=== PATIENT | male | born 1975 | race Two or more races ===

== ENCOUNTER 2020-03-18 22:19 | Inpatient (IN) | payer SELFPAY ==
[~2020-03-18] VITALS: Ht 157.5 cm; Wt 65.9 kg
[~2020-03-18 22:19] MED LIST: GLIM2TAB PO; METF1000 PO; OXYC5TAB4 PO
[2020-03-18 22:48] LABS: BASO % 0 % (0-3); EOS % 0 % (0-3); HEMATOCRIT 23.5 % (39.0-53.0); HEMOGLOBIN 7.5 g/dL (13.0-17.5); LYMPH # 0.8 x10^3/uL (1.0-4.8); LYMPH % 9 % (24-48); MEAN CORPUSCULAR HEMOGLOBIN 28 pg (25-35); MEAN CORPUSCULAR HGB CONC 32 g/dL (31-37); MEAN CORPUSCULAR VOLUME 88 fL (79-100); MONO # 0.7 x10^3/uL (0.0-1.1); MONO % 9 % (0-9); NEUT # 6.9 x10^3/uL (1.8-7.7); NEUT % 81 % (31-73); PLATELET COUNT 549 x10^3/uL (140-400); RED BLOOD COUNT 2.66 x10^6/uL (4.30-5.70); RED CELL DISTRIBUTION WIDTH 14.5 % (11.5-14.5); WHITE BLOOD COUNT 8.5 x10^3/uL (4.0-11.0)
[2020-03-18 23:04] LABS: ALBUMIN 1.3 g/dL (3.4-5.0); ALBUMIN/GLOBULIN RATIO 0.2 (1.0-1.7); C-REACTIVE PROTEIN 88.7 mg/L (0-3.3); CALCIUM 7.7 mg/dL (8.5-10.1); CREATININE 3.4 mg/dL (0.7-1.3); GFR 19.7; POTASSIUM 5.3 mmol/L (3.5-5.1); TOTAL BILIRUBIN 0.2 mg/dL (0.2-1.0); TOTAL PROTEIN 7.9 g/dL (6.4-8.2)
[2020-03-18] MEDS ORDERED: IV NORMAL SALINE 1000ML BAG 1,000 ML IV ONE (23:45)
--- NOTE | 2020-03-19 01:00 | RAD ---
AP portable chest radiograph 03/18/2020 Clinical History: Chest pain. An AP erect portable digital radiograph of the chest was obtained. No previous studies are available for comparison. The cardiac silhouette is normal in size. The thoracic aorta is minimally tortuous. Elevation right hemidiaphragm is seen. Infiltrate and/or atelectasis is seen involving the right lung probably involving the right lower lobe. The left lung is clear. No pneumothorax or pleural effusion is seen. The osseous structures are grossly intact. IMPRESSION: Right lung atelectasis and/or infiltrate. Electronically signed by: Reddy Fraga MD (03/19/2020 12:57 AM) [id number]
--- NOTE | 2020-03-19 02:20 | RAD ---
INDICATION: Reason: sob, abnormal XR / Spl. Instructions: / History: COMPARISON: Chest x-ray from earlier same day TECHNIQUE: Axial CT images obtained through the chest without contrast. One or more of the following individualized dose reduction techniques were utilized for this examination: 1. Automated exposure control; 2. Adjustment of the mA and/or kV according to patient size; 3. Use of iterative reconstruction technique. FINDINGS: Large loculated pleural effusion throughout the right chest was similar regions appearing higher than simple density which could be from complex component. There is adjacent opacity in the right lung which could be consolidation or mass. Dense masslike opacity in the left lung as well measuring approximately 35 mm. No pneumothorax. Nodular opacity left lower lung. Calcific atherosclerosis. Lymphadenopathy is seen within the mediastinum. Diffuse edema of soft tissues. Fullness of soft tissues in the upper abdomen with motion which obscures the region. Degenerative changes of spine. IMPRESSION: * Large regions of loculated fluid throughout the right hemithorax with adjacent opacities within the lung. Could be secondary causes such as pneumonia with parapneumonic effusion or empyema/abscess. Follow-up could be obtained to ensure this appropriately resolves to exclude neoplastic causes given the pulmonic opacity and lymphadenopathy. * There is an additional focal opacity at the right lung which could be infectious or inflammatory in nature but a mass is not excluded and follow up will need to ensure this resolves. * Fullness of the soft tissues at the partially visualized upper abdomen. The patient has very little intra-abdominal fat and difficult to tell how much of this fullness of the soft tissues is secondary to bowel loops and how much is secondary to edema within the mesentery or a mass. Electronically signed by: Michael Noriega MD (03/19/2020 2:17 AM) [id number]
[2020-03-19] MEDS ORDERED: PIPERACILLIN/TAZOBACTAM 3.375 GM in IV NORMAL SALINE 50ML 50 ML IV ONE (02:30)
[2020-03-19] MEDS ORDERED: INSULIN REGULAR 100 UNIT/ML 3ML VIAL. IV ONE (04:15)
[2020-03-19 05:26] VITALS: BP 125/67
--- NOTE | 2020-03-19 05:30 | PHYS DOC ---
Past Medical History Past Medical History: Diabetes-Type II Past Surgical History: Other Additional Past Surgical Histo: TOE AMPUTATION Smoking Status: Current Every Day Smoker Alcohol Use: Sober Additional Information: QUIT DRINKING 1-2 MONTHS AGO Drug Use: None General Adult EDM: Chief Complaint: CHEST PAIN HPI: HPI: Patient is a 44-year-old male with a past medical history of diabetes who presents to the emergency room complaining of right-sided upper chest wall pain that his been ongoing for the last 2 weeks. He states it is worse if he takes a deep breath or coughs. He has had a mild cough with this. He denies any fever. He had a gaines virus test last week that was normal. He did have some nausea and vomiting 2 weeks ago but this is now resolved. He has been taking his medications as prescribed for his diabetes but he is unsure what he is on. He states he has intermittent shortness of breath which is worse if he gets up and moves around. Review of Systems: Review of Systems: General: Denies fever, chills, sweats, fatigue Eyes: Denies drainage, blurred vision, eye redness HENT: Denies rhinorrhea, sore throat, earache Respiratory: Reports shortness of breath, cough Cardiac: Denies edema, palpitations.reports chest pain GI: Denies abdominal pain.reports nausea, vomiting MSK: Denies back pain, neck pain Skin: Denies rash, jaundice Neuro: Denies headache, dizziness Psychiatric: Denies SI/HI Heart Score: Risk Factors: Risk Factors: DM, Current or recent (<one month) smoker, HTN, HLP, family history of CAD, obesity. Risk Scores: Score 0 - 3: 2.5% MACE over next 6 weeks - Discharge Home Score 4 - 6: 20.3% MACE over next 6 weeks - Admit for Clinical Observation Score 7 - 10: 72.7% MACE over next 6 weeks - Early Invasive Strategies Current Medications: Current Medications Medications (Trade) Dose Ordered Sig/Sd Start Time Stop Time Status Last Admin Dose Admin Piperacillin Sod/ Tazobactam Sod 3.375 gm/Sodium Chloride 50 ml @ 100 mls/hr 1X ONCE 03/19/20 02:30 03/19/20 02:59 DC 03/19/20 02:56 100 MLS/HR Sodium Chloride 1,000 ml @ 1,000 mls/hr 1X ONCE 03/18/20 23:45 03/19/20 00:44 DC 03/18/20 23:48 1,000 MLS/HR Allergies: Allergies: Allergies Coded Allergies Type Severity Reaction Last Updated Verified No Known Drug Allergies 03/10/17 No Physical Exam: PE: General: Awake, alert, NAD. Well Nourished, well hydrated. Cooperative HEENT: Atraumatic, EOMI, PERRL, airway patent, moist oral mucosa Neck: Supple, trachea midline Respiratory: Decreased breath sounds on the right, normal effort, normal breath sounds on left side, no wheezing CV: RRR, no murmur, cap refill <2, 2+ pitting edema GI: Soft, nondistended, nontender, no masses MSK: No obvious deformities Skin: Warm, dry, intact Neuro: A&O x3, speech NL, sensory and motor grossly intact, no focal deficits Psych: Normal affect, normal mood, not suicidal or homicidal Current Patient Data: Labs: Laboratory Tests Test 03/18/20 22:30 03/19/20 04:13 White Blood Count 8.5 x10^3/uL (4.0-11.0) Red Blood Count 2.66 x10^6/uL (4.30-5.70) L Hemoglobin 7.5 g/dL (13.0-17.5) L Hematocrit 23.5 % (39.0-53.0) L Mean Corpuscular Volume 88 fL (79-100) Mean Corpuscular Hemoglobin 28 pg (25-35) Mean Corpuscular Hemoglobin Concent 32 g/dL (31-37) Red Cell Distribution Width 14.5 % (11.5-14.5) Platelet Count 549 x10^3/uL (140-400) H Neutrophils (%) (Auto) 81 % (31-73) H Lymphocytes (%) (Auto) 9 % (24-48) L Monocytes (%) (Auto) 9 % (0-9) Eosinophils (%) (Auto) 0 % (0-3) Basophils (%) (Auto) 0 % (0-3) Neutrophils # (Auto) 6.9 x10^3/uL (1.8-7.7) Lymphocytes # (Auto) 0.8 x10^3/uL (1.0-4.8) L Monocytes # (Auto) 0.7 x10^3/uL (0.0-1.1) Eosinophils # (Auto) 0.0 x10^3/uL (0.0-0.7) Basophils # (Auto) 0.0 x10^3/uL (0.0-0.2) D-Dimer (Melody) 7.23 ug/mlFEU (0.00-0.50) H Sodium Level 128 mmol/L (136-145) L Potassium Level 5.3 mmol/L (3.5-5.1) H Chloride Level 97 mmol/L (98-107) L Carbon Dioxide Level 25 mmol/L (21-32) Anion Gap 6 (6-14) Blood Urea Nitrogen 55 mg/dL (8-26) H Creatinine 3.4 mg/dL (0.7-1.3) H Estimated GFR (Cockcroft-Gault) 19.7 BUN/Creatinine Ratio 16 (6-20) Glucose Level 592 mg/dL (70-99) *H Calcium Level 7.7 mg/dL (8.5-10.1) L Total Bilirubin 0.2 mg/dL (0.2-1.0) Aspartate Amino Transferase (AST) 11 U/L (15-37) L Alanine Aminotransferase (ALT) 7 U/L (16-63) L Alkaline Phosphatase 145 U/L (46-116) H Lactate Dehydrogenase 136 U/L (85-227) Troponin I Quantitative < 0.017 ng/mL (0.000-0.055) C-Reactive Protein, Quantitative 88.7 mg/L (0-3.3) H MH-Tlv-L-Type Natriuretic Peptide 1471 pg/mL (0-124) H Total Protein 7.9 g/dL (6.4-8.2) Albumin 1.3 g/dL (3.4-5.0) L Albumin/Globulin Ratio 0.2 (1.0-1.7) L Lipase 206 U/L (73-393) Glucose (Fingerstick) 523 mg/dL (70-99) *H Laboratory Tests 03/18/20 22:30 Laboratory Tests 03/18/20 22:30 Vital Signs: Vital Signs Date Time Temp Pulse Resp B/P (MAP) Pulse Ox O2 Delivery O2 Flow Rate FiO2 03/19/20 02:58 92 18 152/82 (105) 96 Room Air 03/18/20 22:24 98.8 98.8 EKG: EKG: [] Radiology/Procedures: Radiology/Procedures: [] Course & Med Decision Making: Course & Med Decision Making Pertinent Labs and Imaging studies reviewed. (See chart for details) Patient is a 44-year-old male who presents to the emergency room complaining of chest pain, intermittent shortness of breath, occasional cough. Patient had a negative coronavirus test last week and has not had any count of fever. Chest x-ray is abnormal. Labs were ordered including CBC, CMP, d-dimer, CK. Patient has a significantly elevated d-dimer. Patient will need a VQ scan. CT chest was ordered to evaluate abnormal chest x-ray. He has multiple areas that reportedly could be fluid collections such as abscesses versus malignancy. Patient will be given Zosyn here in the emergency room. Patient does appear to have an acute kidney injury. He reports that he is making less urine. Patient will be given fluids for dehydration here in the emergency room. Patient will be admitted for further care and evaluation. He was given insulin for his hyperglycemia. [employer] Disclaimer: [employer] Disclaimer: This electronic medical record was generated, in whole or in part, using a voice recognition dictation system. Departure Departure Impression: Primary Impression: Fluid in chest cavity associated with lung infection Additional Impressions: ARSLAN (acute kidney injury) Hyperglycemia Disposition: ADMITTED INPATIENT Condition: STABLE Referrals: UNKNOWN PCP NAME (PCP) Justicifation of Admission Dx: Justifications for Admission: Justification of Admission Dx: Yes ROBBY TEAGUE MD Mar 19, 2020 05:30
[2020-03-19 07:00] VITALS: BP 155/82
[2020-03-19] MEDS ORDERED: ALBUTEROL SULFATE 2.5 MG/3 ML NEBU. NEB PRN (08:30)
[2020-03-19] MEDS ORDERED: DEXTROSE 50% 25 GM / 50ML DISP.SYRIN. IV PRN (08:30)
[2020-03-19] MEDS ORDERED: ENOXAPARIN 40 MG/0.4 ML SYRINGE. SQ SCH (08:30)
[2020-03-19] MEDS ORDERED: ZOLPIDEM 5 MG TABLET. PO PRN (08:30)
[2020-03-19] MEDS ORDERED: guaiFENesin ORAL 200 MG/10 ML LIQUID. PO PRN (08:30)
[2020-03-19] MEDS ORDERED: ONDANSETRON PF 4 MG/2 ML VIAL. IV PRN (08:30)
[2020-03-19] MEDS ORDERED: LORazepam 0.5 MG TABLET PO PRN (08:30)
[2020-03-19] MEDS ORDERED: oxyCODONE IR 5 MG TABLET PO PRN (08:30)
[2020-03-19] MEDS ORDERED: ACETAMINOPHEN 325 MG TABLET. PO PRN (08:30)
[2020-03-19] MEDS ORDERED: diphenhydrAMINE 50 MG/ML VIAL IVP PRN (08:30)
[2020-03-19] MEDS: IV NORMAL SALINE 1000ML BAG 1,000 ML IV SCH ×2 (08:52→23:48)
[2020-03-19] MEDS: INSULIN LISPRO 300 UNITS/3 ML VIAL. SQ SCH ×3 (08:59→17:30)
[2020-03-19] MEDS: INSULIN GLARGINE SYRINGE. SQ SCH ×2 (09:00→22:18)
[2020-03-19] MEDS ORDERED: ENOXAPARIN 30 MG/0.3 ML SYRINGE. SQ SCH (09:00)
--- NOTE | 2020-03-19 09:54 | NUR ---
Per Dr. Ham, hold [facility] this A.M. for possible chest tube placement.
[2020-03-19 10:07] LABS: PROTHROMBIN TIME PATIENT 14.1 SEC (11.7-14.0)
--- NOTE | 2020-03-19 10:30 | CONS ---
DATE OF CONSULTATION: 03/19/2020 PULMONARY CONSULTATION ATTENDING PHYSICIAN: Dr. Sears. REASON FOR CONSULTATION: Abnormal CT chest with loculated effusions. HISTORY OF PRESENT ILLNESS: The patient is a 44-year-old male who does not speak [place]ian. He came to the hospital with complaint of right-sided chest wall pain. This was going on for 2 weeks. He has a loss of appetite and weight loss. He was tested negative for coronavirus. He had some nausea and vomiting. The patient has been in [place]. Much of the history was obtained through interpretation, which was done by Dr. Sears. I have reviewed the patient's CT chest and he has multiloculated large right-sided pleural effusions, likely empyema. He also has mediastinal adenopathy, right hilar adenopathy with narrowing of the right mainstem bronchus. The patient had also another opacity in the right lung, which could be again pocket of fluid versus mass. I have been asked to see him for further evaluation. PAST MEDICAL HISTORY: Significant for diabetes type 2 and toe amputation. PAST SURGICAL HISTORY: Toe amputation. SOCIAL HISTORY: Every day smoker. ALLERGIES: None. MEDICATIONS: Reviewed as listed in the MRAD including antibiotics, Zosyn and Lovenox for DVT prophylaxis. REVIEW OF SYSTEMS: Unable to obtain due to language barrier. SOCIAL HISTORY: Lives in for 3 years. PHYSICAL EXAMINATION: VITAL SIGNS: Reviewed. He is afebrile, pulse ox 96% on room air. NECK: Supple. LUNGS: With diminished breath sounds on right side. CARDIOVASCULAR: With a regular rate and rhythm. ABDOMEN: Soft. EXTREMITIES: With toe amputation. He has got some swelling in the right foot and some finger clubbing. LABORATORY DATA: Reviewed. D-dimer is 7.23. Glucose 592. Sodium 128, potassium 5.3, BUN 55 and creatinine 3.4. Hemoglobin is 7.5. IMPRESSION: 1. Abnormal CT chest with multi-loculated right sided pleural-effusions along with mediastinal and right hilar adenopathy and narrowing of the right mainstem bronchus. He has another pocket of density in the left lung as well. The patient has lost weight, loss of appetite and came in with chest wall pain. Differential diagnosis would include: A. Empyema with reactive adenopathy. B. Cannot exclude the possibility of malignancy. C. Cannot exclude TB pleuritis. 2. Acute kidney injury. 3. Hyponatremia. 4. Anemia of chronic disease. 5. Hyperglycemia. RECOMMENDATIONS: 1. I have discussed with Dr. Sears and RN. At this point, he would need at least [address]-guided to rule out empyema as well as rule out malignancy. 2. We will do a contrast CT chest on Saturday. 3. We will need probably tPA via chest tube. 4. Consult Renal and follow their recommendations. 5. Monitor sodium. 6. TB QuantiFERON test. 7. D-dimer is high, which could be related to an empyema or malignancy. We will hold Lovenox due to a need for chest tubes.No need to do Perfusion scan. Get v. Dopplers. 8. Monitoring of glucose per PCP. 9. Discussed with Dr. Sears. We will follow along with you. CLAYTON CARRILLO MD DR: MARICRUZ/eileen JOB#: [id number] / [id number] MASON
[2020-03-19] MEDS ORDERED: LIDOCAINE 1% Multi-Dose 20 ML VIAL. ONE (10:53)
[2020-03-19 11:00] VITALS: BP 138/81
[2020-03-19] MEDS ORDERED: LIDOCAINE WITH 8.4% SOD BICARB 3 ML DISP.SYRIN. INJ ONE (11:00)
--- NOTE | 2020-03-19 11:57 | PDOC1 ---
History and Physical Date of Admission Date of Admission 03/19/2020 Identification/Chief Complaint Chief Complaint My chest hurts Source Source: Chart review, Patient History of Present Illness History of Present Illness Patient is a 44-year-old gentleman who comes in with a history of more or less 2 weeks of fever and a dry cough, he has reported also weight loss that has not been quantified but his clothes feel looser than usual, the patient has had a very poor appetite and has not been able to eat since every time he attempts to he vomits, he has also reported back pain with no alarming signs except for the weight loss that he has had due to the lack of food intake. He denies saddle anesthesia he does not have history of incontinence of urine or stool no history of traveling outside the country for the last 3 years. 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 Patient does not give history of pets at home. no sick co ntacts have been reported at the time my evaluation patient is now presenting increased work of breathing and the main reason he decided to come in is due to his pleuritic chest discomfort. Plan of care has been explained in detail and I have discussed the case with interventional radiology and pulmonary knowledge management consultant. We will continue with broad- spectrum antibiotics and also order tuberculosis work-up as part of the differential Past Medical History Cardiovascular: HTN, Hyperlipidemia Endocrine: Diabetes Past Surgical History Past Surgical History: Other (Right first and second toe amputation) Family History Family History: No Significant, Diabetes Social History Smoke: # pack years (8) ALCOHOL: none Drugs: None Current Medications Current Medications Current Medications Medications (Trade) Dose Ordered Sig/Sd Start Time Stop Time Status Last Admin Dose Admin Acetaminophen (Tylenol) 650 mg PRN Q4HRS PRN 03/19/20 08:30 Albuterol Sulfate (Ventolin Neb Soln) 2.5 mg PRN Q4HRS PRN 03/19/20 08:30 Dextrose (Dextrose 50%-Water Syringe) 12.5 gm PRN Q15MIN PRN 03/19/20 08:30 Diphenhydramine HCl (Benadryl) 25 mg PRN Q4HRS PRN 03/19/20 08:30 Enoxaparin Sodium (Lovenox 30mg Syringe) 30 mg Q24H 03/19/20 09:00 Enoxaparin Sodium (Lovenox 40mg Syringe) 40 mg Q24H 03/19/20 08:30 UNV Guaifenesin (Robitussin) 200 mg PRN Q4HRS PRN 03/19/20 08:30 Insulin Glargine (Lantus Syringe) 10 unit BID 03/19/20 09:00 03/19/20 09:00 10 UNIT Insulin Human Lispro (HumaLOG) 0-9 UNITS TIDWMEALS 03/19/20 08:45 03/19/20 08:59 9 UNITS Insulin Human Regular (HumuLIN R VIAL) 8 unit 1X ONCE 03/19/20 04:15 03/19/20 04:35 DC 03/19/20 04:42 8 UNIT Lidocaine HCl (Buffered Lidocaine 1%) 12 ml 1X ONCE 03/19/20 11:00 03/19/20 11:01 DC Lidocaine HCl (Lidocaine 1% 20ml Vial) 20 ml STK-MED ONCE 03/19/20 10:53 03/19/20 10:53 DC Lorazepam (Ativan) 0.5 mg PRN Q4HRS PRN 03/19/20 08:30 Ondansetron HCl (Zofran) 4 mg PRN Q4HRS PRN 03/19/20 08:30 Oxycodone HCl (Roxicodone) 5 mg PRN Q6HRS PRN 03/19/20 08:30 Piperacillin Sod/ Tazobactam Sod 3.375 gm/Sodium Chloride 50 ml @ 100 mls/hr Q6HRS 03/19/20 12:00 Sodium Chloride 1,000 ml @ 100 mls/hr Q10H 03/19/20 08:22 03/19/20 08:52 100 MLS/HR Zolpidem Tartrate (Ambien) 5 mg PRN QHS PRN 03/19/20 08:30 Allergies Allergies Allergies Coded Allergies Type Severity Reaction Last Updated Verified No Known Drug Allergies 03/10/17 No ROS Review of System CONSTITUTIONAL: No fever or chills EYES: No recent changes SKIN: No rash or itching CARDIOVASCULAR: No chest pain, syncope, palpitations, or edema RESPIRATORY: Shortness of breath and dry cough GASTROINTESTINAL: Vomiting but no abdominal pain NEUROLOGICAL: No headaches or weakness ENDOCRINE: No cold or heat intolerance GENITOURINARY: No urgency or frequency of urination MUSCULOSKELETAL: Positive for back pain no joint pain LYMPHATICS: No enlarged lymph nodes PSYCHIATRIC: No anxiety or depression Physical Exam Physical Exam GEN.: Chronically ill-appearing older than the stated age no apparent distress. Alert and oriented. HEENT: Head is normocephalic, atraumatic NECK: Supple. LUNGS: Clear to auscultation. HEART: RRR, S1, S2 present. Peripheral pulses intact ABDOMEN: Soft, nontender. Positive bowel sounds. EXTREMITIES: Without any cyanosis. Positive clubbing first and second great toe amputation with no evidence of diabetic ulcers on his feet NEUROLOGIC: Normal speech, normal tone PSYCHIATRIC: Normal affect, normal mood. SKIN: No ulcerations Vitals Vitals Vital Signs Date Time Temp Pulse Resp B/P (MAP) Pulse Ox O2 Delivery O2 Flow Rate FiO2 03/19/20 07:00 98.1 87 16 155/82 (106) 96 Room Air 98.1 Labs Labs Laboratory Tests Test 03/18/20 22:30 03/19/20 04:13 03/19/20 07:33 03/19/20 09:15 White Blood Count 8.5 x10^3/uL (4.0-11.0) Red Blood Count 2.66 x10^6/uL (4.30-5.70) Hemoglobin 7.5 g/dL (13.0-17.5) Hematocrit 23.5 % (39.0-53.0) Mean Corpuscular Volume 88 fL (79-100) Mean Corpuscular Hemoglobin 28 pg (25-35) Mean Corpuscular Hemoglobin Concent 32 g/dL (31-37) Red Cell Distribution Width 14.5 % (11.5-14.5) Platelet Count 549 x10^3/uL (140-400) Neutrophils (%) (Auto) 81 % (31-73) Lymphocytes (%) (Auto) 9 % (24-48) Monocytes (%) (Auto) 9 % (0-9) Eosinophils (%) (Auto) 0 % (0-3) Basophils (%) (Auto) 0 % (0-3) Neutrophils # (Auto) 6.9 x10^3/uL (1.8-7.7) Lymphocytes # (Auto) 0.8 x10^3/uL (1.0-4.8) Monocytes # (Auto) 0.7 x10^3/uL (0.0-1.1) Eosinophils # (Auto) 0.0 x10^3/uL (0.0-0.7) Basophils # (Auto) 0.0 x10^3/uL (0.0-0.2) D-Dimer (Melody) 7.23 ug/mlFEU (0.00-0.50) Sodium Level 128 mmol/L (136-145) Potassium Level 5.3 mmol/L (3.5-5.1) Chloride Level 97 mmol/L (98-107) Carbon Dioxide Level 25 mmol/L (21-32) Anion Gap 6 (6-14) Blood Urea Nitrogen 55 mg/dL (8-26) Creatinine 3.4 mg/dL (0.7-1.3) Estimated GFR (Cockcroft-Gault) 19.7 BUN/Creatinine Ratio 16 (6-20) Glucose Level 592 mg/dL (70-99) Calcium Level 7.7 mg/dL (8.5-10.1) Total Bilirubin 0.2 mg/dL (0.2-1.0) Aspartate Amino Transf (AST/SGOT) 11 U/L (15-37) Alanine Aminotransferase (ALT/SGPT) 7 U/L (16-63) Alkaline Phosphatase 145 U/L (46-116) Lactate Dehydrogenase 136 U/L (85-227) Troponin I Quantitative < 0.017 ng/mL (0.000-0.055) C-Reactive Protein, Quantitative 88.7 mg/L (0-3.3) YQ-Cpy-A-Type Natriuretic Peptide 1471 pg/mL (0-124) Total Protein 7.9 g/dL (6.4-8.2) Albumin 1.3 g/dL (3.4-5.0) Albumin/Globulin Ratio 0.2 (1.0-1.7) Lipase 206 U/L (73-393) Glucose (Fingerstick) 523 mg/dL (70-99) 515 mg/dL (70-99) Prothrombin Time 14.1 SEC (11.7-14.0) Prothromb Time International Ratio 1.1 (0.8-1.1) Activated Partial Thromboplast Time 39 SEC (24-38) Laboratory Tests Test 03/18/20 22:30 03/19/20 04:13 03/19/20 07:33 03/19/20 09:15 White Blood Count 8.5 x10^3/uL (4.0-11.0) Red Blood Count 2.66 x10^6/uL (4.30-5.70) Hemoglobin 7.5 g/dL (13.0-17.5) Hematocrit 23.5 % (39.0-53.0) Mean Corpuscular Volume 88 fL (79-100) Mean Corpuscular Hemoglobin 28 pg (25-35) Mean Corpuscular Hemoglobin Concent 32 g/dL (31-37) Red Cell Distribution Width 14.5 % (11.5-14.5) Platelet Count 549 x10^3/uL (140-400) Neutrophils (%) (Auto) 81 % (31-73) Lymphocytes (%) (Auto) 9 % (24-48) Monocytes (%) (Auto) 9 % (0-9) Eosinophils (%) (Auto) 0 % (0-3) Basophils (%) (Auto) 0 % (0-3) Neutrophils # (Auto) 6.9 x10^3/uL (1.8-7.7) Lymphocytes # (Auto) 0.8 x10^3/uL (1.0-4.8) Monocytes # (Auto) 0.7 x10^3/uL (0.0-1.1) Eosinophils # (Auto) 0.0 x10^3/uL (0.0-0.7) Basophils # (Auto) 0.0 x10^3/uL (0.0-0.2) D-Dimer (Melody) 7.23 ug/mlFEU (0.00-0.50) Sodium Level 128 mmol/L (136-145) Potassium Level 5.3 mmol/L (3.5-5.1) Chloride Level 97 mmol/L (98-107) Carbon Dioxide Level 25 mmol/L (21-32) Anion Gap 6 (6-14) Blood Urea Nitrogen 55 mg/dL (8-26) Creatinine 3.4 mg/dL (0.7-1.3) Estimated GFR (Cockcroft-Gault) 19.7 BUN/Creatinine Ratio 16 (6-20) Glucose Level 592 mg/dL (70-99) Calcium Level 7.7 mg/dL (8.5-10.1) Total Bilirubin 0.2 mg/dL (0.2-1.0) Aspartate Amino Transf (AST/SGOT) 11 U/L (15-37) Alanine Aminotransferase (ALT/SGPT) 7 U/L (16-63) Alkaline Phosphatase 145 U/L (46-116) Lactate Dehydrogenase 136 U/L (85-227) Troponin I Quantitative < 0.017 ng/mL (0.000-0.055) C-Reactive Protein, Quantitative 88.7 mg/L (0-3.3) DD-Lsw-E-Type Natriuretic Peptide 1471 pg/mL (0-124) Total Protein 7.9 g/dL (6.4-8.2) Albumin 1.3 g/dL (3.4-5.0) Albumin/Globulin Ratio 0.2 (1.0-1.7) Lipase 206 U/L (73-393) Glucose (Fingerstick) 523 mg/dL (70-99) 515 mg/dL (70-99) Prothrombin Time 14.1 SEC (11.7-14.0) Prothromb Time International Ratio 1.1 (0.8-1.1) Activated Partial Thromboplast Time 39 SEC (24-38) VTE Prophylaxis Ordered VTE Prophylaxis Devices: No VTE Pharmacological Prophylaxi: Yes Assessment/Plan Assessment/Plan Multiloculated right-sided pleural effusion Mediastinal and right hilar adenopathy Hyponatremia Acute renal failure secondary to most likely vasomotor nephropathy Diabetes mellitus type 2 uncontrolled Anemia of chronic disease Plan Consult interventional radiology for thoracentesis and probable chest tube Broad-spectrum antibiotics Will order QuantiFERON test Nephrology consultation Hyponatremia most likely a result of his hyperglycemia Hold off on anticoagulation until procedure has been done D-dimer is high we will continue to monitor his respiratory status unlikely to have benefit from a VQ scan Insulin therapy for better glycemic control Further recommendations based on the clinical course BEVERLY VALERIO MD Mar 19, 2020 11:57
[2020-03-19] MEDS ORDERED: INSULIN LISPRO 300 UNITS/3 ML VIAL. SQ SCH (12:00)
[2020-03-19 12:39] LABS: ALBUMIN 1.1 g/dL (3.4-5.0); CALCIUM 7.4 mg/dL (8.5-10.1); CREATININE 2.9 mg/dL (0.7-1.3); GFR 23.6; PHOSPHORUS 3.7 mg/dL (2.6-4.7); POTASSIUM 5.3 mmol/L (3.5-5.1)
[2020-03-19] MEDS ORDERED: INSULIN LISPRO 300 UNITS/3 ML VIAL. SQ ONE (13:00)
[2020-03-19] MEDS: PIPERACILLIN/TAZOBACTAM 3.375 GM in IV NORMAL SALINE 50ML 50 ML IV SCH ×3 (13:10→23:48)
--- NOTE | 2020-03-19 13:23 | PDOC2 ---
CONSULT Date of Consult Date of Consult DATE: 03/19/20 TIME: 13:08 Reason for Consult Reason for Consult: ARSLAN Source Source: Chart review History of Present Illness Reason for Visit: Hx Obtained from Chart review and nursing - Pt doesn't speak or understand turkmen Patient is a 44-year-old divehi speaking male who comes in with a history of approx 2 weeks of fever and a dry cough, he has reported weight loss that has not been quantified but his clothes feel looser than usual. He reports very poor appetite and has not been able to eat since every time he attempts to he vomits. He is also c/o back pain Denies history of incontinence of urine or stool, no history of traveling outside the country for the last 3 years. 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 No urinary complaints. Per RN no UOp since presentation. No Imaging done in the ER . Recd IVF in ER PMHx significant for DM Past Medical History Cardiovascular: HTN, Hyperlipidemia Endocrine: Diabetes Past Surgical History Past Surgical History: Other (Right first and second toe amputation) Family History Family History: No Significant, Diabetes Social History # pack years (8) ALCOHOL: none Drugs: None Current Medications Current Medications Current Medications Sodium Chloride 1,000 ml @ 1,000 mls/hr 1X ONCE IV Last administered on 03/18/20at 23:48; Start 03/18/20 at 23:45; Stop 03/19/20 at 00:44; Status DC Piperacillin Sod/ Tazobactam Sod 3.375 gm/Sodium Chloride 50 ml @ 100 mls/hr 1X ONCE IV Last administered on 03/19/20at 02:56; Start 03/19/20 at 02:30; Stop 03/19/20 at 02:59; Status DC Insulin Human Regular (HumuLIN R VIAL) 8 unit 1X ONCE IV Last administered on 03/19/20at 04:42; Start 03/19/20 at 04:15; Stop 03/19/20 at 04:35; Status DC Sodium Chloride 1,000 ml @ 100 mls/hr Q10H IV Last administered on 03/19/20at 08:52; Start 03/19/20 at 08:22 Ondansetron HCl (Zofran) 4 mg PRN Q4HRS PRN IV NAUSEA/VOMITING; Start 03/19/20 at 08:30 Zolpidem Tartrate (Ambien) 5 mg PRN QHS PRN PO INSOMNIA; Start 03/19/20 at 08:30 Acetaminophen (Tylenol) 650 mg PRN Q4HRS PRN PO TEMP OVER 100.4F OR MILD PAIN; Start 03/19/20 at 08:30 Diphenhydramine HCl (Benadryl) 25 mg PRN Q4HRS PRN IVP ITCHING; Start 03/19/20 at 08:30 Albuterol Sulfate (Ventolin Neb Soln) 2.5 mg PRN Q4HRS PRN NEB SHORTNESS OF BREATH; Start 03/19/20 at 08:30 Guaifenesin (Robitussin) 200 mg PRN Q4HRS PRN PO COUGH; Start 03/19/20 at 08:30 Lorazepam (Ativan) 0.5 mg PRN Q4HRS PRN PO ANXIETY / AGITATION; Start 03/19/20 at 08:30 Enoxaparin Sodium (Lovenox 40mg Syringe) 40 mg Q24H SQ ; Start 03/19/20 at 08:30; Status UNV Oxycodone HCl (Roxicodone) 5 mg PRN Q6HRS PRN PO MILD - MODERATE PAIN; Start 03/19/20 at 08:30 Piperacillin Sod/ Tazobactam Sod 3.375 gm/Sodium Chloride 50 ml @ 100 mls/hr Q6HRS IV ; Start 03/19/20 at 12:00 Insulin Human Lispro (HumaLOG) 0-9 UNITS TIDWMEALS SQ ; Start 03/19/20 at 12:00; Stop 03/19/20 at 08:36; Status DC Dextrose (Dextrose 50%-Water Syringe) 12.5 gm PRN Q15MIN PRN IV SEE COMMENTS; Start 03/19/20 at 08:30 Insulin Glargine (Lantus Syringe) 10 unit BID SQ Last administered on 03/19/20at 09:00; Start 03/19/20 at 09:00 Insulin Human Lispro (HumaLOG) 0-9 UNITS TIDWMEALS SQ Last administered on 03/19/20at 12:52; Start 03/19/20 at 08:45 Enoxaparin Sodium (Lovenox 30mg Syringe) 30 mg Q24H SQ ; Start 03/19/20 at 09:00 Lidocaine HCl (Buffered Lidocaine 1%) 12 ml 1X ONCE INJ ; Start 03/19/20 at 11:00; Stop 03/19/20 at 11:01; Status DC Lidocaine HCl (Lidocaine 1% 20ml Vial) 20 ml STK-MED ONCE .ROUTE ; Start 03/19/20 at 10:53; Stop 03/19/20 at 10:53; Status DC Insulin Human Lispro (HumaLOG) 5 units 1X ONCE SQ Last administered on 03/19/20at 12:51; Start 03/19/20 at 13:00; Stop 03/19/20 at 13:01; Status DC Active Scripts Active Oxycodone Hcl Immed.release (Oxycodone Hcl) 5 Mg Tablet 5 Mg PO PRN Q6HRS PRN Glucophage (Metformin Hcl) 1,000 Mg Tablet 1,000 Mg PO BIDWMEALS 30 Days Amaryl (Glimepiride) 2 Mg Tablet 2 Mg PO DAILY 30 Days Allergies Allergies: Coded Allergies: No Known Drug Allergies (Unverified , 03/10/17) ROS Review of System Per HPI, rest of the ROS is negative Physical Exam Physical Exam GEN.: no apparent distress. HEENT: OM dry NECK: Supple. LUNGS: Diminshed at bases, Non labored HEART: RRR, S1, S2 present. ABDOMEN: Soft, nontender. EXTREMITIES: Without any cyanosis. first and second great toe amputation, No LE edema NEUROLOGIC: Normal speech, normal tone PSYCHIATRIC: Normal affect, normal mood. SKIN: No rash No CVA or SP tenderness, No Kumar Vital Signs Vital Signs Date Time Temp Pulse Resp B/P (MAP) Pulse Ox O2 Delivery O2 Flow Rate FiO2 03/19/20 08:00 Room Air 03/19/20 07:00 98.1 87 16 155/82 (510) 96 98.1 Assessment & Plan ARSLAN - Suspect Vasomotor 2/2 dehydration Cr at presentation 3.4, ordered labs for today Check UA, Renal US, CK Continue IVF, strict I/O, Bladder scan prn per protocol, avoid nephrotoxins CKD Stage 3 - Baseline Cr 1.5-1.6 in 2016 per [facility] records No interval labs available Presumably due to Diabetes Nephrosclerosis HyperKalemia- Mild, 2/2 Hyperglycemia Anemia -check Fe studies and further frey Multiloculated right-sided pleural effusion- Thoracentesis today Wt loss - r/o malignnacy and TB Mediastinal and right hilar adenopathy Hyponatremia- Corrected for Glucose Na normal Diabetes mellitus type 2 uncontrolled- BS significantly high, was on metformin per home med list Severe Hypoalbuminemia HTN- BP high, Resume home meds Labs Labs Laboratory Tests Test 03/18/20 22:30 03/19/20 04:13 03/19/20 07:33 03/19/20 09:15 White Blood Count 8.5 x10^3/uL (4.0-11.0) Red Blood Count 2.66 x10^6/uL (4.30-5.70) Hemoglobin 7.5 g/dL (13.0-17.5) Hematocrit 23.5 % (39.0-53.0) Mean Corpuscular Volume 88 fL (79-100) Mean Corpuscular Hemoglobin 28 pg (25-35) Mean Corpuscular Hemoglobin Concent 32 g/dL (31-37) Red Cell Distribution Width 14.5 % (11.5-14.5) Platelet Count 549 x10^3/uL (140-400) Neutrophils (%) (Auto) 81 % (31-73) Lymphocytes (%) (Auto) 9 % (24-48) Monocytes (%) (Auto) 9 % (0-9) Eosinophils (%) (Auto) 0 % (0-3) Basophils (%) (Auto) 0 % (0-3) Neutrophils # (Auto) 6.9 x10^3/uL (1.8-7.7) Lymphocytes # (Auto) 0.8 x10^3/uL (1.0-4.8) Monocytes # (Auto) 0.7 x10^3/uL (0.0-1.1) Eosinophils # (Auto) 0.0 x10^3/uL (0.0-0.7) Basophils # (Auto) 0.0 x10^3/uL (0.0-0.2) D-Dimer (Melody) 7.23 ug/mlFEU (0.00-0.50) Sodium Level 128 mmol/L (136-145) 132 mmol/L (136-145) Potassium Level 5.3 mmol/L (3.5-5.1) 5.3 mmol/L (3.5-5.1) Chloride Level 97 mmol/L (98-107) 99 mmol/L (98-107) Carbon Dioxide Level 25 mmol/L (21-32) 25 mmol/L (21-32) Anion Gap 6 (6-14) 8 (6-14) Blood Urea Nitrogen 55 mg/dL (8-26) 49 mg/dL (8-26) Creatinine 3.4 mg/dL (0.7-1.3) 2.9 mg/dL (0.7-1.3) Estimated GFR (Cockcroft-Gault) 19.7 23.6 BUN/Creatinine Ratio 16 (6-20) Glucose Level 592 mg/dL (70-99) 540 mg/dL (70-99) Calcium Level 7.7 mg/dL (8.5-10.1) 7.4 mg/dL (8.5-10.1) Total Bilirubin 0.2 mg/dL (0.2-1.0) Aspartate Amino Transf (AST/SGOT) 11 U/L (15-37) Alanine Aminotransferase (ALT/SGPT) 7 U/L (16-63) Alkaline Phosphatase 145 U/L (46-116) Lactate Dehydrogenase 136 U/L (85-227) Troponin I Quantitative < 0.017 ng/mL (0.000-0.055) C-Reactive Protein, Quantitative 88.7 mg/L (0-3.3) RO-Jvv-O-Type Natriuretic Peptide 1471 pg/mL (0-124) Total Protein 7.9 g/dL (6.4-8.2) Albumin 1.3 g/dL (3.4-5.0) 1.1 g/dL (3.4-5.0) Albumin/Globulin Ratio 0.2 (1.0-1.7) Lipase 206 U/L (73-393) Glucose (Fingerstick) 523 mg/dL (70-99) 515 mg/dL (70-99) Prothrombin Time 14.1 SEC (11.7-14.0) Prothromb Time International Ratio 1.1 (0.8-1.1) Activated Partial Thromboplast Time 39 SEC (24-38) Phosphorus Level 3.7 mg/dL (2.6-4.7) Creatine Kinase 43 U/L (39-308) Test 03/19/20 11:54 Glucose (Fingerstick) 415 mg/dL (70-99) Laboratory Tests Test 03/18/20 22:30 03/19/20 04:13 03/19/20 07:33 03/19/20 09:15 White Blood Count 8.5 x10^3/uL (4.0-11.0) Red Blood Count 2.66 x10^6/uL (4.30-5.70) Hemoglobin 7.5 g/dL (13.0-17.5) Hematocrit 23.5 % (39.0-53.0) Mean Corpuscular Volume 88 fL (79-100) Mean Corpuscular Hemoglobin 28 pg (25-35) Mean Corpuscular Hemoglobin Concent 32 g/dL (31-37) Red Cell Distribution Width 14.5 % (11.5-14.5) Platelet Count 549 x10^3/uL (140-400) Neutrophils (%) (Auto) 81 % (31-73) Lymphocytes (%) (Auto) 9 % (24-48) Monocytes (%) (Auto) 9 % (0-9) Eosinophils (%) (Auto) 0 % (0-3) Basophils (%) (Auto) 0 % (0-3) Neutrophils # (Auto) 6.9 x10^3/uL (1.8-7.7) Lymphocytes # (Auto) 0.8 x10^3/uL (1.0-4.8) Monocytes # (Auto) 0.7 x10^3/uL (0.0-1.1) Eosinophils # (Auto) 0.0 x10^3/uL (0.0-0.7) Basophils # (Auto) 0.0 x10^3/uL (0.0-0.2) D-Dimer (Melody) 7.23 ug/mlFEU (0.00-0.50) Sodium Level 128 mmol/L (136-145) 132 mmol/L (136-145) Potassium Level 5.3 mmol/L (3.5-5.1) 5.3 mmol/L (3.5-5.1) Chloride Level 97 mmol/L (98-107) 99 mmol/L (98-107) Carbon Dioxide Level 25 mmol/L (21-32) 25 mmol/L (21-32) Anion Gap 6 (6-14) 8 (6-14) Blood Urea Nitrogen 55 mg/dL (8-26) 49 mg/dL (8-26) Creatinine 3.4 mg/dL (0.7-1.3) 2.9 mg/dL (0.7-1.3) Estimated GFR (Cockcroft-Gault) 19.7 23.6 BUN/Creatinine Ratio 16 (6-20) Glucose Level 592 mg/dL (70-99) 540 mg/dL (70-99) Calcium Level 7.7 mg/dL (8.5-10.1) 7.4 mg/dL (8.5-10.1) Total Bilirubin 0.2 mg/dL (0.2-1.0) Aspartate Amino Transf (AST/SGOT) 11 U/L (15-37) Alanine Aminotransferase (ALT/SGPT) 7 U/L (16-63) Alkaline Phosphatase 145 U/L (46-116) Lactate Dehydrogenase 136 U/L (85-227) Troponin I Quantitative < 0.017 ng/mL (0.000-0.055) C-Reactive Protein, Quantitative 88.7 mg/L (0-3.3) KT-Qiq-S-Type Natriuretic Peptide 1471 pg/mL (0-124) Total Protein 7.9 g/dL (6.4-8.2) Albumin 1.3 g/dL (3.4-5.0) 1.1 g/dL (3.4-5.0) Albumin/Globulin Ratio 0.2 (1.0-1.7) Lipase 206 U/L (73-393) Glucose (Fingerstick) 523 mg/dL (70-99) 515 mg/dL (70-99) Prothrombin Time 14.1 SEC (11.7-14.0) Prothromb Time International Ratio 1.1 (0.8-1.1) Activated Partial Thromboplast Time 39 SEC (24-38) Phosphorus Level 3.7 mg/dL (2.6-4.7) Creatine Kinase 43 U/L (39-308) Test 03/19/20 11:54 Glucose (Fingerstick) 415 mg/dL (70-99) Review All relevant outside records, renal labs, imaging studies, telemetry/EKG's were reviewed. Images Images CT chest-- * Large regions of loculated fluid throughout the right hemithorax with adjacent opacities within the lung. Could be secondary causes such as pneumonia with parapneumonic effusion or empyema/abscess. Follow-up could be obtained to ensure this appropriately resolves to exclude neoplastic causes given the pulmonic opacity and lymphadenopathy. * There is an additional focal opacity at the right lung which could be infectious or inflammatory in nature but a mass is not excluded and follow up will need to ensure this resolves. * Fullness of the soft tissues at the partially visualized upper abdomen. The patient has very little intra-abdominal fat and difficult to tell how much of this fullness of the soft tissues is secondary to bowel loops and how much is secondary to edema within the mesentery or a mass. CEDRIC SLATER MD Mar 19, 2020 13:23
[2020-03-19 14:35] LABS: BILIRUBIN,URINE NEGATIVE (NEG); CLARITY,URINE CLEAR; COLOR,URINE YELLOW; NITRITE,URINE NEGATIVE (NEG); PROTEIN,URINE 100 mg/dL (NEG-TRACE)
[2020-03-19 14:48] LABS: BACTERIA,URINE 0 /HPF (0-FEW); RBC,URINE RARE /HPF (0-2); WBC,URINE 0 /HPF (0-4)
[2020-03-19 15:20] VITALS: BP 120/74
[2020-03-19 15:29] LABS: CREATININE,RANDOM URINE 49.3 mg/dL (Not Establ.)
--- NOTE | 2020-03-19 16:15 | RAD ---
EXAM: Bilateral lower extremity venous Doppler sonogram. HISTORY: Pain and swelling. TECHNIQUE: Sullivan scale and color Doppler sonographic evaluation of the bilateral lower extremity veins with spectral waveform analysis was performed. FINDINGS: There is normal color flow, normal compressibility and there are normal spectral waveforms in the common femoral, superficial femoral, popliteal, posterior tibial and greater saphenous veins. IMPRESSION: No Doppler evidence of lower extremity deep venous thrombosis. Electronically signed by: Francesca Hartley MD (03/19/2020 4:12 PM) [facility]
--- NOTE | 2020-03-19 16:16 | RAD ---
EXAM: Renal sonogram. HISTORY: Renal insufficiency. TECHNIQUE: Sonographic imaging of the kidneys and bladder was performed. COMPARISON: None. FINDINGS: The kidneys are normal in size. No solid or cystic renal lesion is seen. There is no hydronephrosis. There is a Kumar catheter within the bladder. IMPRESSION: Sonographically unremarkable kidneys. Electronically signed by: Francesca Hartley MD (03/19/2020 4:13 PM) [facility]
[2020-03-19 16:49] LABS: BF CLARITY TURBID; BF RBC COUNT 128970 /cmm (Not Established); BF SOURCE PLEURAL
[2020-03-19 16:50] LABS: BF COLOR STRAW
[2020-03-19 16:52] LABS: BF WBC COUNT 827640 /cmm (Not Established)
--- NOTE | 2020-03-19 17:48 | NUR ---
Pt bladder scanned with 1,400 ml in bladder. PT asked to use urinal and only put out [address] Akhtar notified and orders to place epps. 800 mL was put out right after epps was placed. Will continue to maintain epps and monitor pt.
[2020-03-19 19:42] VITALS: BP 124/71
[2020-03-19 22:52] VITALS: BP 164/92
[2020-03-20 03:19] VITALS: BP 140/78
[2020-03-20 06:26] LABS: CALCIUM 7.7 mg/dL (8.5-10.1); CREATININE 2.3 mg/dL (0.7-1.3); GFR 30.9; POTASSIUM 4.5 mmol/L (3.5-5.1)
[2020-03-20] MEDS: PIPERACILLIN/TAZOBACTAM 3.375 GM in IV NORMAL SALINE 50ML 50 ML IV SCH ×4 (06:28→23:05)
[2020-03-20 07:00] VITALS: BP 128/75
--- NOTE | 2020-03-20 07:50 | RAD ---
EXAM: CHEST ONE VIEW. HISTORY: Empyema, thoracentesis. COMPARISON: 03/19/2020. FINDINGS: A frontal view of the chest is obtained. A right basilar pleural drain is in place. The right pleural effusion is decreased. Residual opacities on the right may represent additional loculated components of the effusion and residual atelectasis/infiltrate. A focal airspace opacity is again noted in the left midlung. There is no pneumothorax. The heart is not enlarged. IMPRESSION: 1. Decreased right pleural effusion status post drainage. Residual opacities on the right may represent loculated components of the effusion or residual atelectasis/infiltrate. 2. Left midlung infiltrate versus mass. Electronically signed by: Rajendra Turner MD (03/20/2020 7:47 AM) [id number]
[2020-03-20] MEDS: INSULIN LISPRO 300 UNITS/3 ML VIAL. SQ SCH ×3 (08:00→16:16)
--- NOTE | 2020-03-20 08:50 | PDOC ---
PULMONARY PROGRESS NOTES DATE: 03/20/20 TIME: 08:45 Subjective purulent drainage fro ct output 1200 cc so far Vitals Vital Signs Date Time Temp Pulse Resp B/P (MAP) Pulse Ox O2 Delivery O2 Flow Rate FiO2 03/20/20 07:00 97.8 81 16 128/75 (92) 96 Room Air 97.8 General: Alert, No acute distress Lungs: Other (decrease bs right) Cardiovascular: S1 Abdomen: Soft Neuro Exam: Alert Extremities: No Edema Skin: Warm Labs Laboratory Tests Test 03/18/20 22:30 03/19/20 04:13 03/19/20 07:33 03/19/20 09:15 White Blood Count 8.5 x10^3/uL (4.0-11.0) Red Blood Count 2.66 x10^6/uL (4.30-5.70) Hemoglobin 7.5 g/dL (13.0-17.5) Hematocrit 23.5 % (39.0-53.0) Mean Corpuscular Volume 88 fL (79-100) Mean Corpuscular Hemoglobin 28 pg (25-35) Mean Corpuscular Hemoglobin Concent 32 g/dL (31-37) Red Cell Distribution Width 14.5 % (11.5-14.5) Platelet Count 549 x10^3/uL (140-400) Neutrophils (%) (Auto) 81 % (31-73) Lymphocytes (%) (Auto) 9 % (24-48) Monocytes (%) (Auto) 9 % (0-9) Eosinophils (%) (Auto) 0 % (0-3) Basophils (%) (Auto) 0 % (0-3) Neutrophils # (Auto) 6.9 x10^3/uL (1.8-7.7) Lymphocytes # (Auto) 0.8 x10^3/uL (1.0-4.8) Monocytes # (Auto) 0.7 x10^3/uL (0.0-1.1) Eosinophils # (Auto) 0.0 x10^3/uL (0.0-0.7) Basophils # (Auto) 0.0 x10^3/uL (0.0-0.2) D-Dimer (Melody) 7.23 ug/mlFEU (0.00-0.50) Sodium Level 128 mmol/L (136-145) 132 mmol/L (136-145) Potassium Level 5.3 mmol/L (3.5-5.1) 5.3 mmol/L (3.5-5.1) Chloride Level 97 mmol/L (98-107) 99 mmol/L (98-107) Carbon Dioxide Level 25 mmol/L (21-32) 25 mmol/L (21-32) Anion Gap 6 (6-14) 8 (6-14) Blood Urea Nitrogen 55 mg/dL (8-26) 49 mg/dL (8-26) Creatinine 3.4 mg/dL (0.7-1.3) 2.9 mg/dL (0.7-1.3) Estimated GFR (Cockcroft-Gault) 19.7 23.6 BUN/Creatinine Ratio 16 (6-20) Glucose Level 592 mg/dL (70-99) 540 mg/dL (70-99) Calcium Level 7.7 mg/dL (8.5-10.1) 7.4 mg/dL (8.5-10.1) Total Bilirubin 0.2 mg/dL (0.2-1.0) Aspartate Amino Transf (AST/SGOT) 11 U/L (15-37) Alanine Aminotransferase (ALT/SGPT) 7 U/L (16-63) Alkaline Phosphatase 145 U/L (46-116) Lactate Dehydrogenase 136 U/L (85-227) Troponin I Quantitative < 0.017 ng/mL (0.000-0.055) C-Reactive Protein, Quantitative 88.7 mg/L (0-3.3) BL-Uua-T-Type Natriuretic Peptide 1471 pg/mL (0-124) Total Protein 7.9 g/dL (6.4-8.2) Albumin 1.3 g/dL (3.4-5.0) 1.1 g/dL (3.4-5.0) Albumin/Globulin Ratio 0.2 (1.0-1.7) Lipase 206 U/L (73-393) Glucose (Fingerstick) 523 mg/dL (70-99) 515 mg/dL (70-99) Prothrombin Time 14.1 SEC (11.7-14.0) Prothromb Time International Ratio 1.1 (0.8-1.1) Activated Partial Thromboplast Time 39 SEC (24-38) Phosphorus Level 3.7 mg/dL (2.6-4.7) Creatine Kinase 43 U/L (39-308) Test 03/19/20 11:54 03/19/20 12:00 03/19/20 14:00 03/19/20 16:58 Glucose (Fingerstick) 415 mg/dL (70-99) 286 mg/dL (70-99) Body Fluid Source Pleural Body Fluid Color Straw Body Fluid Clarity Turbid Body Fluid pH 5.47 Body Fluid Nucleated Cells 696928 /cmm (Not Body Fluid Total RBCs Counted 374381 /cmm (Not Urine Collection Type Unknown Urine Color Yellow Urine Clarity Clear Urine pH 5.0 (<5.0-8.0) Urine Specific [place] 1.020 (1.000-1.030) Urine Protein 100 mg/dL (NEG-TRACE) Urine Glucose (UA) >=1000 mg/dL (NEG) Urine Ketones (Stick) Negative mg/dL (NEG) Urine Blood Negative (NEG) Urine Nitrite Negative (NEG) Urine Bilirubin Negative (NEG) Urine Urobilinogen Dipstick 1.0 mg/dL (0.2 mg/dL) Urine Leukocyte Esterase Negative (NEG) Urine RBC Rare /HPF (0-2) Urine WBC 0 /HPF (0-4) Urine Squamous Epithelial Cells None /LPF Urine Bacteria 0 /HPF (0-FEW) Urine Random Creatinine 49.3 mg/dL (Not Establ.) Urine Random Total Protein 204.0 mg/dL (Not Establ.) Urine Protein/Creatinine Ratio 4138 mg/g (0-200) Test 03/19/20 20:59 03/20/20 05:00 03/20/20 07:53 Glucose (Fingerstick) 251 mg/dL (70-99) 125 mg/dL (70-99) Sodium Level 140 mmol/L (136-145) Potassium Level 4.5 mmol/L (3.5-5.1) Chloride Level 107 mmol/L (98-107) Carbon Dioxide Level 26 mmol/L (21-32) Anion Gap 7 (6-14) Blood Urea Nitrogen 35 mg/dL (8-26) Creatinine 2.3 mg/dL (0.7-1.3) Estimated GFR (Cockcroft-Gault) 30.9 Glucose Level 172 mg/dL (70-99) Calcium Level 7.7 mg/dL (8.5-10.1) Iron Level 16 ug/dL (65-175) Total Iron Binding Capacity 87 ug/dL (250-450) Iron Saturation 18 % (15-34) Ferritin 240 ng/mL (26-388) Laboratory Tests Test 03/19/20 09:15 03/19/20 11:54 03/19/20 12:00 03/19/20 14:00 Prothrombin Time 14.1 SEC (11.7-14.0) Prothromb Time International Ratio 1.1 (0.8-1.1) Activated Partial Thromboplast Time 39 SEC (24-38) Sodium Level 132 mmol/L (136-145) Potassium Level 5.3 mmol/L (3.5-5.1) Chloride Level 99 mmol/L (98-107) Carbon Dioxide Level 25 mmol/L (21-32) Anion Gap 8 (6-14) Blood Urea Nitrogen 49 mg/dL (8-26) Creatinine 2.9 mg/dL (0.7-1.3) Estimated GFR (Cockcroft-Gault) 23.6 Glucose Level 540 mg/dL (70-99) Calcium Level 7.4 mg/dL (8.5-10.1) Phosphorus Level 3.7 mg/dL (2.6-4.7) Creatine Kinase 43 U/L (39-308) Albumin 1.1 g/dL (3.4-5.0) Glucose (Fingerstick) 415 mg/dL (70-99) Body Fluid Source Pleural Body Fluid Color Straw Body Fluid Clarity Turbid Body Fluid pH 5.47 Body Fluid Nucleated Cells 560862 /cmm (Not Body Fluid Total RBCs Counted 764229 /cmm (Not Urine Collection Type Unknown Urine Color Yellow Urine Clarity Clear Urine pH 5.0 (<5.0-8.0) Urine Specific [place] 1.020 (1.000-1.030) Urine Protein 100 mg/dL (NEG-TRACE) Urine Glucose (UA) >=1000 mg/dL (NEG) Urine Ketones (Stick) Negative mg/dL (NEG) Urine Blood Negative (NEG) Urine Nitrite Negative (NEG) Urine Bilirubin Negative (NEG) Urine Urobilinogen Dipstick 1.0 mg/dL (0.2 mg/dL) Urine Leukocyte Esterase Negative (NEG) Urine RBC Rare /HPF (0-2) Urine WBC 0 /HPF (0-4) Urine Squamous Epithelial Cells None /LPF Urine Bacteria 0 /HPF (0-FEW) Urine Random Creatinine 49.3 mg/dL (Not Establ.) Urine Random Total Protein 204.0 mg/dL (Not Establ.) Urine Protein/Creatinine Ratio 4138 mg/g (0-200) Test 03/19/20 16:58 03/19/20 20:59 03/20/20 05:00 03/20/20 07:53 Glucose (Fingerstick) 286 mg/dL (70-99) 251 mg/dL (70-99) 125 mg/dL (70-99) Sodium Level 140 mmol/L (136-145) Potassium Level 4.5 mmol/L (3.5-5.1) Chloride Level 107 mmol/L (98-107) Carbon Dioxide Level 26 mmol/L (21-32) Anion Gap 7 (6-14) Blood Urea Nitrogen 35 mg/dL (8-26) Creatinine 2.3 mg/dL (0.7-1.3) Estimated GFR (Cockcroft-Gault) 30.9 Glucose Level 172 mg/dL (70-99) Calcium Level 7.7 mg/dL (8.5-10.1) Iron Level 16 ug/dL (65-175) Total Iron Binding Capacity 87 ug/dL (250-450) Iron Saturation 18 % (15-34) Ferritin 240 ng/mL (26-388) Medications Active Scripts Medications Dose Route/Sig Max Daily Dose Days Date Category Oxycodone Hcl Immed.release (Oxycodone Hcl) 5 Mg Tablet 5 Mg PO PRN Q6HRS PRN 02/26/17 Rx Glucophage (Metformin Hcl) 1,000 Mg Tablet 1,000 Mg PO BIDWMEALS 30 02/26/17 Rx Amaryl (Glimepiride) 2 Mg Tablet 2 Mg PO DAILY 30 02/26/17 Rx Comments cxr 03/20 improving infiltrates right Impression . 1. Abnormal CT chest with multi-loculated right sided pleural-effusions along with mediastinal and right hilar adenopathy and narrowing of the right mainstem bronchus. He has another pocket of density in the left lung as well. The patient has lost weight, loss of appetite and came in with chest wall pain. Differential diagnosis would include: A. Empyema with reactive adenopathy. B. less likely malignancy. C. less likely TB pleuritis. 2. Acute kidney injury. 3. Hyponatremia. 4. Anemia of chronic disease. 5. Hyperglycemia. Plan . RECOMMENDATIONS: 1. s/p right chest tubes CT-guided . vita pus . PH 5.4 2. f/u cxr. May need f/u CT chest in few days 3. We will need probably tPA via chest tube. 4. Renal recommendations. 5. Monitor sodium. 6. TB QuantiFERON test. 7. D-dimer is high, which could be related to an empyema or malignancy. Hold lovenox as he may need TPA Get v. Dopplers. 8. Monitoring of glucose per PCP. 9. Discussed with CLAYTON JONES MD Mar 20, 2020 08:50
[2020-03-20] MEDS: INSULIN GLARGINE SYRINGE. SQ SCH ×2 (09:22→21:32)
[2020-03-20] MEDS: IV NORMAL SALINE 1000ML BAG 1,000 ML IV SCH (09:23)
[2020-03-20 10:50] VITALS: BP 110/65
--- NOTE | 2020-03-20 11:51 | PDOC ---
DATE OF SERVICE DATE: 03/20/20 TIME: 11:51 SUBJECTIVE ROS Looking and feeling better, Dr. Sears in the room OBJECTIVE Vital Signs Vital Signs Date Time Temp Pulse Resp B/P (MAP) Pulse Ox O2 Delivery O2 Flow Rate FiO2 03/20/20 10:50 97.8 96 16 110/65 (80) 93 Room Air 97.8 I & 0 Intake and Output 03/20/20 07:00 Intake Total 2070 ml Output Total 3600 ml Balance -1530 ml Intake Oral 970 ml IV Total 1100 ml Output Urine Total 2400 ml Chest Tube Drainage Total 1200 ml PHYSICAL EXAM Physical Exam GEN.: no apparent distress. HEENT: OM dry NECK: Supple. LUNGS: Diminshed at bases, Non labored HEART: RRR, S1, S2 present. ABDOMEN: Soft, nontender. EXTREMITIES: Without any cyanosis. first and second great toe amputation, No LE edema NEUROLOGIC: Normal speech, normal tone PSYCHIATRIC: Normal affect, normal mood. SKIN: No rash No CVA or SP tenderness, Epps + DIAGNOSIS/ASSESSMENT Assessment & Plan ARSLAN - Suspect Vasomotor 2/2 dehydration, Urinary Retention Renal function improving I had ordered Bladder scan yesterday - had retention 1300 mls, Epps Placed with good UOP UA unremarkable except priteinuria and Glucosuria, , US Unremarkable (done after epps placement) Continue IVF, strict I/O, avoid nephrotoxins CKD Stage 3 - Baseline Cr 1.5-1.6 in 2016 per [facility] records No interval labs available Presumably due to Diabetes Nephrosclerosis Proteinuria- Nephrotic - likely due to DM HyperKalemia- Resolved Anemia -Tsats low, further frey per primary Multiloculated right-sided pleural effusion- s/p right chest tubes CT-guided . vita pus . PH 5.4 TB QuantiFERON test pending , D-dimer high, r/o empyema or malignancy Wt loss - r/o Infection vs Malignancy Mediastinal and right hilar adenopathy Hyponatremia- PsudohypoNa at presentation , Corrected for Glucose Na normal Na Normal today Diabetes mellitus type 2 uncontrolled- BS significantly high, was on metformin per home med list Severe Hypoalbuminemia HTN- stable COMMENT/RELEVANT DATA Meds Current Medications Medications (Trade) Dose Ordered Sig/Sd Start Time Stop Time Status Last Admin Dose Admin Acetaminophen (Tylenol) 650 mg PRN Q4HRS PRN 03/19/20 08:30 Albuterol Sulfate (Ventolin Neb Soln) 2.5 mg PRN Q4HRS PRN 03/19/20 08:30 Dextrose (Dextrose 50%-Water Syringe) 12.5 gm PRN Q15MIN PRN 03/19/20 08:30 Diphenhydramine HCl (Benadryl) 25 mg PRN Q4HRS PRN 03/19/20 08:30 Enoxaparin Sodium (Lovenox 30mg Syringe) 30 mg Q24H 03/19/20 09:00 03/20/20 08:51 DC Enoxaparin Sodium (Lovenox 40mg Syringe) 40 mg Q24H 03/19/20 08:30 UNV Guaifenesin (Robitussin) 200 mg PRN Q4HRS PRN 03/19/20 08:30 Insulin Glargine (Lantus Syringe) 10 unit BID 03/19/20 09:00 03/20/20 09:22 10 UNIT Insulin Human Lispro (HumaLOG) 5 units 1X ONCE 03/19/20 13:00 03/19/20 13:01 DC 03/19/20 12:51 5 UNITS Insulin Human Regular (HumuLIN R VIAL) 8 unit 1X ONCE 03/19/20 04:15 03/19/20 04:35 DC 03/19/20 04:42 8 UNIT Lidocaine HCl (Buffered Lidocaine 1%) 12 ml 1X ONCE 03/19/20 11:00 03/19/20 11:01 DC Lidocaine HCl (Lidocaine 1% 20ml Vial) 20 ml STK-MED ONCE 03/19/20 10:53 03/19/20 10:53 DC Lorazepam (Ativan) 0.5 mg PRN Q4HRS PRN 03/19/20 08:30 Ondansetron HCl (Zofran) 4 mg PRN Q4HRS PRN 03/19/20 08:30 Oxycodone HCl (Roxicodone) 5 mg PRN Q6HRS PRN 03/19/20 08:30 03/19/20 22:04 5 MG Piperacillin Sod/ Tazobactam Sod 3.375 gm/Sodium Chloride 50 ml @ 100 mls/hr Q6HRS 03/19/20 12:00 03/20/20 06:28 100 MLS/HR Sodium Chloride 1,000 ml @ 100 mls/hr Q10H 03/19/20 08:22 03/20/20 09:23 100 MLS/HR Zolpidem Tartrate (Ambien) 5 mg PRN QHS PRN 03/19/20 08:30 Lab Laboratory Tests Test 03/19/20 11:54 03/19/20 12:00 03/19/20 14:00 03/19/20 16:58 Glucose (Fingerstick) 415 mg/dL (70-99) 286 mg/dL (70-99) Body Fluid Source Pleural Body Fluid Color Straw Body Fluid Clarity Turbid Body Fluid pH 5.47 Body Fluid Nucleated Cells 775006 /cmm (Not Body Fluid Total RBCs Counted 843894 /cmm (Not Urine Collection Type Unknown Urine Color Yellow Urine Clarity Clear Urine pH 5.0 (<5.0-8.0) Urine Specific [place] 1.020 (1.000-1.030) Urine Protein 100 mg/dL (NEG-TRACE) Urine Glucose (UA) >=1000 mg/dL (NEG) Urine Ketones (Stick) Negative mg/dL (NEG) Urine Blood Negative (NEG) Urine Nitrite Negative (NEG) Urine Bilirubin Negative (NEG) Urine Urobilinogen Dipstick 1.0 mg/dL (0.2 mg/dL) Urine Leukocyte Esterase Negative (NEG) Urine RBC Rare /HPF (0-2) Urine WBC 0 /HPF (0-4) Urine Squamous Epithelial Cells None /LPF Urine Bacteria 0 /HPF (0-FEW) Urine Random Creatinine 49.3 mg/dL (Not Establ.) Urine Random Total Protein 204.0 mg/dL (Not Establ.) Urine Protein/Creatinine Ratio 4138 mg/g (0-200) Test 03/19/20 20:59 03/20/20 05:00 03/20/20 07:53 03/20/20 11:34 Glucose (Fingerstick) 251 mg/dL (70-99) 125 mg/dL (70-99) 157 mg/dL (70-99) Sodium Level 140 mmol/L (136-145) Potassium Level 4.5 mmol/L (3.5-5.1) Chloride Level 107 mmol/L (98-107) Carbon Dioxide Level 26 mmol/L (21-32) Anion Gap 7 (6-14) Blood Urea Nitrogen 35 mg/dL (8-26) Creatinine 2.3 mg/dL (0.7-1.3) Estimated GFR (Cockcroft-Gault) 30.9 Glucose Level 172 mg/dL (70-99) Calcium Level 7.7 mg/dL (8.5-10.1) Iron Level 16 ug/dL (65-175) Total Iron Binding Capacity 87 ug/dL (250-450) Iron Saturation 18 % (15-34) Ferritin 240 ng/mL (26-388) Results All relevant outside records, renal labs, imaging studies, telemetry/EKG's were reviewed. Justicifation of Admission Dx: Justifications for Admission: Justification of Admission Dx: Yes CEDRIC SLATER MD Mar 20, 2020 11:51
[2020-03-20 15:01] VITALS: BP 131/73
--- NOTE | 2020-03-20 15:40 | PDOC ---
PROGRESS NOTES Date of Service: DATE: 03/20/20 TIME: 15:38 Chief Complaint Chief Complaint Assessment/Plan Multiloculated right-sided pleural effusion Mediastinal and right hilar adenopathy Hyponatremia Acute renal failure secondary to most likely vasomotor nephropathy and post renal component given urinayr retention Diabetes mellitus type 2 uncontrolled Anemia of chronic disease Plan tube placed and draining purulent material will probably instill tpa as per furniture sales consultant. Broad-spectrum antibiotics follow QuantiFERON test Nephrology consultation appreciated D-dimer is high we will continue to monitor his respiratory status unlikely to have benefit from a VQ scan Insulin therapy for better glycemic control Further recommendations based on the clinical course History of Present Illness History of Present Illness No acute events reported overnight, case discussed with nursing staff patient in no acute distress no complaints during my visit Vitals Vitals Vital Signs Date Time Temp Pulse Resp B/P (MAP) Pulse Ox O2 Delivery O2 Flow Rate FiO2 03/20/20 15:01 98.4 82 18 131/73 (92) 99 Room Air 98.4 Physical Exam Lungs: Other (decrease bs right) Labs LABS Laboratory Tests Test 03/19/20 16:58 03/19/20 20:59 03/20/20 05:00 03/20/20 07:53 Glucose (Fingerstick) 286 mg/dL (70-99) 251 mg/dL (70-99) 125 mg/dL (70-99) Sodium Level 140 mmol/L (136-145) Potassium Level 4.5 mmol/L (3.5-5.1) Chloride Level 107 mmol/L (98-107) Carbon Dioxide Level 26 mmol/L (21-32) Anion Gap 7 (6-14) Blood Urea Nitrogen 35 mg/dL (8-26) Creatinine 2.3 mg/dL (0.7-1.3) Estimated GFR (Cockcroft-Gault) 30.9 Glucose Level 172 mg/dL (70-99) Calcium Level 7.7 mg/dL (8.5-10.1) Iron Level 16 ug/dL (65-175) Total Iron Binding Capacity 87 ug/dL (250-450) Iron Saturation 18 % (15-34) Ferritin 240 ng/mL (26-388) Test 03/20/20 11:34 Glucose (Fingerstick) 157 mg/dL (70-99) Comment Review of Relevant I have reviewed the following items ammon (where applicable) has been applied. Labs Laboratory Tests Test 03/18/20 22:30 03/19/20 04:13 03/19/20 07:33 03/19/20 09:15 White Blood Count 8.5 x10^3/uL (4.0-11.0) Red Blood Count 2.66 x10^6/uL (4.30-5.70) Hemoglobin 7.5 g/dL (13.0-17.5) Hematocrit 23.5 % (39.0-53.0) Mean Corpuscular Volume 88 fL (79-100) Mean Corpuscular Hemoglobin 28 pg (25-35) Mean Corpuscular Hemoglobin Concent 32 g/dL (31-37) Red Cell Distribution Width 14.5 % (11.5-14.5) Platelet Count 549 x10^3/uL (140-400) Neutrophils (%) (Auto) 81 % (31-73) Lymphocytes (%) (Auto) 9 % (24-48) Monocytes (%) (Auto) 9 % (0-9) Eosinophils (%) (Auto) 0 % (0-3) Basophils (%) (Auto) 0 % (0-3) Neutrophils # (Auto) 6.9 x10^3/uL (1.8-7.7) Lymphocytes # (Auto) 0.8 x10^3/uL (1.0-4.8) Monocytes # (Auto) 0.7 x10^3/uL (0.0-1.1) Eosinophils # (Auto) 0.0 x10^3/uL (0.0-0.7) Basophils # (Auto) 0.0 x10^3/uL (0.0-0.2) D-Dimer (Melody) 7.23 ug/mlFEU (0.00-0.50) Sodium Level 128 mmol/L (136-145) 132 mmol/L (136-145) Potassium Level 5.3 mmol/L (3.5-5.1) 5.3 mmol/L (3.5-5.1) Chloride Level 97 mmol/L (98-107) 99 mmol/L (98-107) Carbon Dioxide Level 25 mmol/L (21-32) 25 mmol/L (21-32) Anion Gap 6 (6-14) 8 (6-14) Blood Urea Nitrogen 55 mg/dL (8-26) 49 mg/dL (8-26) Creatinine 3.4 mg/dL (0.7-1.3) 2.9 mg/dL (0.7-1.3) Estimated GFR (Cockcroft-Gault) 19.7 23.6 BUN/Creatinine Ratio 16 (6-20) Glucose Level 592 mg/dL (70-99) 540 mg/dL (70-99) Calcium Level 7.7 mg/dL (8.5-10.1) 7.4 mg/dL (8.5-10.1) Total Bilirubin 0.2 mg/dL (0.2-1.0) Aspartate Amino Transf (AST/SGOT) 11 U/L (15-37) Alanine Aminotransferase (ALT/SGPT) 7 U/L (16-63) Alkaline Phosphatase 145 U/L (46-116) Lactate Dehydrogenase 136 U/L (85-227) Troponin I Quantitative < 0.017 ng/mL (0.000-0.055) C-Reactive Protein, Quantitative 88.7 mg/L (0-3.3) MW-Cer-X-Type Natriuretic Peptide 1471 pg/mL (0-124) Total Protein 7.9 g/dL (6.4-8.2) Albumin 1.3 g/dL (3.4-5.0) 1.1 g/dL (3.4-5.0) Albumin/Globulin Ratio 0.2 (1.0-1.7) Lipase 206 U/L (73-393) Glucose (Fingerstick) 523 mg/dL (70-99) 515 mg/dL (70-99) Prothrombin Time 14.1 SEC (11.7-14.0) Prothromb Time International Ratio 1.1 (0.8-1.1) Activated Partial Thromboplast Time 39 SEC (24-38) Phosphorus Level 3.7 mg/dL (2.6-4.7) Creatine Kinase 43 U/L (39-308) Test 03/19/20 11:54 03/19/20 12:00 03/19/20 14:00 03/19/20 16:58 Glucose (Fingerstick) 415 mg/dL (70-99) 286 mg/dL (70-99) Body Fluid Source Pleural Body Fluid Color Straw Body Fluid Clarity Turbid Body Fluid pH 5.47 Body Fluid Nucleated Cells 206851 /cmm (Not Body Fluid Total RBCs Counted 120952 /cmm (Not Urine Collection Type Unknown Urine Color Yellow Urine Clarity Clear Urine pH 5.0 (<5.0-8.0) Urine Specific [place] 1.020 (1.000-1.030) Urine Protein 100 mg/dL (NEG-TRACE) Urine Glucose (UA) >=1000 mg/dL (NEG) Urine Ketones (Stick) Negative mg/dL (NEG) Urine Blood Negative (NEG) Urine Nitrite Negative (NEG) Urine Bilirubin Negative (NEG) Urine Urobilinogen Dipstick 1.0 mg/dL (0.2 mg/dL) Urine Leukocyte Esterase Negative (NEG) Urine RBC Rare /HPF (0-2) Urine WBC 0 /HPF (0-4) Urine Squamous Epithelial Cells None /LPF Urine Bacteria 0 /HPF (0-FEW) Urine Random Creatinine 49.3 mg/dL (Not Establ.) Urine Random Total Protein 204.0 mg/dL (Not Establ.) Urine Protein/Creatinine Ratio 4138 mg/g (0-200) Test 03/19/20 20:59 03/20/20 05:00 03/20/20 07:53 03/20/20 11:34 Glucose (Fingerstick) 251 mg/dL (70-99) 125 mg/dL (70-99) 157 mg/dL (70-99) Sodium Level 140 mmol/L (136-145) Potassium Level 4.5 mmol/L (3.5-5.1) Chloride Level 107 mmol/L (98-107) Carbon Dioxide Level 26 mmol/L (21-32) Anion Gap 7 (6-14) Blood Urea Nitrogen 35 mg/dL (8-26) Creatinine 2.3 mg/dL (0.7-1.3) Estimated GFR (Cockcroft-Gault) 30.9 Glucose Level 172 mg/dL (70-99) Calcium Level 7.7 mg/dL (8.5-10.1) Iron Level 16 ug/dL (65-175) Total Iron Binding Capacity 87 ug/dL (250-450) Iron Saturation 18 % (15-34) Ferritin 240 ng/mL (26-388) Laboratory Tests Test 03/19/20 16:58 03/19/20 20:59 03/20/20 05:00 03/20/20 07:53 Glucose (Fingerstick) 286 mg/dL (70-99) 251 mg/dL (70-99) 125 mg/dL (70-99) Sodium Level 140 mmol/L (136-145) Potassium Level 4.5 mmol/L (3.5-5.1) Chloride Level 107 mmol/L (98-107) Carbon Dioxide Level 26 mmol/L (21-32) Anion Gap 7 (6-14) Blood Urea Nitrogen 35 mg/dL (8-26) Creatinine 2.3 mg/dL (0.7-1.3) Estimated GFR (Cockcroft-Gault) 30.9 Glucose Level 172 mg/dL (70-99) Calcium Level 7.7 mg/dL (8.5-10.1) Iron Level 16 ug/dL (65-175) Total Iron Binding Capacity 87 ug/dL (250-450) Iron Saturation 18 % (15-34) Ferritin 240 ng/mL (26-388) Test 03/20/20 11:34 Glucose (Fingerstick) 157 mg/dL (70-99) Microbiology 03/19/20 Gram Stain - Final, Resulted 03/19/20 Aerobic and Anaerobic Culture, Resulted Pending 03/19/20 Blood Culture - Preliminary, Resulted NO GROWTH AFTER 1 DAY Medications Current Medications Sodium Chloride 1,000 ml @ 1,000 mls/hr 1X ONCE IV Last administered on 03/18/20at 23:48; Start 03/18/20 at 23:45; Stop 03/19/20 at 00:44; Status DC Piperacillin Sod/ Tazobactam Sod 3.375 gm/Sodium Chloride 50 ml @ 100 mls/hr 1X ONCE IV Last administered on 03/19/20at 02:56; Start 03/19/20 at 02:30; Stop 03/19/20 at 02:59; Status DC Insulin Human Regular (HumuLIN R VIAL) 8 unit 1X ONCE IV Last administered on 03/19/20at 04:42; Start 03/19/20 at 04:15; Stop 03/19/20 at 04:35; Status DC Sodium Chloride 1,000 ml @ 100 mls/hr Q10H IV Last administered on 03/20/20at 09:23; Start 03/19/20 at 08:22; Stop 03/20/20 at 13:35; Status DC Ondansetron HCl (Zofran) 4 mg PRN Q4HRS PRN IV NAUSEA/VOMITING; Start 03/19/20 at 08:30 Zolpidem Tartrate (Ambien) 5 mg PRN QHS PRN PO INSOMNIA; Start 03/19/20 at 08:30 Acetaminophen (Tylenol) 650 mg PRN Q4HRS PRN PO TEMP OVER 100.4F OR MILD PAIN; Start 03/19/20 at 08:30 Diphenhydramine HCl (Benadryl) 25 mg PRN Q4HRS PRN IVP ITCHING; Start 03/19/20 at 08:30 Albuterol Sulfate (Ventolin Neb Soln) 2.5 mg PRN Q4HRS PRN NEB SHORTNESS OF BREATH; Start 03/19/20 at 08:30 Guaifenesin (Robitussin) 200 mg PRN Q4HRS PRN PO COUGH; Start 03/19/20 at 08:30 Lorazepam (Ativan) 0.5 mg PRN Q4HRS PRN PO ANXIETY / AGITATION; Start 03/19/20 at 08:30 Enoxaparin Sodium (Lovenox 40mg Syringe) 40 mg Q24H SQ ; Start 03/19/20 at 08:30; Status UNV Oxycodone HCl (Roxicodone) 5 mg PRN Q6HRS PRN PO MODERATE-SEVERE PAIN Last administered on 03/19/20at 22:04; Start 03/19/20 at 08:30 Piperacillin Sod/ Tazobactam Sod 3.375 gm/Sodium Chloride 50 ml @ 100 mls/hr Q6HRS IV Last administered on 03/20/20at 12:13; Start 03/19/20 at 12:00 Insulin Human Lispro (HumaLOG) 0-9 UNITS TIDWMEALS SQ ; Start 03/19/20 at 12:00; Stop 03/19/20 at 08:36; Status DC Dextrose (Dextrose 50%-Water Syringe) 12.5 gm PRN Q15MIN PRN IV SEE COMMENTS; Start 03/19/20 at 08:30 Insulin Glargine (Lantus Syringe) 10 unit BID SQ Last administered on 03/20/20at 09:22; Start 03/19/20 at 09:00 Insulin Human Lispro (HumaLOG) 0-9 UNITS TIDWMEALS SQ Last administered on 03/20/20at 12:16; Start 03/19/20 at 08:45 Enoxaparin Sodium (Lovenox 30mg Syringe) 30 mg Q24H SQ ; Start 03/19/20 at 09:00; Stop 03/20/20 at 08:51; Status DC Lidocaine HCl (Buffered Lidocaine 1%) 12 ml 1X ONCE INJ ; Start 03/19/20 at 11:00; Stop 03/19/20 at 11:01; Status DC Lidocaine HCl (Lidocaine 1% 20ml Vial) 20 ml STK-MED ONCE .ROUTE ; Start 03/19/20 at 10:53; Stop 03/19/20 at 10:53; Status DC Insulin Human Lispro (HumaLOG) 5 units 1X ONCE SQ Last administered on 03/19/20at 12:51; Start 03/19/20 at 13:00; Stop 03/19/20 at 13:01; Status DC Active Scripts Active Oxycodone Hcl Immed.release (Oxycodone Hcl) 5 Mg Tablet 5 Mg PO PRN Q6HRS PRN Glucophage (Metformin Hcl) 1,000 Mg Tablet 1,000 Mg PO BIDWMEALS 30 Days Amaryl (Glimepiride) 2 Mg Tablet 2 Mg PO DAILY 30 Days Vitals/I & O Vital Sign - Last 24 Hours 03/19/20 03/19/20 03/19/20 03/19/20 19:42 20:20 22:04 22:52 Temp 97.8 98.0 97.8 98.0 Pulse 89 91 Resp 18 18 18 B/P (MAP) 124/71 (88) 164/92 (116) Pulse Ox 94 94 95 O2 Delivery Room Air Room Air Room Air Room Air 03/19/20 03/20/20 03/20/20 03/20/20 23:04 03:19 07:00 07:50 Temp 98.1 97.8 98.1 97.8 Pulse 82 81 Resp 18 18 16 B/P (MAP) 140/78 (98) 128/75 (92) Pulse Ox 95 95 96 O2 Delivery Room Air Room Air Room Air Room Air 03/20/20 03/20/20 10:50 15:01 Temp 97.8 98.4 97.8 98.4 Pulse 96 82 Resp 16 18 B/P (MAP) 110/65 (80) 131/73 (92) Pulse Ox 93 99 O2 Delivery Room Air Room Air Intake and Output 03/19/20 03/19/20 03/20/20 15:00 23:00 07:00 Intake Total 240 ml 730 ml 1100 ml Output Total 2500 ml 1100 ml Balance 240 ml -1770 ml 0 ml Justicifation of Admission Dx: Justifications for Admission: Justification of Admission Dx: Yes BEVERLY VALERIO MD Mar 20, 2020 15:40
[2020-03-20 19:24] VITALS: BP 136/79
[2020-03-20 22:33] VITALS: BP 140/79
[2020-03-21 03:09] VITALS: BP 152/87
[2020-03-21 04:15] LABS: CALCIUM 7.2 mg/dL (8.5-10.1); CREATININE 2.3 mg/dL (0.7-1.3); GFR 30.9; POTASSIUM 4.9 mmol/L (3.5-5.1)
[2020-03-21] MEDS: PIPERACILLIN/TAZOBACTAM 3.375 GM in IV NORMAL SALINE 50ML 50 ML IV SCH ×4 (05:06→23:03)
[2020-03-21 07:00] VITALS: BP 160/88
[2020-03-21] MEDS: INSULIN LISPRO 300 UNITS/3 ML VIAL. SQ SCH ×3 (08:00→17:00)
[2020-03-21] MEDS: INSULIN GLARGINE SYRINGE. SQ SCH ×2 (09:15→21:00)
--- NOTE | 2020-03-21 09:54 | RAD ---
INDICATION: Reason: empyema / Spl. Instructions: / History: COMPARISON: March 20, 2020 FINDINGS: Single view of chest obtained. Cardiac silhouette is similar to prior and mildly prominent in size. Dense opacity in the left mid lung as well as the right mid to lower lung again seen with slight improvement in aeration at the right lung base compared to prior. Drain again seen projecting over the right upper quadrant. IMPRESSION: * Repeat demonstration of multifocal opacities throughout the right lung with slight improvement in aeration of right lung base compared to prior. Could be from the patient's previously identified loculated fluid which could be from empyema as well as adjacent airspace consolidation. The left lung opacity is again seen as well. Electronically signed by: Michael Noriega MD (03/21/2020 9:51 AM) [id number]
[2020-03-21] MEDS ORDERED: FUROSEMIDE 20 MG/2 ML VIAL. IVP ONE (10:30)
[2020-03-21] MEDS ORDERED: ALBUMIN HUMAN 25% 100 ML IV ONE (10:30)
--- NOTE | 2020-03-21 10:51 | PDOC ---
PULMONARY PROGRESS NOTES DATE: 03/21/20 TIME: 10:50 Subjective purulent drainage fro ct output 1200 cc initially, not much in 24 hrs Vitals Vital Signs Date Time Temp Pulse Resp B/P (MAP) Pulse Ox O2 Delivery O2 Flow Rate FiO2 03/21/20 08:00 Room Air 03/21/20 07:00 97.8 83 16 160/88 (112) 97 97.8 General: Alert, No acute distress Lungs: Other (decrease bs right) Cardiovascular: S1 Abdomen: Soft Neuro Exam: Alert Extremities: No Edema Skin: Warm Labs Laboratory Tests Test 03/19/20 11:54 03/19/20 12:00 03/19/20 14:00 03/19/20 16:58 Glucose (Fingerstick) 415 mg/dL (70-99) 286 mg/dL (70-99) Body Fluid Source Pleural Body Fluid Color Straw Body Fluid Clarity Turbid Body Fluid pH 5.47 Body Fluid Nucleated Cells 258938 /cmm (Not Body Fluid Total RBCs Counted 912193 /cmm (Not Urine Collection Type Unknown Urine Color Yellow Urine Clarity Clear Urine pH 5.0 (<5.0-8.0) Urine Specific [place] 1.020 (1.000-1.030) Urine Protein 100 mg/dL (NEG-TRACE) Urine Glucose (UA) >=1000 mg/dL (NEG) Urine Ketones (Stick) Negative mg/dL (NEG) Urine Blood Negative (NEG) Urine Nitrite Negative (NEG) Urine Bilirubin Negative (NEG) Urine Urobilinogen Dipstick 1.0 mg/dL (0.2 mg/dL) Urine Leukocyte Esterase Negative (NEG) Urine RBC Rare /HPF (0-2) Urine WBC 0 /HPF (0-4) Urine Squamous Epithelial Cells None /LPF Urine Bacteria 0 /HPF (0-FEW) Urine Random Creatinine 49.3 mg/dL (Not Establ.) Urine Random Total Protein 204.0 mg/dL (Not Establ.) Urine Protein/Creatinine Ratio 4138 mg/g (0-200) Test 03/19/20 20:59 03/20/20 05:00 03/20/20 07:53 03/20/20 11:34 Glucose (Fingerstick) 251 mg/dL (70-99) 125 mg/dL (70-99) 157 mg/dL (70-99) Sodium Level 140 mmol/L (136-145) Potassium Level 4.5 mmol/L (3.5-5.1) Chloride Level 107 mmol/L (98-107) Carbon Dioxide Level 26 mmol/L (21-32) Anion Gap 7 (6-14) Blood Urea Nitrogen 35 mg/dL (8-26) Creatinine 2.3 mg/dL (0.7-1.3) Estimated GFR (Cockcroft-Gault) 30.9 Glucose Level 172 mg/dL (70-99) Calcium Level 7.7 mg/dL (8.5-10.1) Iron Level 16 ug/dL (65-175) Total Iron Binding Capacity 87 ug/dL (250-450) Iron Saturation 18 % (15-34) Ferritin 240 ng/mL (26-388) Test 03/20/20 15:59 03/20/20 20:39 03/21/20 02:43 03/21/20 07:19 Glucose (Fingerstick) 143 mg/dL (70-99) 114 mg/dL (70-99) 100 mg/dL (70-99) Sodium Level 140 mmol/L (136-145) Potassium Level 4.9 mmol/L (3.5-5.1) Chloride Level 109 mmol/L (98-107) Carbon Dioxide Level 27 mmol/L (21-32) Anion Gap 4 (6-14) Blood Urea Nitrogen 27 mg/dL (8-26) Creatinine 2.3 mg/dL (0.7-1.3) Estimated GFR (Cockcroft-Gault) 30.9 Glucose Level 129 mg/dL (70-99) Calcium Level 7.2 mg/dL (8.5-10.1) Laboratory Tests Test 03/20/20 11:34 03/20/20 15:59 03/20/20 20:39 03/21/20 02:43 Glucose (Fingerstick) 157 mg/dL (70-99) 143 mg/dL (70-99) 114 mg/dL (70-99) Sodium Level 140 mmol/L (136-145) Potassium Level 4.9 mmol/L (3.5-5.1) Chloride Level 109 mmol/L (98-107) Carbon Dioxide Level 27 mmol/L (21-32) Anion Gap 4 (6-14) Blood Urea Nitrogen 27 mg/dL (8-26) Creatinine 2.3 mg/dL (0.7-1.3) Estimated GFR (Cockcroft-Gault) 30.9 Glucose Level 129 mg/dL (70-99) Calcium Level 7.2 mg/dL (8.5-10.1) Test 03/21/20 07:19 Glucose (Fingerstick) 100 mg/dL (70-99) Medications Active Scripts Medications Dose Route/Sig Max Daily Dose Days Date Category Oxycodone Hcl Immed.release (Oxycodone Hcl) 5 Mg Tablet 5 Mg PO PRN Q6HRS PRN 02/26/17 Rx Glucophage (Metformin Hcl) 1,000 Mg Tablet 1,000 Mg PO BIDWMEALS 30 02/26/17 Rx Amaryl (Glimepiride) 2 Mg Tablet 2 Mg PO DAILY 30 02/26/17 Rx Comments cxr 03/21 improving infiltrates right Impression . 1. Abnormal CT chest with multi-loculated right sided pleural-effusions along with mediastinal and right hilar adenopathy and narrowing of the right mainstem bronchus. He has another pocket of density in the left lung as well. The patient has lost weight, loss of appetite and came in with chest wall pain. Differential diagnosis would include: A. Empyema with reactive adenopathy. B. less likely malignancy. C. less likely TB pleuritis. 2. Acute kidney injury. 3. Hyponatremia. 4. Anemia of chronic disease. 5. Hyperglycemia. Plan . RECOMMENDATIONS: 1. s/p right chest tubes CT-guided . vita pus . PH 5.4 2. f/u cxr.improving. May need f/u CT chest today 3. We will need probably tPA via chest tube. 4. Renal recommendations. 5. Monitor sodium. 6. TB QuantiFERON test. 7. D-dimer is high, which could be related to an empyema or malignancy. Hold lovenox as he may need TPA Get v. Dopplers. 8. Monitoring of glucose per PCP. 9. Discussed with RN/CLAYTON BENTLEY MD Mar 21, 2020 10:51
[2020-03-21 11:00] VITALS: BP 145/87
--- NOTE | 2020-03-21 11:49 | NUR ---
SS following for discharge planning. SS reviewed pt chart and discussed with pt RN. Pt is from home and is currently on room air. Pt on IV Zsyn. Pt is self pay. Pt has chest tube and epps. Pt has no urine output at this time. Discharge plan is to home when medically ready. SS will continue to follow for discharge planning.
--- NOTE | 2020-03-21 12:36 | PDOC ---
Renal-Progress Notes Subjective Notes Notes SITTING UP, NO COMPLAINTS VOICED, NOT EATING OR DRINKING MUCH History of Present Illness Hx of present illness STABLE Vitals Vitals Vital Signs Date Time Temp Pulse Resp B/P (MAP) Pulse Ox O2 Delivery O2 Flow Rate FiO2 03/21/20 11:00 97.5 82 16 145/87 (106) 96 Room Air 97.5 Weight Weight [ ] I.O. Intake and Output Intake and Output 03/21/20 07:00 Intake Total 680 ml Output Total 1155 ml Balance -475 ml Intake Oral 580 ml IV Total 100 ml Output Urine Total 1000 ml Chest Tube Drainage Total 155 ml Labs Labs Laboratory Tests Test 03/20/20 15:59 03/20/20 20:39 03/21/20 02:43 03/21/20 07:19 Glucose (Fingerstick) 143 mg/dL (70-99) 114 mg/dL (70-99) 100 mg/dL (70-99) Sodium Level 140 mmol/L (136-145) Potassium Level 4.9 mmol/L (3.5-5.1) Chloride Level 109 mmol/L (98-107) Carbon Dioxide Level 27 mmol/L (21-32) Anion Gap 4 (6-14) Blood Urea Nitrogen 27 mg/dL (8-26) Creatinine 2.3 mg/dL (0.7-1.3) Estimated GFR (Cockcroft-Gault) 30.9 Glucose Level 129 mg/dL (70-99) Calcium Level 7.2 mg/dL (8.5-10.1) Test 03/21/20 12:05 Glucose (Fingerstick) 97 mg/dL (70-99) Micro Micro Microbiology 03/19/20 Gram Stain - Final, Resulted 03/19/20 Aerobic and Anaerobic Culture - Preliminary, Resulted 03/19/20 Blood Culture - Preliminary, Resulted NO GROWTH AFTER 2 DAYS Review of Systems Constitutional: yes: weakness, alert, oriented Ears/Nose/Throat: Yes: no symptom reported Eyes: Yes: no symptom reported Pulmonary: Yes dyspnea Cardiovascular: Yes no symptom reported Gastrointestional: Yes: nausea Genitourinary: Yes: no symptom reported Musculoskeletal: Yes: muscle pain, muscle stiffness Skin: Yes no symptom reported Psychiatric/Neurological: Yes: no symptom reported Endocrine: Yes: no symptom reported Hematologic/Lymphatic: Yes: no symptom reported Physical Exam General Appearance: no apparent distress Skin: warm Respiratory: decreased breath sounds Heart: S1S2, RRR Abdomen: soft, bowel sounds present Genitourinary: bladder flat, epps catheter Extremities: pulses present, no edema Neurology: alert, oriented Assessment Assessment IMP URINARY RETENTION-1.3 LITERS OUT BUT NOW OLIGURIA ARSLAN-IMPROVED WITH CR DOWN TO 2.3 CKD STAGE 3 WITH CR OF 1.5-1.6 EMPYEMA WITH CHEST ADENOPATHY PLEURAL EFFUSION HYPONATREMIA DUE TO HYPERGLYCEMIA ANEMIA OF CHRONIC DISEASED PLAN CT CHEST TODAY HYDRATION START FLOMAX CONTROL BG' RULING OUT TB D/W PULMONARY WILL FOLLOW SANJAY CAMPA MD Mar 21, 2020 12:36
[2020-03-21] MEDS: IV NORMAL SALINE 1000ML BAG 1,000 ML IV SCH ×2 (12:50→22:57)
--- NOTE | 2020-03-21 13:15 | RAD ---
CT chest without contrast HISTORY: Empyema Comparison March 19, 2020 TECHNIQUE: Computed tomographic imaging of the thorax was performed without IV contrast PQRS Compliance Statement: One or more of the following individualized dose reduction techniques were utilized for this examination: 1. Automated exposure control 2. Adjustment of the mA and/or kV according to patient size 3. Use of iterative reconstruction technique FINDINGS: Interval placement of a posterior intrapleural cope loop catheter is evident. Decrease in intrapleural fluid compared with the prior study. A rounded atelectasis or pneumonia in the left upper lobe is unchanged. Trace left pleural effusion is now present. There is mild left lower lobe atelectasis now seen. Mild abdominal ascites Subcutaneous edema is present. IMPRESSION: Interval placement of right posterior intrapleural drain with decrease in right pleural effusion Development of trace left pleural effusion Persistent left rounded atelectasis or pneumonia left upper lobe Improved right lung atelectasis and rounded right middle lobe pneumonia with trace development of left lower lobe atelectasis. Persistent findings suggesting anasarca that has worsened with development of trace ascites Electronically signed by: Reji Gaytan MD (03/21/2020 1:13 PM) [id number]
--- NOTE | 2020-03-21 14:22 | PDOC ---
PROGRESS NOTES Date of Service: DATE: 03/21/20 TIME: 14:21 Chief Complaint Chief Complaint Assessment/Plan Multiloculated right-sided pleural effusion Mediastinal and right hilar adenopathy Hyponatremia Acute renal failure secondary to most likely vasomotor nephropathy and post renal component given urinary retention Diabetes mellitus type 2 uncontrolled Anemia of chronic disease Plan tube placed and draining purulent material will probably instill tpa as per farm consultant. Broad-spectrum antibiotics follow QuantiFERON test Nephrology consultation appreciated will give albumin and lasix and follow urinary output D-dimer is high we will continue to monitor his respiratory status unlikely to have benefit from a VQ scan Insulin therapy for better glycemic control Further recommendations based on the clinical course History of Present Illness History of Present Illness No acute events reported overnight, case discussed with nursing staff patient in no acute distress no complaints during my visit Vitals Vitals Vital Signs Date Time Temp Pulse Resp B/P (MAP) Pulse Ox O2 Delivery O2 Flow Rate FiO2 03/21/20 11:00 97.5 82 16 145/87 (106) 96 Room Air 97.5 Physical Exam Lungs: Other (decrease bs right) Labs LABS Laboratory Tests Test 03/20/20 15:59 03/20/20 20:39 03/21/20 02:43 03/21/20 07:19 Glucose (Fingerstick) 143 mg/dL (70-99) 114 mg/dL (70-99) 100 mg/dL (70-99) Sodium Level 140 mmol/L (136-145) Potassium Level 4.9 mmol/L (3.5-5.1) Chloride Level 109 mmol/L (98-107) Carbon Dioxide Level 27 mmol/L (21-32) Anion Gap 4 (6-14) Blood Urea Nitrogen 27 mg/dL (8-26) Creatinine 2.3 mg/dL (0.7-1.3) Estimated GFR (Cockcroft-Gault) 30.9 Glucose Level 129 mg/dL (70-99) Calcium Level 7.2 mg/dL (8.5-10.1) Test 03/21/20 12:05 Glucose (Fingerstick) 97 mg/dL (70-99) Comment Review of Relevant I have reviewed the following items ammon (where applicable) has been applied. Labs Laboratory Tests Test 03/19/20 16:58 03/19/20 20:59 03/20/20 05:00 03/20/20 07:53 Glucose (Fingerstick) 286 mg/dL (70-99) 251 mg/dL (70-99) 125 mg/dL (70-99) Sodium Level 140 mmol/L (136-145) Potassium Level 4.5 mmol/L (3.5-5.1) Chloride Level 107 mmol/L (98-107) Carbon Dioxide Level 26 mmol/L (21-32) Anion Gap 7 (6-14) Blood Urea Nitrogen 35 mg/dL (8-26) Creatinine 2.3 mg/dL (0.7-1.3) Estimated GFR (Cockcroft-Gault) 30.9 Glucose Level 172 mg/dL (70-99) Calcium Level 7.7 mg/dL (8.5-10.1) Iron Level 16 ug/dL (65-175) Total Iron Binding Capacity 87 ug/dL (250-450) Iron Saturation 18 % (15-34) Ferritin 240 ng/mL (26-388) Test 03/20/20 11:34 03/20/20 15:59 03/20/20 20:39 03/21/20 02:43 Glucose (Fingerstick) 157 mg/dL (70-99) 143 mg/dL (70-99) 114 mg/dL (70-99) Sodium Level 140 mmol/L (136-145) Potassium Level 4.9 mmol/L (3.5-5.1) Chloride Level 109 mmol/L (98-107) Carbon Dioxide Level 27 mmol/L (21-32) Anion Gap 4 (6-14) Blood Urea Nitrogen 27 mg/dL (8-26) Creatinine 2.3 mg/dL (0.7-1.3) Estimated GFR (Cockcroft-Gault) 30.9 Glucose Level 129 mg/dL (70-99) Calcium Level 7.2 mg/dL (8.5-10.1) Test 03/21/20 07:19 03/21/20 12:05 Glucose (Fingerstick) 100 mg/dL (70-99) 97 mg/dL (70-99) Laboratory Tests Test 03/20/20 15:59 03/20/20 20:39 03/21/20 02:43 03/21/20 07:19 Glucose (Fingerstick) 143 mg/dL (70-99) 114 mg/dL (70-99) 100 mg/dL (70-99) Sodium Level 140 mmol/L (136-145) Potassium Level 4.9 mmol/L (3.5-5.1) Chloride Level 109 mmol/L (98-107) Carbon Dioxide Level 27 mmol/L (21-32) Anion Gap 4 (6-14) Blood Urea Nitrogen 27 mg/dL (8-26) Creatinine 2.3 mg/dL (0.7-1.3) Estimated GFR (Cockcroft-Gault) 30.9 Glucose Level 129 mg/dL (70-99) Calcium Level 7.2 mg/dL (8.5-10.1) Test 03/21/20 12:05 Glucose (Fingerstick) 97 mg/dL (70-99) Microbiology 03/19/20 Gram Stain - Final, Resulted 03/19/20 Aerobic and Anaerobic Culture - Preliminary, Resulted 03/19/20 Blood Culture - Preliminary, Resulted NO GROWTH AFTER 2 DAYS Medications Current Medications Sodium Chloride 1,000 ml @ 1,000 mls/hr 1X ONCE IV Last administered on 03/18/20at 23:48; Start 03/18/20 at 23:45; Stop 03/19/20 at 00:44; Status DC Piperacillin Sod/ Tazobactam Sod 3.375 gm/Sodium Chloride 50 ml @ 100 mls/hr 1X ONCE IV Last administered on 03/19/20at 02:56; Start 03/19/20 at 02:30; Stop 03/19/20 at 02:59; Status DC Insulin Human Regular (HumuLIN R VIAL) 8 unit 1X ONCE IV Last administered on 03/19/20at 04:42; Start 03/19/20 at 04:15; Stop 03/19/20 at 04:35; Status DC Sodium Chloride 1,000 ml @ 100 mls/hr Q10H IV Last administered on 03/20/20at 09:23; Start 03/19/20 at 08:22; Stop 03/20/20 at 13:35; Status DC Ondansetron HCl (Zofran) 4 mg PRN Q4HRS PRN IV NAUSEA/VOMITING; Start 03/19/20 at 08:30 Zolpidem Tartrate (Ambien) 5 mg PRN QHS PRN PO INSOMNIA; Start 03/19/20 at 08:30 Acetaminophen (Tylenol) 650 mg PRN Q4HRS PRN PO TEMP OVER 100.4F OR MILD PAIN; Start 03/19/20 at 08:30 Diphenhydramine HCl (Benadryl) 25 mg PRN Q4HRS PRN IVP ITCHING; Start 03/19/20 at 08:30 Albuterol Sulfate (Ventolin Neb Soln) 2.5 mg PRN Q4HRS PRN NEB SHORTNESS OF BREATH; Start 03/19/20 at 08:30 Guaifenesin (Robitussin) 200 mg PRN Q4HRS PRN PO COUGH; Start 03/19/20 at 08:30 Lorazepam (Ativan) 0.5 mg PRN Q4HRS PRN PO ANXIETY / AGITATION; Start 03/19/20 at 08:30 Enoxaparin Sodium (Lovenox 40mg Syringe) 40 mg Q24H SQ ; Start 03/19/20 at 08:30; Status UNV Oxycodone HCl (Roxicodone) 5 mg PRN Q6HRS PRN PO MODERATE-SEVERE PAIN Last administered on 03/19/20at 22:04; Start 03/19/20 at 08:30 Piperacillin Sod/ Tazobactam Sod 3.375 gm/Sodium Chloride 50 ml @ 100 mls/hr Q6HRS IV Last administered on 03/21/20at 12:10; Start 03/19/20 at 12:00 Insulin Human Lispro (HumaLOG) 0-9 UNITS TIDWMEALS SQ ; Start 03/19/20 at 12:00; Stop 03/19/20 at 08:36; Status DC Dextrose (Dextrose 50%-Water Syringe) 12.5 gm PRN Q15MIN PRN IV SEE COMMENTS; Start 03/19/20 at 08:30 Insulin Glargine (Lantus Syringe) 10 unit BID SQ Last administered on 03/20/20at 09:22; Start 03/19/20 at 09:00; Stop 03/20/20 at 21:19; Status DC Insulin Human Lispro (HumaLOG) 0-9 UNITS TIDWMEALS SQ Last administered on 03/20/20at 12:16; Start 03/19/20 at 08:45 Enoxaparin Sodium (Lovenox 30mg Syringe) 30 mg Q24H SQ ; Start 03/19/20 at 09:00; Stop 03/20/20 at 08:51; Status DC Lidocaine HCl (Buffered Lidocaine 1%) 12 ml 1X ONCE INJ ; Start 03/19/20 at 11:00; Stop 03/19/20 at 11:01; Status DC Lidocaine HCl (Lidocaine 1% 20ml Vial) 20 ml STK-MED ONCE .ROUTE ; Start 03/19/20 at 10:53; Stop 03/19/20 at 10:53; Status DC Insulin Human Lispro (HumaLOG) 5 units 1X ONCE SQ Last administered on 03/19/20at 12:51; Start 03/19/20 at 13:00; Stop 03/19/20 at 13:01; Status DC Insulin Glargine (Lantus Syringe) 10 unit BID SQ Last administered on 03/21/20at 09:15; Start 03/20/20 at 21:30 Albumin Human 100 ml @ 100 mls/hr 1X ONCE IV Last administered on 03/21/20at 11:58; Start 03/21/20 at 10:30; Stop 03/21/20 at 11:29; Status DC Furosemide (Lasix) 20 mg 1X ONCE IVP Last administered on 03/21/20at 11:57; Start 03/21/20 at 10:30; Stop 03/21/20 at 10:33; Status DC Sodium Chloride 1,000 ml @ 75 mls/hr [id number] IV Last administered on 03/21/20at 12:50; Start 03/21/20 at 12:45 Tamsulosin HCl (Flomax) 0.4 mg QHS PO ; Start 03/21/20 at 21:00 Active Scripts Active Oxycodone Hcl Immed.release (Oxycodone Hcl) 5 Mg Tablet 5 Mg PO PRN Q6HRS PRN Glucophage (Metformin Hcl) 1,000 Mg Tablet 1,000 Mg PO BIDWMEALS 30 Days Amaryl (Glimepiride) 2 Mg Tablet 2 Mg PO DAILY 30 Days Vitals/I & O Vital Sign - Last 24 Hours 03/20/20 03/20/20 03/20/20 03/20/20 15:01 19:24 19:29 22:33 Temp 98.4 98.0 98.2 98.4 98.0 98.2 Pulse 82 85 82 Resp 18 18 18 B/P (MAP) 131/73 (92) 136/79 (98) 140/79 (99) Pulse Ox 99 95 98 O2 Delivery Room Air Room Air Room Air Room Air 03/21/20 03/21/20 03/21/20 03/21/20 03:09 07:00 08:00 11:00 Temp 97.7 97.8 97.5 97.7 97.8 97.5 Pulse 84 83 82 Resp 18 16 16 B/P (MAP) 152/87 (108) 160/88 (112) 145/87 (106) Pulse Ox 95 97 96 O2 Delivery Room Air Room Air Room Air Room Air Intake and Output 03/20/20 03/20/20 03/21/20 15:00 23:00 07:00 Intake Total 220 ml 180 ml 280 ml Output Total 725 ml 430 ml Balance 220 ml -545 ml -150 ml Justicifation of Admission Dx: Justifications for Admission: Justification of Admission Dx: Yes BEVERLY VALERIO MD Mar 21, 2020 14:22
[2020-03-21 15:00] VITALS: BP 129/80
[2020-03-21 19:57] VITALS: BP 135/85
[2020-03-21] MEDS: TAMSULOSIN 0.4 MG CAP.ER.24H. PO SCH (20:59)
[2020-03-21 22:21] VITALS: BP 146/82
[2020-03-22] VITALS (9 sets, daily range): BP systolic 116–170; BP diastolic 73–94
[2020-03-22] MEDS: PIPERACILLIN/TAZOBACTAM 3.375 GM in IV NORMAL SALINE 50ML 50 ML IV SCH ×4 (05:02→23:56)
[2020-03-22 05:36] LABS: CALCIUM 7.3 mg/dL (8.5-10.1); CREATININE 2.2 mg/dL (0.7-1.3); GFR 32.5; POTASSIUM 4.5 mmol/L (3.5-5.1)
[2020-03-22] MEDS: INSULIN LISPRO 300 UNITS/3 ML VIAL. SQ SCH ×3 (08:00→17:00)
[2020-03-22] MEDS: INSULIN GLARGINE SYRINGE. SQ SCH ×2 (09:00→21:05)
--- NOTE | 2020-03-22 09:17 | CONS ---
DATE OF CONSULTATION: 03/21/2020 REQUESTING PHYSICIAN: Dr. Ham. REASON FOR CONSULTATION: Empyema. HISTORY OF PRESENT ILLNESS: This is a 44-year-old gentleman who came in with 2-week history of chest pain. The patient has had some fever at home, some cough. The patient was found to have right-sided pleural effusion, loculated effusion. The patient had chest tube drainage done, has not had any fever here or white count. His chest tube drainage had shown 827,000 WBC; 692 glucose; LDH is 10,444. The patient is receiving Zosyn. The patient has a chest tube in place and his cultures, blood and chest tube fluid, both are negative so far. The patient denies any nausea, vomiting, diarrhea, chest pain, shortness of breath, abdominal pain. PAST MEDICAL HISTORY: Essentially unremarkable other than diabetes and toe amputation done. SOCIAL HISTORY: Negative for smoking, alcohol, or illicit drug use. ALLERGIES: No known drug allergies. CURRENT MEDICATIONS: Reviewed. REVIEW OF SYSTEMS: As per HPI, all other systems reviewed are negative. PHYSICAL EXAMINATION: GENERAL: Alert and oriented gentleman, not in distress. VITAL SIGNS: Stable, afebrile. HEENT: NAD. NECK: Supple, no JVP, no lymphadenopathy. LUNGS: Clear. Decreased breath sounds. HEART: S1, S2 regular. No gallop or murmur. ABDOMEN: Soft, nontender, no organomegaly. EXTREMITIES: No edema, cyanosis. SKIN: Unremarkable. The patient does have a Kumar catheter in place as he had a retention. Also, the chest tube fluid is straw colored. LABORATORY DATA: White count is normal, hemoglobin 7.5, platelets are 549,000. BUN and creatinine is 27 and 2.23 and 2.2. Urinalysis unremarkable and the pleural fluid, as I mentioned in the HPI. CT of the chest now has a most recent one has improved. IMPRESSION: 1. Loculated right-sided pleural effusion, status post chest tube drainage. Pleural fluid analysis does not make sense. He has more glucose in the pleural fluid then the blood. LDH is very high and the pH is very low and the cell count is really high. 2. Renal insufficiency. 3. Diabetes. RECOMMENDATIONS: Continue Zosyn probably should consider reobtaining the fluids and also doing AFB stain and culture and/or even bronchoscopy. Supportive care and we will continue to follow. Thank you very much, Dr. Ham and Dr. Sears, for giving me to participate in this patient's care. ASHLEIGH SANFORD MD DR: JEREMY/eileen JOB#: [id number] / [id number] MASON
[2020-03-22] MEDS ORDERED: LIDOCAINE WITH 8.4% SOD BICARB 3 ML DISP.SYRIN. ONE (09:39)
[2020-03-22] MEDS ORDERED: MIDAZOLAM HCL/PF 2 MG/2 ML VIAL. ONE (09:43)
[2020-03-22] MEDS ORDERED: fentaNYL PF VIAL 100 MCG/2 ML VIAL ONE (09:43)
[2020-03-22] MEDS ORDERED: MIDAZOLAM HCL/PF 2 MG/2 ML VIAL. IV ONE (09:45)
[2020-03-22] MEDS ORDERED: LIDOCAINE WITH 8.4% SOD BICARB 3 ML DISP.SYRIN. IJ ONE (09:45)
[2020-03-22] MEDS ORDERED: fentaNYL PF VIAL 100 MCG/2 ML VIAL IV ONE (09:45)
--- NOTE | 2020-03-22 10:39 | NUR ---
SS following up with discharge planning. SS reviewed pt chart and discussed with pt RN. Pt is currently requiring oxygen. Pt on IV Zosyn. Pt having new chest tube placed today. Pt is self pay. [facility] reported that pt is not a citizen. SS will continue to follow for discharge planning.
--- NOTE | 2020-03-22 11:17 | PDOC ---
PULMONARY PROGRESS NOTES DATE: 03/22/20 TIME: 11:15 Subjective purulent drainage fro ct output 1200 cc initially, not much in 24 hrs Vitals Vital Signs Date Time Temp Pulse Resp B/P (MAP) Pulse Ox O2 Delivery O2 Flow Rate FiO2 03/22/20 10:58 95.9 81 16 131/80 (97) 95 Room Air 95.9 03/22/20 10:14 2.0 General: Alert, No acute distress Lungs: Other (decrease bs right) Cardiovascular: S1 Abdomen: Soft Neuro Exam: Alert Extremities: No Edema Skin: Warm Labs Laboratory Tests Test 03/20/20 11:34 03/20/20 15:59 03/20/20 20:39 03/21/20 02:43 Glucose (Fingerstick) 157 mg/dL (70-99) 143 mg/dL (70-99) 114 mg/dL (70-99) Sodium Level 140 mmol/L (136-145) Potassium Level 4.9 mmol/L (3.5-5.1) Chloride Level 109 mmol/L (98-107) Carbon Dioxide Level 27 mmol/L (21-32) Anion Gap 4 (6-14) Blood Urea Nitrogen 27 mg/dL (8-26) Creatinine 2.3 mg/dL (0.7-1.3) Estimated GFR (Cockcroft-Gault) 30.9 Glucose Level 129 mg/dL (70-99) Calcium Level 7.2 mg/dL (8.5-10.1) Test 03/21/20 07:19 03/21/20 12:05 03/21/20 16:55 03/21/20 20:49 Glucose (Fingerstick) 100 mg/dL (70-99) 97 mg/dL (70-99) 90 mg/dL (70-99) 130 mg/dL (70-99) Test 03/22/20 04:20 03/22/20 07:05 Sodium Level 141 mmol/L (136-145) Potassium Level 4.5 mmol/L (3.5-5.1) Chloride Level 107 mmol/L (98-107) Carbon Dioxide Level 26 mmol/L (21-32) Anion Gap 8 (6-14) Blood Urea Nitrogen 23 mg/dL (8-26) Creatinine 2.2 mg/dL (0.7-1.3) Estimated GFR (Cockcroft-Gault) 32.5 Glucose Level 78 mg/dL (70-99) Calcium Level 7.3 mg/dL (8.5-10.1) Glucose (Fingerstick) 70 mg/dL (70-99) Laboratory Tests Test 03/21/20 12:05 03/21/20 16:55 03/21/20 20:49 03/22/20 04:20 Glucose (Fingerstick) 97 mg/dL (70-99) 90 mg/dL (70-99) 130 mg/dL (70-99) Sodium Level 141 mmol/L (136-145) Potassium Level 4.5 mmol/L (3.5-5.1) Chloride Level 107 mmol/L (98-107) Carbon Dioxide Level 26 mmol/L (21-32) Anion Gap 8 (6-14) Blood Urea Nitrogen 23 mg/dL (8-26) Creatinine 2.2 mg/dL (0.7-1.3) Estimated GFR (Cockcroft-Gault) 32.5 Glucose Level 78 mg/dL (70-99) Calcium Level 7.3 mg/dL (8.5-10.1) Test 03/22/20 07:05 Glucose (Fingerstick) 70 mg/dL (70-99) Medications Active Scripts Medications Dose Route/Sig Max Daily Dose Days Date Category Oxycodone Hcl Immed.release (Oxycodone Hcl) 5 Mg Tablet 5 Mg PO PRN Q6HRS PRN 02/26/17 Rx Glucophage (Metformin Hcl) 1,000 Mg Tablet 1,000 Mg PO BIDWMEALS 30 02/26/17 Rx Amaryl (Glimepiride) 2 Mg Tablet 2 Mg PO DAILY 30 02/26/17 Rx Comments cxr 03/22 improving infiltrates right Impression . 1. Abnormal CT chest with multi-loculated right sided pleural-effusions along with mediastinal and right hilar adenopathy and narrowing of the right mainstem bronchus. He has another pocket of density in the left lung as well. The patient has lost weight, loss of appetite and came in with chest wall pain. Differential diagnosis would include: A. Empyema with reactive adenopathy. B. less likely malignancy. C. less likely TB pleuritis. 2. Acute kidney injury. 3. Hyponatremia. 4. Anemia of chronic disease. 5. Hyperglycemia. Plan . RECOMMENDATIONS: 1. s/p right chest tubes CT-guided . vita pus . PH 5.4 ? reliable. s/p second chest tube today 2. f/u cxr.improving. CT chest 03/21 reviewed. 3. We will need probably tPA via chest tube. 4. Renal recommendations. 5. Monitor sodium. 6. TB QuantiFERON test. 7. D-dimer is high, which could be related to an empyema or malignancy. Hold lovenox as he may need TPA Get v. Dopplers. 8. Monitoring of glucose per PCP. 9. Discussed with RN/CLAYTON BENTLEY MD Mar 22, 2020 11:17
--- NOTE | 2020-03-22 12:03 | RAD ---
EXAM: PORTABLE CHEST 1V INDICATION: Reason: empyema / Spl. Instructions: / History: . TECHNIQUE: Single view COMPARISON: 03/21/2020 chest x-ray, CT "drainage catheter procedure of 03/22/2020 FINDINGS: The heart size is normal. The great vessels appear unremarkable. There is no hilar or mediastinal mass. Lungs show slight improvement in aeration of the right lung with residual right greater than left bilateral patchy opacities. There is no pleural effusion or pneumothorax. A pigtail drainage catheter in the right upper quadrant abdomen remains present and is associated with a small amount of increased lucency in the inferior right hemithorax.. IMPRESSION: The 2 drainage catheter appears in good position with increased lucency of the inferior right hemithorax, likely representing partial evacuation of loculated fluid in the anterior right pleural space.. Electronically signed by: Terrell Estrada MD (03/22/2020 12:00 PM) [id number]
--- NOTE | 2020-03-22 12:04 | RAD ---
Procedure: CT-guided right thoracostomy tube placement Clinical Indication: Anterior loculated empyema Sedation: Conscious sedation was administered for 15 minutes. The patient was monitored by a qualified independent observer throughout the time of sedation. Please refer to the medical record for exact doses of medications utilized to achieve moderate sedation. Sterility: The procedure was performed in its entirety using appropriate elements of sterile technique. Consent: The procedure was explained in its entirety to the patient or the patients designated sales support representative by a member of the treatment team, including a discussion of the risks, benefits and commonly accepted alternatives to the procedure, as well as the expected consequences of no therapy whatsoever. Discussion of the risks included, but was not limited to, those that are most frequent and those that are rare but possibly severe or life-threatening, as well as the possibility of unforeseen complications. Technique and Findings: Following informed consent, the patient was prepped and draped in the usual sterile fashion. CT imaging demonstrates a rounded loculated empyema in the anterior right thorax. 1% lidocaine was administered for local anesthesia. Under intermittent CT guidance a 5 Burkinan Yueh needle was advanced into the collection. A guidewire was advanced into the collection over which following dilatation a 10 Burkinan drain was placed. Green purulent aspirate was obtained and sent for Gram stain and culture per ordering physician request. The catheter was secured in place and connected to Pleur-evac device at -20 cm water. Sterile dressings were applied. No immediate complications were identified. Impression: CT-guided right thoracostomy tube placement PQRS Compliance Statement: One or more of the following individualized dose reduction techniques were utilized for this examination: 1. Automated exposure control 2. Adjustment of the mA and/or kV according to patient size 3. Use of iterative reconstruction technique
[2020-03-22 12:59] LABS: BF CLARITY TURBID; BF COLOR GREEN; BF RBC COUNT 1025 /cmm (Not Established); BF SOURCE PLEURAL; PH,BODY FLUID 6.38
[2020-03-22 13:02] LABS: BF WBC COUNT 214185 /cmm (Not Established)
--- NOTE | 2020-03-22 13:06 | PDOC ---
PROGRESS NOTES Date of Service: DATE: 03/22/20 TIME: 13:04 Chief Complaint Chief Complaint Assessment/Plan Multiloculated right-sided pleural effusion Mediastinal and right hilar adenopathy Hyponatremia Acute renal failure secondary to most likely vasomotor nephropathy and post renal component given urinary retention Diabetes mellitus type 2 uncontrolled Anemia of chronic disease Plan tube placed and draining purulent material will probably instill tpa as per solutions consultant. Broad-spectrum antibiotics follow QuantiFERON test Nephrology consultation appreciated will give albumin and lasix and follow urinary output D-dimer is high we will continue to monitor his respiratory status unlikely to have benefit from a VQ scan Insulin therapy for better glycemic control Further recommendations based on the clinical course History of Present Illness History of Present Illness No acute events reported overnight, case discussed with nursing staff patient in no acute distress no complaints during my visit Vitals Vitals Vital Signs Date Time Temp Pulse Resp B/P (MAP) Pulse Ox O2 Delivery O2 Flow Rate FiO2 03/22/20 11:29 98 Room Air 03/22/20 10:58 95.9 81 16 131/80 (97) 95.9 03/22/20 10:14 2.0 Physical Exam Physical Exam Physical Exam GEN.: Chronically ill-appearing older than the stated age no apparent di stress. Alert and oriented. HEENT: Head is normocephalic, atraumatic NECK: Supple. LUNGS: Clear to auscultation. HEART: RRR, S1, S2 present. Peripheral pulses intact ABDOMEN: Soft, nontender. Positive bowel sounds. EXTREMITIES: Without any cyanosis. Positive clubbing first and second great toe amputation with no evidence of diabetic ulcers on his feet NEUROLOGIC: Normal speech, normal tone PSYCHIATRIC: Normal affect, normal mood. SKIN: No ulcerations Lungs: Other (decrease bs right) Labs LABS Laboratory Tests Test 03/21/20 16:55 03/21/20 20:49 03/22/20 04:20 03/22/20 07:05 Glucose (Fingerstick) 90 mg/dL (70-99) 130 mg/dL (70-99) 70 mg/dL (70-99) Sodium Level 141 mmol/L (136-145) Potassium Level 4.5 mmol/L (3.5-5.1) Chloride Level 107 mmol/L (98-107) Carbon Dioxide Level 26 mmol/L (21-32) Anion Gap 8 (6-14) Blood Urea Nitrogen 23 mg/dL (8-26) Creatinine 2.2 mg/dL (0.7-1.3) Estimated GFR (Cockcroft-Gault) 32.5 Glucose Level 78 mg/dL (70-99) Calcium Level 7.3 mg/dL (8.5-10.1) Test 03/22/20 10:00 03/22/20 11:51 Body Fluid Source Pleural Body Fluid Color Green Body Fluid Clarity Turbid Body Fluid pH 6.38 Body Fluid Nucleated Cells 016718 /cmm (Not Body Fluid Total RBCs Counted 1025 /cmm (Not Established) Glucose (Fingerstick) 67 mg/dL (70-99) Comment Review of Relevant I have reviewed the following items ammon (where applicable) has been applied. Labs Laboratory Tests Test 03/20/20 15:59 03/20/20 20:39 03/21/20 02:43 03/21/20 07:19 Glucose (Fingerstick) 143 mg/dL (70-99) 114 mg/dL (70-99) 100 mg/dL (70-99) Sodium Level 140 mmol/L (136-145) Potassium Level 4.9 mmol/L (3.5-5.1) Chloride Level 109 mmol/L (98-107) Carbon Dioxide Level 27 mmol/L (21-32) Anion Gap 4 (6-14) Blood Urea Nitrogen 27 mg/dL (8-26) Creatinine 2.3 mg/dL (0.7-1.3) Estimated GFR (Cockcroft-Gault) 30.9 Glucose Level 129 mg/dL (70-99) Calcium Level 7.2 mg/dL (8.5-10.1) Test 03/21/20 12:05 03/21/20 16:55 03/21/20 20:49 03/22/20 04:20 Glucose (Fingerstick) 97 mg/dL (70-99) 90 mg/dL (70-99) 130 mg/dL (70-99) Sodium Level 141 mmol/L (136-145) Potassium Level 4.5 mmol/L (3.5-5.1) Chloride Level 107 mmol/L (98-107) Carbon Dioxide Level 26 mmol/L (21-32) Anion Gap 8 (6-14) Blood Urea Nitrogen 23 mg/dL (8-26) Creatinine 2.2 mg/dL (0.7-1.3) Estimated GFR (Cockcroft-Gault) 32.5 Glucose Level 78 mg/dL (70-99) Calcium Level 7.3 mg/dL (8.5-10.1) Test 03/22/20 07:05 03/22/20 10:00 03/22/20 11:51 Glucose (Fingerstick) 70 mg/dL (70-99) 67 mg/dL (70-99) Body Fluid Source Pleural Body Fluid Color Green Body Fluid Clarity Turbid Body Fluid pH 6.38 Body Fluid Nucleated Cells 735382 /cmm (Not Body Fluid Total RBCs Counted 1025 /cmm (Not Established) Laboratory Tests Test 03/21/20 16:55 03/21/20 20:49 03/22/20 04:20 03/22/20 07:05 Glucose (Fingerstick) 90 mg/dL (70-99) 130 mg/dL (70-99) 70 mg/dL (70-99) Sodium Level 141 mmol/L (136-145) Potassium Level 4.5 mmol/L (3.5-5.1) Chloride Level 107 mmol/L (98-107) Carbon Dioxide Level 26 mmol/L (21-32) Anion Gap 8 (6-14) Blood Urea Nitrogen 23 mg/dL (8-26) Creatinine 2.2 mg/dL (0.7-1.3) Estimated GFR (Cockcroft-Gault) 32.5 Glucose Level 78 mg/dL (70-99) Calcium Level 7.3 mg/dL (8.5-10.1) Test 03/22/20 10:00 03/22/20 11:51 Body Fluid Source Pleural Body Fluid Color Green Body Fluid Clarity Turbid Body Fluid pH 6.38 Body Fluid Nucleated Cells 243678 /cmm (Not Body Fluid Total RBCs Counted 1025 /cmm (Not Established) Glucose (Fingerstick) 67 mg/dL (70-99) Microbiology 03/19/20 Gram Stain - Final, Resulted 03/19/20 Aerobic and Anaerobic Culture - Preliminary, Resulted 03/19/20 Blood Culture - Preliminary, Resulted NO GROWTH AFTER 3 DAYS Medications Current Medications Sodium Chloride 1,000 ml @ 1,000 mls/hr 1X ONCE IV Last administered on 03/18/20at 23:48; Start 03/18/20 at 23:45; Stop 03/19/20 at 00:44; Status DC Piperacillin Sod/ Tazobactam Sod 3.375 gm/Sodium Chloride 50 ml @ 100 mls/hr 1X ONCE IV Last administered on 03/19/20at 02:56; Start 03/19/20 at 02:30; Stop 03/19/20 at 02:59; Status DC Insulin Human Regular (HumuLIN R VIAL) 8 unit 1X ONCE IV Last administered on 03/19/20at 04:42; Start 03/19/20 at 04:15; Stop 03/19/20 at 04:35; Status DC Sodium Chloride 1,000 ml @ 100 mls/hr Q10H IV Last administered on 03/20/20at 09:23; Start 03/19/20 at 08:22; Stop 03/20/20 at 13:35; Status DC Ondansetron HCl (Zofran) 4 mg PRN Q4HRS PRN IV NAUSEA/VOMITING; Start 03/19/20 at 08:30 Zolpidem Tartrate (Ambien) 5 mg PRN QHS PRN PO INSOMNIA; Start 03/19/20 at 08:30 Acetaminophen (Tylenol) 650 mg PRN Q4HRS PRN PO TEMP OVER 100.4F OR MILD PAIN; Start 03/19/20 at 08:30 Diphenhydramine HCl (Benadryl) 25 mg PRN Q4HRS PRN IVP ITCHING; Start 03/19/20 at 08:30 Albuterol Sulfate (Ventolin Neb Soln) 2.5 mg PRN Q4HRS PRN NEB SHORTNESS OF BREATH; Start 03/19/20 at 08:30 Guaifenesin (Robitussin) 200 mg PRN Q4HRS PRN PO COUGH; Start 03/19/20 at 08:30 Lorazepam (Ativan) 0.5 mg PRN Q4HRS PRN PO ANXIETY / AGITATION; Start 03/19/20 at 08:30 Enoxaparin Sodium (Lovenox 40mg Syringe) 40 mg Q24H SQ ; Start 03/19/20 at 08:30; Status UNV Oxycodone HCl (Roxicodone) 5 mg PRN Q6HRS PRN PO MODERATE-SEVERE PAIN Last administered on 03/19/20at 22:04; Start 03/19/20 at 08:30 Piperacillin Sod/ Tazobactam Sod 3.375 gm/Sodium Chloride 50 ml @ 100 mls/hr Q6HRS IV Last administered on 03/22/20at 11:55; Start 03/19/20 at 12:00 Insulin Human Lispro (HumaLOG) 0-9 UNITS TIDWMEALS SQ ; Start 03/19/20 at 12:00; Stop 03/19/20 at 08:36; Status DC Dextrose (Dextrose 50%-Water Syringe) 12.5 gm PRN Q15MIN PRN IV SEE COMMENTS; Start 03/19/20 at 08:30 Insulin Glargine (Lantus Syringe) 10 unit BID SQ Last administered on 03/20/20at 09:22; Start 03/19/20 at 09:00; Stop 03/20/20 at 21:19; Status DC Insulin Human Lispro (HumaLOG) 0-9 UNITS TIDWMEALS SQ Last administered on 03/20/20at 12:16; Start 03/19/20 at 08:45 Enoxaparin Sodium (Lovenox 30mg Syringe) 30 mg Q24H SQ ; Start 03/19/20 at 09:00; Stop 03/20/20 at 08:51; Status DC Lidocaine HCl (Buffered Lidocaine 1%) 12 ml 1X ONCE INJ ; Start 03/19/20 at 11:00; Stop 03/19/20 at 11:01; Status DC Lidocaine HCl (Lidocaine 1% 20ml Vial) 20 ml STK-MED ONCE .ROUTE ; Start 03/19/20 at 10:53; Stop 03/19/20 at 10:53; Status DC Insulin Human Lispro (HumaLOG) 5 units 1X ONCE SQ Last administered on 03/19/20at 12:51; Start 03/19/20 at 13:00; Stop 03/19/20 at 13:01; Status DC Insulin Glargine (Lantus Syringe) 10 unit BID SQ Last administered on 03/21/20at 21:00; Start 03/20/20 at 21:30 Albumin Human 100 ml @ 100 mls/hr 1X ONCE IV Last administered on 03/21/20at 11:58; Start 03/21/20 at 10:30; Stop 03/21/20 at 11:29; Status DC Furosemide (Lasix) 20 mg 1X ONCE IVP Last administered on 03/21/20at 11:57; Start 03/21/20 at 10:30; Stop 03/21/20 at 10:33; Status DC Sodium Chloride 1,000 ml @ 75 mls/hr [id number] IV Last administered on 03/21/20at 22:57; Start 03/21/20 at 12:45 Tamsulosin HCl (Flomax) 0.4 mg QHS PO Last administered on 03/21/20at 20:59; Start 03/21/20 at 21:00 Lidocaine HCl (Buffered Lidocaine 1%) 3 ml STK-MED ONCE .ROUTE ; Start 03/22/20 at 09:39; Stop 03/22/20 at 09:39; Status DC Midazolam HCl (Versed) 2 mg STK-MED ONCE .ROUTE ; Start 03/22/20 at 09:43; Stop 03/22/20 at 09:44; Status DC Fentanyl Citrate (Fentanyl 2ml Vial) 100 mcg STK-MED ONCE .ROUTE ; Start 03/22/20 at 09:43; Stop 03/22/20 at 09:44; Status DC Lidocaine HCl (Buffered Lidocaine 1%) 3 ml 1X ONCE IJ Last administered on 03/22/20at 10:15; Start 03/22/20 at 09:45; Stop 03/22/20 at 09:48; Status DC Midazolam HCl (Versed) 2 mg 1X ONCE IV Last administered on 03/22/20at 10:14; Start 03/22/20 at 09:45; Stop 03/22/20 at 09:48; Status DC Fentanyl Citrate (Fentanyl 2ml Vial) 100 mcg 1X ONCE IV Last administered on 03/22/20at 10:14; Start 03/22/20 at 09:45; Stop 03/22/20 at 09:48; Status DC Active Scripts Active Oxycodone Hcl Immed.release (Oxycodone Hcl) 5 Mg Tablet 5 Mg PO PRN Q6HRS PRN Glucophage (Metformin Hcl) 1,000 Mg Tablet 1,000 Mg PO BIDWMEALS 30 Days Amaryl (Glimepiride) 2 Mg Tablet 2 Mg PO DAILY 30 Days Vitals/I & O Vital Sign - Last 24 Hours 03/21/20 03/21/20 03/21/2003/21/20 15:00 19:19 19:57 22:21 Temp 97.4 97.9 98.0 97.4 97.9 98.0 Pulse 85 82 Resp 16 16 16 B/P (MAP) 129/80 (96) 135/85 (102) 146/82 (103) Pulse Ox 95 96 97 O2 Delivery Room Air Room Air Room Air Room Air 03/22/20 03/22/20 03/22/20 03/22/20 02:54 07:00 08:00 09:58 Temp 98.1 97.7 98.1 97.7 Pulse 83 83 85 Resp 16 16 16 B/P (MAP) 148/87 (107) 143/85 (104) Pulse Ox 96 95 97 O2 Delivery Room Air Room Air Room Air Nasal Cannula O2 Flow Rate 2.0 03/22/20 03/22/20 03/22/20 03/22/20 10:03 10:08 10:14 10:58 Temp 95.9 95.9 Pulse 73 74 81 Resp 10 12 14 16 B/P (MAP) 131/80 (97) Pulse Ox 99 99 99 95 O2 Delivery Nasal Cannula Nasal Cannula Nasal Cannula Room Air O2 Flow Rate 2.0 2.0 2.0 03/22/20 11:29 Pulse Ox 98 O2 Delivery Room Air Intake and Output 03/21/20 03/21/20 03/22/20 15:00 23:00 07:00 Intake Total 518 ml 700 ml 1075 ml Output Total 30 ml 90 ml 250 ml Balance 488 ml 610 ml 825 ml Justicifation of Admission Dx: Justifications for Admission: Justification of Admission Dx: Yes BEVERLY VALERIO MD Mar 22, 2020 13:06
--- NOTE | 2020-03-22 13:15 | PDOC ---
Renal-Progress Notes Subjective Notes Notes NO NEW COMPLAINTS History of Present Illness Hx of present illness STABLE Vitals Vitals Vital Signs Date Time Temp Pulse Resp B/P (MAP) Pulse Ox O2 Delivery O2 Flow Rate FiO2 03/22/20 11:29 98 Room Air 03/22/20 10:58 95.9 81 16 131/80 (97) 95.9 03/22/20 10:14 2.0 Weight Weight [ ] I.O. Intake and Output Intake and Output 03/22/20 07:00 Intake Total 2293 ml Output Total 370 ml Balance 1923 ml Intake Oral 1418 ml IV Total 875 ml Output Urine Total 310 ml Chest Tube Drainage Total 60 ml Labs Labs Laboratory Tests Test 03/21/20 16:55 03/21/20 20:49 03/22/20 04:20 03/22/20 07:05 Glucose (Fingerstick) 90 mg/dL (70-99) 130 mg/dL (70-99) 70 mg/dL (70-99) Sodium Level 141 mmol/L (136-145) Potassium Level 4.5 mmol/L (3.5-5.1) Chloride Level 107 mmol/L (98-107) Carbon Dioxide Level 26 mmol/L (21-32) Anion Gap 8 (6-14) Blood Urea Nitrogen 23 mg/dL (8-26) Creatinine 2.2 mg/dL (0.7-1.3) Estimated GFR (Cockcroft-Gault) 32.5 Glucose Level 78 mg/dL (70-99) Calcium Level 7.3 mg/dL (8.5-10.1) Test 03/22/20 10:00 03/22/20 11:51 Body Fluid Source Pleural Body Fluid Color Green Body Fluid Clarity Turbid Body Fluid pH 6.38 Body Fluid Nucleated Cells 634105 /cmm (Not Body Fluid Total RBCs Counted 1025 /cmm (Not Established) Glucose (Fingerstick) 67 mg/dL (70-99) Micro Micro Microbiology 03/19/20 Gram Stain - Final, Resulted 03/19/20 Aerobic and Anaerobic Culture - Preliminary, Resulted 03/19/20 Blood Culture - Preliminary, Resulted NO GROWTH AFTER 3 DAYS Review of Systems Constitutional: yes: weakness, alert, oriented Ears/Nose/Throat: Yes: no symptom reported Eyes: Yes: no symptom reported Pulmonary: Yes dyspnea Cardiovascular: Yes no symptom reported Gastrointestional: Yes: nausea Genitourinary: Yes: no symptom reported Musculoskeletal: Yes: muscle pain, muscle stiffness Skin: Yes no symptom reported Psychiatric/Neurological: Yes: no symptom reported Endocrine: Yes: no symptom reported Hematologic/Lymphatic: Yes: no symptom reported Physical Exam General Appearance: no apparent distress Skin: warm Respiratory: decreased breath sounds Heart: S1S2, RRR Abdomen: soft, bowel sounds present Genitourinary: bladder flat, epps catheter Extremities: pulses present, no edema Neurology: alert, oriented Assessment Assessment IMP URINARY RETENTION-1.8 LITERS OUT THIS AM AFTER NO MUCH OVERNIGHT-EPPS APPEARS POSITIONAL ARSLAN-IMPROVED WITH CR DOWN TO 2.2 CKD STAGE 3 WITH CR OF 1.5-1.6 EMPYEMA WITH CHEST ADENOPATHY PLEURAL EFFUSION HYPONATREMIA DUE TO HYPERGLYCEMIA ANEMIA OF CHRONIC DISEASED PLAN CHEST DRAINS HYDRATION STARTED FLOMAX CONTROL BG' RULING OUT TB D/W PULMONARY WILL FOLLOW SANJAY CAMPA MD Mar 22, 2020 13:15
[2020-03-22] MEDS ORDERED: TAMSULOSIN 0.4 MG CAP.ER.24H. PO SCH (13:30)
[2020-03-22] MEDS: IV NORMAL SALINE 1000ML BAG 1,000 ML IV SCH (15:32)
[2020-03-22] MEDS: DRONABINOL 2.5 MG CAPSULE. PO SCH (15:37)
[2020-03-22] MEDS: LACTOBACILLUS RHAMNOSUS GG 1 CAPSULE. PO SCH (21:03)
[2020-03-22] MEDS: TAMSULOSIN 0.4 MG CAP.ER.24H. PO SCH (21:03)
[2020-03-23 03:03] VITALS: BP 129/77
[2020-03-23] MEDS: IV NORMAL SALINE 1000ML BAG 1,000 ML IV SCH (04:29)
[2020-03-23 04:31] LABS: CALCIUM 7.2 mg/dL (8.5-10.1); CREATININE 2.4 mg/dL (0.7-1.3); GFR 29.4; POTASSIUM 4.3 mmol/L (3.5-5.1)
[2020-03-23] MEDS: PIPERACILLIN/TAZOBACTAM 3.375 GM in IV NORMAL SALINE 50ML 50 ML IV SCH ×3 (06:32→17:41)
[2020-03-23 07:00] VITALS: BP 147/82
[2020-03-23] MEDS: INSULIN LISPRO 300 UNITS/3 ML VIAL. SQ SCH ×3 (08:00→16:20)
--- NOTE | 2020-03-23 08:10 | PDOC ---
Infectious Disease Note Subjective Subjective pt is feeling better ROS ROS no n/v/d/ Vital Sign Vital Signs Vital Signs Date Time Temp Pulse Resp B/P (MAP) Pulse Ox O2 Delivery O2 Flow Rate FiO2 03/23/20 07:00 98.1 89 18 147/82 (103) 99 Room Air 98.1 03/22/20 10:14 2.0 Physical Exam PHYSICAL EXAM GENERAL: Alert and oriented gentleman, not in distress. VITAL SIGNS: Stable, afebrile. HEENT: NAD. NECK: Supple, no JVP, no lymphadenopathy. LUNGS: Clear. Decreased breath sounds. HEART: S1, S2 regular. No gallop or murmur. ABDOMEN: Soft, nontender, no organomegaly. EXTREMITIES: No edema, cyanosis. SKIN: Unremarkable. The patient does have a Kumar catheter in place as he had a retention. Also, the chest tube fluid is straw colored. Labs Lab Laboratory Tests Test 03/22/20 10:00 03/22/20 11:51 03/22/20 16:55 03/22/20 20:47 Body Fluid Source Pleural Body Fluid Color Green Body Fluid Clarity Turbid Body Fluid pH 6.38 Body Fluid Nucleated Cells 066087 /cmm (Not Body Fluid Total RBCs Counted 1025 /cmm (Not Established) Glucose (Fingerstick) 67 mg/dL (70-99) 108 mg/dL (70-99) 153 mg/dL (70-99) Test 03/23/20 04:10 03/23/20 06:53 Sodium Level 143 mmol/L (136-145) Potassium Level 4.3 mmol/L (3.5-5.1) Chloride Level 109 mmol/L (98-107) Carbon Dioxide Level 28 mmol/L (21-32) Anion Gap 6 (6-14) Blood Urea Nitrogen 22 mg/dL (8-26) Creatinine 2.4 mg/dL (0.7-1.3) Estimated GFR (Cockcroft-Gault) 29.4 Glucose Level 82 mg/dL (70-99) Calcium Level 7.2 mg/dL (8.5-10.1) Glucose (Fingerstick) 77 mg/dL (70-99) Micro Microbiology 03/19/20 AFB Specimen Processing Tissue - Final, Resulted 03/19/20 Acid Fast Bacilli Culture, Resulted Pending 03/19/20 Gram Stain - Final, Resulted 03/19/20 Blood Culture - Preliminary, Resulted NO GROWTH AFTER 3 DAYS Objective Assessment IMPRESSION: 1. Loculated right-sided pleural effusion, status post chest tube drainage. Pleural fluid analysis does not make sense. He has more glucose in the blood. LDH is very high and the pH is very low and the cell count is really high. 2. Renal insufficiency. 3. Diabetes. Plan Plan of Care add chylomicron to fluid fluid looks like lymphatic fluid cont antibiotics ASHLEIGH SANFORD MD Mar 23, 2020 08:10
--- NOTE | 2020-03-23 08:58 | RAD ---
EXAM: AP View of the chest DATE: 03/23/2020 9:00 AM INDICATION: empyema COMPARISON: 03/22/2020 FINDINGS/ IMPRESSION: 2 right chest tubes are in stable position. Right-sided airspace opacities are essentially unchanged accounting for differences in projection/technique although mild increase in right pleural effusion. No pneumothorax. Electronically signed by: Joo Slaughter MD (03/23/2020 8:55 AM) [id number]
[2020-03-23] MEDS: LACTOBACILLUS RHAMNOSUS GG 1 CAPSULE. PO SCH ×2 (08:59→21:32)
[2020-03-23] MEDS: INSULIN GLARGINE SYRINGE. SQ SCH ×2 (09:03→21:33)
--- NOTE | 2020-03-23 09:35 | PDOC ---
PULMONARY PROGRESS NOTES DATE: 03/23/20 TIME: 09:31 Subjective purulent drainage from ct output 1200 cc initially, not much in 2 days s/p second chest tube 03/22, 60 cc came out Vitals Vital Signs Date Time Temp Pulse Resp B/P (MAP) Pulse Ox O2 Delivery O2 Flow Rate FiO2 03/23/20 07:00 98.1 89 18 147/82 (103) 99 Room Air 98.1 03/22/20 10:14 2.0 General: Alert, No acute distress Lungs: Other (decrease bs right) Cardiovascular: S1 Abdomen: Soft Neuro Exam: Alert Extremities: No Edema Skin: Warm Labs Laboratory Tests Test 03/21/20 12:05 03/21/20 16:55 03/21/20 20:49 03/22/20 04:20 Glucose (Fingerstick) 97 mg/dL (70-99) 90 mg/dL (70-99) 130 mg/dL (70-99) Sodium Level 141 mmol/L (136-145) Potassium Level 4.5 mmol/L (3.5-5.1) Chloride Level 107 mmol/L (98-107) Carbon Dioxide Level 26 mmol/L (21-32) Anion Gap 8 (6-14) Blood Urea Nitrogen 23 mg/dL (8-26) Creatinine 2.2 mg/dL (0.7-1.3) Estimated GFR (Cockcroft-Gault) 32.5 Glucose Level 78 mg/dL (70-99) Calcium Level 7.3 mg/dL (8.5-10.1) Test 03/22/20 07:05 03/22/20 10:00 03/22/20 11:51 03/22/20 16:55 Glucose (Fingerstick) 70 mg/dL (70-99) 67 mg/dL (70-99) 108 mg/dL (70-99) Body Fluid Source Pleural Body Fluid Color Green Body Fluid Clarity Turbid Body Fluid pH 6.38 Body Fluid Nucleated Cells 169976 /cmm (Not Body Fluid Total RBCs Counted 1025 /cmm (Not Established) Test 03/22/20 20:47 03/23/20 04:10 03/23/20 06:53 Glucose (Fingerstick) 153 mg/dL (70-99) 77 mg/dL (70-99) Sodium Level 143 mmol/L (136-145) Potassium Level 4.3 mmol/L (3.5-5.1) Chloride Level 109 mmol/L (98-107) Carbon Dioxide Level 28 mmol/L (21-32) Anion Gap 6 (6-14) Blood Urea Nitrogen 22 mg/dL (8-26) Creatinine 2.4 mg/dL (0.7-1.3) Estimated GFR (Cockcroft-Gault) 29.4 Glucose Level 82 mg/dL (70-99) Calcium Level 7.2 mg/dL (8.5-10.1) Laboratory Tests Test 03/22/20 10:00 03/22/20 11:51 03/22/20 16:55 03/22/20 20:47 Body Fluid Source Pleural Body Fluid Color Green Body Fluid Clarity Turbid Body Fluid pH 6.38 Body Fluid Nucleated Cells 682627 /cmm (Not Body Fluid Total RBCs Counted 1025 /cmm (Not Established) Glucose (Fingerstick) 67 mg/dL (70-99) 108 mg/dL (70-99) 153 mg/dL (70-99) Test 03/23/20 04:10 03/23/20 06:53 Sodium Level 143 mmol/L (136-145) Potassium Level 4.3 mmol/L (3.5-5.1) Chloride Level 109 mmol/L (98-107) Carbon Dioxide Level 28 mmol/L (21-32) Anion Gap 6 (6-14) Blood Urea Nitrogen 22 mg/dL (8-26) Creatinine 2.4 mg/dL (0.7-1.3) Estimated GFR (Cockcroft-Gault) 29.4 Glucose Level 82 mg/dL (70-99) Calcium Level 7.2 mg/dL (8.5-10.1) Glucose (Fingerstick) 77 mg/dL (70-99) Medications Active Scripts Medications Dose Route/Sig Max Daily Dose Days Date Category Oxycodone Hcl Immed.release (Oxycodone Hcl) 5 Mg Tablet 5 Mg PO PRN Q6HRS PRN 02/26/17 Rx Glucophage (Metformin Hcl) 1,000 Mg Tablet 1,000 Mg PO BIDWMEALS 30 02/26/17 Rx Amaryl (Glimepiride) 2 Mg Tablet 2 Mg PO DAILY 30 02/26/17 Rx Comments cxr 03/23 improving infiltrates right Impression . 1. Abnormal CT chest with multi-loculated right sided pleural-effusions along with mediastinal and right hilar adenopathy and narrowing of the right mainstem bronchus. He has another pocket of density in the left lung as well. The patient has lost weight, loss of appetite and came in with chest wall pain. Differential diagnosis would include: A. Empyema with reactive adenopathy. B. less likely malignancy. C. less likely TB pleuritis. 2. Acute kidney injury. 3. Hyponatremia. 4. Anemia of chronic disease. 5. Hyperglycemia. Plan . RECOMMENDATIONS: 1. s/p right chest tubes CT-guided . vita pus . PH 5.4 ? reliable. s/p second chest tube 03/22 , 60 cc came out. Not much drainage from both chest tubes in last 24 hrs 2. f/u cxr.improving. CT chest 03/21 reviewed. 3. will remove first chest tube today 4. Renal recommendations. 5. Monitor sodium. 6. TB QuantiFERON test. 7. D-dimer is high, related to an empyema or malignancy. Neg v. Dopplers. 8. Monitoring of glucose per PCP. 9. Discussed with RN 10. Abx per CLAYTON LEIJA MD Mar 23, 2020 09:35
[2020-03-23 11:02] VITALS: BP 122/73
[2020-03-23] MEDS: DRONABINOL 2.5 MG CAPSULE. PO SCH ×2 (12:33→16:52)
--- NOTE | 2020-03-23 14:23 | PDOC ---
Renal-Progress Notes Subjective Notes Notes WEAK History of Present Illness Hx of present illness NO CHANGE Vitals Vitals Vital Signs Date Time Temp Pulse Resp B/P (MAP) Pulse Ox O2 Delivery O2 Flow Rate FiO2 03/23/20 11:02 98.0 81 18 122/73 (89) 96 Room Air 98.0 03/22/20 10:14 2.0 Weight Weight [ ] I.O. Intake and Output Intake and Output 03/23/20 07:00 Intake Total 180 ml Output Total 2825 ml Balance -2645 ml Intake Oral 180 ml Output Urine Total 2725 ml Chest Tube Drainage Total 100 ml Labs Labs Laboratory Tests Test 03/22/20 16:55 03/22/20 20:47 03/23/20 04:10 03/23/20 06:53 Glucose (Fingerstick) 108 mg/dL (70-99) 153 mg/dL (70-99) 77 mg/dL (70-99) Sodium Level 143 mmol/L (136-145) Potassium Level 4.3 mmol/L (3.5-5.1) Chloride Level 109 mmol/L (98-107) Carbon Dioxide Level 28 mmol/L (21-32) Anion Gap 6 (6-14) Blood Urea Nitrogen 22 mg/dL (8-26) Creatinine 2.4 mg/dL (0.7-1.3) Estimated GFR (Cockcroft-Gault) 29.4 Glucose Level 82 mg/dL (70-99) Calcium Level 7.2 mg/dL (8.5-10.1) Test 03/23/20 11:33 Glucose (Fingerstick) 95 mg/dL (70-99) Micro Micro Microbiology 03/22/20 Gram Stain - Final, Resulted 03/22/20 Aerobic and Anaerobic Culture - Preliminary, Resulted 03/19/20 Blood Culture - Preliminary, Resulted NO GROWTH AFTER 4 DAYS Review of Systems Constitutional: yes: weakness, alert, oriented Ears/Nose/Throat: Yes: no symptom reported Eyes: Yes: no symptom reported Pulmonary: Yes dyspnea Cardiovascular: Yes no symptom reported Gastrointestional: Yes: nausea Genitourinary: Yes: no symptom reported Musculoskeletal: Yes: muscle pain, muscle stiffness Skin: Yes no symptom reported Psychiatric/Neurological: Yes: no symptom reported Endocrine: Yes: no symptom reported Hematologic/Lymphatic: Yes: no symptom reported Physical Exam General Appearance: no apparent distress Skin: warm Respiratory: decreased breath sounds Heart: S1S2, RRR Abdomen: soft, bowel sounds present Genitourinary: bladder flat, epps catheter Extremities: pulses present, no edema Neurology: alert, oriented Assessment Assessment IMP URINARY RETENTION-1.8 LITERS OUT THIS AM AFTER NO MUCH OVERNIGHT-EPPS APPEARS POSITIONAL ARSLAN-IMPROVED WITH CR DOWN TO 2.4 FROM PEAK OF 3.4 CKD STAGE 3 WITH CR OF 1.5-1.6 EMPYEMA WITH CHEST ADENOPATHY PLEURAL EFFUSION HYPONATREMIA DUE TO HYPERGLYCEMIA ANEMIA OF CHRONIC DISEASE PLAN CHEST DRAINS HYDRATION STARTED FLOMAX CONTROL BG' RULING OUT TB D/W PULMONARY WILL FOLLOW SANJAY CAMPA MD Mar 23, 2020 14:23
[2020-03-23 14:58] VITALS: BP 133/81
--- NOTE | 2020-03-23 15:07 | PATHOLOGY ---
Note [facility] Accession Number: [id number] TESTS RESULT FLAG UNITS REF RANGE LAB Clinician Provided Cytology Information No. of containers..01 Other (Miscellaneous) Source: RT PLEURAL FLUID DIAGNOSIS: RT PLEURAL FLUID NEGATIVE FOR MALIGNANT EPITHELIAL CELLS. REACTIVE MESOTHELIAL CELLS ARE PRESENT. THIS INTERPRETATION INCLUDES EVALUATION OF A CELL BLOCK. VERY RARE MESOTHELIAL CELLS WITH REACTIVE AND DEGENERATIVE CHANGES ARE PRESENT AMONGST ABUNDANT ACUTE INFLAMMATORY CELLS, NECROINFLAMMATORY AND FIBRINOUS DEBRIS AND RED BLOOD CELLS. PROPERLY CONTROLLED IMMUNOHISTOCHEMICAL STAINS AND A SPECIAL STAIN ARE PERFORMED ON THE FORMALIN FIXED CELL BLOCK. FFCB: CALRETININ - VERY RARE STAINING CELLS; CD68 - VERY RARE HISTIOCYTES; DAYA-EP4 - NON-REACTIVE; GMS - HIGHLIGHTS BACTERIA, NEGATIVE OR FUNGAL ORGANISMS. CORRELATION WITH CLINICAL HISTORY, ADDITIONAL LABORATORY DATA AND RADIOGRAPHIC FINDINGS IS REQUIRED. Pathologist ICD10: 02 J90 Signed out by: Ebony Rod MD, Pathologist NPI- [id number] Performed by: Mira Nick, Command And Control Specialist ([facility]) Gross description: 01 10ML, MILKY GRIFFITHS, 1 TP 1 CHRIS /ANH 03/21/2020 1735 [facility] FLAG LEGEND: L-Low Normal,H-High Normal,LL-Alert Low,HH-Alert High <-Panic Low,>-Panic High,A-Abnormal,AA-Critical Abnormal Performed at: [facility] [address] [place] [address] Miguel Gupta MD, [address] [place] [address] [facility] [address] [address] Augustus Angeles MD, Specimen Comment: A courtesy copy of this report has been sent to [phone] Specimen Comment: [id number] Specimen Comment: Report sent to / DR VALERIO Performed at: 01 [facility] [address] [id number] MD Miguel Gupta MD Phone: [phone]
--- NOTE | 2020-03-23 15:07 | PATHOLOGY ---
Note [facility] Accession Number: [id number] TESTS RESULT FLAG UNITS REF RANGE LAB Clinician Provided Cytology Information No. of containers..01 Other (Miscellaneous) Source: RIGHT PLEURAL FLUID DIAGNOSIS: RIGHT PLEURAL FLUID NEGATIVE FOR MALIGNANT EPITHELIAL CELLS. REACTIVE MESOTHELIAL CELLS ARE PRESENT. THIS INTERPRETATION INCLUDES EVALUATION OF A CELL BLOCK. VERY RARE MESOTHELIAL CELLS WITH REACTIVE AND DEGENERATIVE CHANGES ARE PRESENT AMONGST ABUNDANT ACUTE INFLAMMATORY CELLS, NECROINFLAMMATORY AND FIBRINOUS DEBRIS AND RED BLOOD CELLS. PLEASE SEE ALSO THE PREVIOUS RIGHT PLEURAL FLUID ([phone]). CORRELATION WITH CLINICAL HISTORY, ADDITIONAL LABORATORY DATA AND RADIOGRAPHIC FINDINGS IS REQUIRED. Pathologist ICD10: 02 J90 Signed out by: Ebony Rod MD, Pathologist NPI- [id number] Performed by: Mira Nick, Hose Maker ([facility]) Gross description: 35ML, MILKY GREEN, 1 TP 1 CB /LCS 03/22/2020 1701 [facility] FLAG LEGEND: L-Low Normal,H-High Normal,LL-Alert Low,HH-Alert High <-Panic Low,>-Panic High,A-Abnormal,AA-Critical Abnormal Performed at: [facility] [address] [place] [address] [address] [place] [address] Miguel Gupta MD, EL[facility] [address] [address] Augustus Angeles MD, Specimen Comment: A courtesy copy of this report has been sent to [phone] Specimen Comment: [id number] Specimen Comment: Report sent to / DR VALERIO Specimen Comment: A duplicate report has been generated due to demographic updates. Performed at: [address], [place], [place] [id number] MD Miguel Gupta MD Phone: [phone]
--- NOTE | 2020-03-23 16:16 | PDOC ---
PROGRESS NOTES Date of Service: DATE: 03/23/20 TIME: 16:13 Chief Complaint Chief Complaint Assessment/Plan Multiloculated right-sided pleural effusion Mediastinal and right hilar adenopathy Hyponatremia Acute renal failure secondary to most likely vasomotor nephropathy and post renal component given urinary retention Diabetes mellitus type 2 uncontrolled Anemia of chronic disease Plan tube placed and draining purulent material will probably instill tpa as per systems development consultant. Broad-spectrum antibiotics follow QuantiFERON test Nephrology consultation appreciated will give albumin and lasix and follow urinary output D-dimer is high we will continue to monitor his respiratory status unlikely to have benefit from a VQ scan Insulin therapy for better glycemic control Further recommendations based on the clinical course History of Present Illness History of Present Illness Per nursing staff, no acute events overnight. Patient denies any pain. He is curious how much longer his stay will be in the hospital. Vitals Vitals Vital Signs Date Time Temp Pulse Resp B/P (MAP) Pulse Ox O2 Delivery O2 Flow Rate FiO2 03/23/20 14:58 98.7 76 16 133/81 (98) 96 Room Air 98.7 03/22/20 10:14 2.0 Physical Exam Physical Exam GENERAL: Alert and oriented gentleman, not in distress. VITAL SIGNS: Stable, afebrile. HEENT: NAD. NECK: Supple, no JVP, no lymphadenopathy. LUNGS: Clear. Decreased breath sounds. HEART: S1, S2 regular. No gallop or murmur. ABDOMEN: Soft, nontender, no organomegaly. EXTREMITIES: No edema, cyanosis. SKIN: Unremarkable. The patient does have a Kumar catheter in place as he had a retention. Also, the chest tube fluid is straw colored. General: Alert, No acute distress Heart: Regular rate, Normal S1, Normal S2 Lungs: Clear, Other (decrease bs right, chest tube in place) Abdomen: Soft, No tenderness Extremities: No clubbing, No edema Skin: No rashes, No breakdown Labs LABS Laboratory Tests Test 03/22/20 16:55 03/22/20 20:47 03/23/20 04:10 03/23/20 06:53 Glucose (Fingerstick) 108 mg/dL (70-99) 153 mg/dL (70-99) 77 mg/dL (70-99) Sodium Level 143 mmol/L (136-145) Potassium Level 4.3 mmol/L (3.5-5.1) Chloride Level 109 mmol/L (98-107) Carbon Dioxide Level 28 mmol/L (21-32) Anion Gap 6 (6-14) Blood Urea Nitrogen 22 mg/dL (8-26) Creatinine 2.4 mg/dL (0.7-1.3) Estimated GFR (Cockcroft-Gault) 29.4 Glucose Level 82 mg/dL (70-99) Calcium Level 7.2 mg/dL (8.5-10.1) Test 03/23/20 11:33 Glucose (Fingerstick) 95 mg/dL (70-99) Review of Systems Review of Systems Unable to obtain complete review of systems due to language. Assessment and Plan Assessmemt and Plan Plan: Continue current antibiotics. Will follow ID, pulmonology, nephrology recommendations. Comment Review of Relevant I have reviewed the following items ammon (where applicable) has been applied. Labs Laboratory Tests Test 03/21/20 16:55 03/21/20 20:49 03/22/20 04:20 03/22/20 07:05 Glucose (Fingerstick) 90 mg/dL (70-99) 130 mg/dL (70-99) 70 mg/dL (70-99) Sodium Level 141 mmol/L (136-145) Potassium Level 4.5 mmol/L (3.5-5.1) Chloride Level 107 mmol/L (98-107) Carbon Dioxide Level 26 mmol/L (21-32) Anion Gap 8 (6-14) Blood Urea Nitrogen 23 mg/dL (8-26) Creatinine 2.2 mg/dL (0.7-1.3) Estimated GFR (Cockcroft-Gault) 32.5 Glucose Level 78 mg/dL (70-99) Calcium Level 7.3 mg/dL (8.5-10.1) Test 03/22/20 10:00 03/22/20 11:51 03/22/20 16:55 03/22/20 20:47 Body Fluid Source Pleural Body Fluid Color Green Body Fluid Clarity Turbid Body Fluid pH 6.38 Body Fluid Nucleated Cells [id number] /cmm (Not Body Fluid Total RBCs Counted 1025 /cmm (Not Established) Glucose (Fingerstick) 67 mg/dL (70-99) 108 mg/dL (70-99) 153 mg/dL (70-99) Test 03/23/20 04:10 03/23/20 06:53 03/23/20 11:33 Sodium Level 143 mmol/L (136-145) Potassium Level 4.3 mmol/L (3.5-5.1) Chloride Level 109 mmol/L (98-107) Carbon Dioxide Level 28 mmol/L (21-32) Anion Gap 6 (6-14) Blood Urea Nitrogen 22 mg/dL (8-26) Creatinine 2.4 mg/dL (0.7-1.3) Estimated GFR (Cockcroft-Gault) 29.4 Glucose Level 82 mg/dL (70-99) Calcium Level 7.2 mg/dL (8.5-10.1) Glucose (Fingerstick) 77 mg/dL (70-99) 95 mg/dL (70-99) Laboratory Tests Test 03/22/20 16:55 03/22/20 20:47 03/23/20 04:10 03/23/20 06:53 Glucose (Fingerstick) 108 mg/dL (70-99) 153 mg/dL (70-99) 77 mg/dL (70-99) Sodium Level 143 mmol/L (136-145) Potassium Level 4.3 mmol/L (3.5-5.1) Chloride Level 109 mmol/L (98-107) Carbon Dioxide Level 28 mmol/L (21-32) Anion Gap 6 (6-14) Blood Urea Nitrogen 22 mg/dL (8-26) Creatinine 2.4 mg/dL (0.7-1.3) Estimated GFR (Cockcroft-Gault) 29.4 Glucose Level 82 mg/dL (70-99) Calcium Level 7.2 mg/dL (8.5-10.1) Test 03/23/20 11:33 Glucose (Fingerstick) 95 mg/dL (70-99) Microbiology 03/22/20 Gram Stain - Final, Resulted 03/22/20 Aerobic and Anaerobic Culture - Preliminary, Resulted 03/19/20 Blood Culture - Preliminary, Resulted NO GROWTH AFTER 4 DAYS Medications Current Medications Sodium Chloride 1,000 ml @ 1,000 mls/hr 1X ONCE IV Last administered on 03/18/20at 23:48; Start 03/18/20 at 23:45; Stop 03/19/20 at 00:44; Status DC Piperacillin Sod/ Tazobactam Sod 3.375 gm/Sodium Chloride 50 ml @ 100 mls/hr 1X ONCE IV Last administered on 03/19/20at 02:56; Start 03/19/20 at 02:30; Stop 03/19/20 at 02:59; Status DC Insulin Human Regular (HumuLIN R VIAL) 8 unit 1X ONCE IV Last administered on 03/19/20at 04:42; Start 03/19/20 at 04:15; Stop 03/19/20 at 04:35; Status DC Sodium Chloride 1,000 ml @ 100 mls/hr Q10H IV Last administered on 03/20/20at 09:23; Start 03/19/20 at 08:22; Stop 03/20/20 at 13:35; Status DC Ondansetron HCl (Zofran) 4 mg PRN Q4HRS PRN IV NAUSEA/VOMITING; Start 03/19/20 at 08:30 Zolpidem Tartrate (Ambien) 5 mg PRN QHS PRN PO INSOMNIA; Start 03/19/20 at 08:30 Acetaminophen (Tylenol) 650 mg PRN Q4HRS PRN PO TEMP OVER 100.4F OR MILD PAIN; Start 03/19/20 at 08:30 Diphenhydramine HCl (Benadryl) 25 mg PRN Q4HRS PRN IVP ITCHING; Start 03/19/20 at 08:30 Albuterol Sulfate (Ventolin Neb Soln) 2.5 mg PRN Q4HRS PRN NEB SHORTNESS OF BREATH; Start 03/19/20 at 08:30 Guaifenesin (Robitussin) 200 mg PRN Q4HRS PRN PO COUGH; Start 03/19/20 at 08:30 Lorazepam (Ativan) 0.5 mg PRN Q4HRS PRN PO ANXIETY / AGITATION; Start 03/19/20 at 08:30 Enoxaparin Sodium (Lovenox 40mg Syringe) 40 mg Q24H SQ ; Start 03/19/20 at 08:30; Status UNV Oxycodone HCl (Roxicodone) 5 mg PRN Q6HRS PRN PO MODERATE-SEVERE PAIN Last administered on 03/19/20at 22:04; Start 03/19/20 at 08:30 Piperacillin Sod/ Tazobactam Sod 3.375 gm/Sodium Chloride 50 ml @ 100 mls/hr Q6HRS IV Last administered on 03/23/20at 12:33; Start 03/19/20 at 12:00 Insulin Human Lispro (HumaLOG) 0-9 UNITS TIDWMEALS SQ ; Start 03/19/20 at 12:00; Stop 03/19/20 at 08:36; Status DC Dextrose (Dextrose 50%-Water Syringe) 12.5 gm PRN Q15MIN PRN IV SEE COMMENTS; Start 03/19/20 at 08:30 Insulin Glargine (Lantus Syringe) 10 unit BID SQ Last administered on 03/20/20at 09:22; Start 03/19/20 at 09:00; Stop 03/20/20 at 21:19; Status DC Insulin Human Lispro (HumaLOG) 0-9 UNITS TIDWMEALS SQ Last administered on 03/20/20at 12:16; Start 03/19/20 at 08:45 Enoxaparin Sodium (Lovenox 30mg Syringe) 30 mg Q24H SQ ; Start 03/19/20 at 09:00; Stop 03/20/20 at 08:51; Status DC Lidocaine HCl (Buffered Lidocaine 1%) 12 ml 1X ONCE INJ ; Start 03/19/20 at 11:00; Stop 03/19/20 at 11:01; Status DC Lidocaine HCl (Lidocaine 1% 20ml Vial) 20 ml STK-MED ONCE .ROUTE ; Start 03/19/20 at 10:53; Stop 03/19/20 at 10:53; Status DC Insulin Human Lispro (HumaLOG) 5 units 1X ONCE SQ Last administered on 03/19/20at 12:51; Start 03/19/20 at 13:00; Stop 03/19/20 at 13:01; Status DC Insulin Glargine (Lantus Syringe) 10 unit BID SQ Last administered on 03/23/20at 09:03; Start 03/20/20 at 21:30 Albumin Human 100 ml @ 100 mls/hr 1X ONCE IV Last administered on 03/21/20at 11:58; Start 03/21/20 at 10:30; Stop 03/21/20 at 11:29; Status DC Furosemide (Lasix) 20 mg 1X ONCE IVP Last administered on 03/21/20at 11:57; Start 03/21/20 at 10:30; Stop 03/21/20 at 10:33; Status DC Sodium Chloride 1,000 ml @ 75 mls/hr [id number] IV Last administered on 03/23/20at 04:29; Start 03/21/20 at 12:45 Tamsulosin HCl (Flomax) 0.4 mg QHS PO Last administered on 03/22/20at 21:03; Start 03/21/20 at 21:00 Lidocaine HCl (Buffered Lidocaine 1%) 3 ml STK-MED ONCE .ROUTE ; Start 03/22/20 at 09:39; Stop 03/22/20 at 09:39; Status DC Midazolam HCl (Versed) 2 mg STK-MED ONCE .ROUTE ; Start 03/22/20 at 09:43; Stop 03/22/20 at 09:44; Status DC Fentanyl Citrate (Fentanyl 2ml Vial) 100 mcg STK-MED ONCE .ROUTE ; Start 03/22/20 at 09:43; Stop 03/22/20 at 09:44; Status DC Lidocaine HCl (Buffered Lidocaine 1%) 3 ml 1X ONCE IJ Last administered on 03/22/20at 10:15; Start 03/22/20 at 09:45; Stop 03/22/20 at 09:48; Status DC Midazolam HCl (Versed) 2 mg 1X ONCE IV Last administered on 03/22/20at 10:14; Start 03/22/20 at 09:45; Stop 03/22/20 at 09:48; Status DC Fentanyl Citrate (Fentanyl 2ml Vial) 100 mcg 1X ONCE IV Last administered on 03/22/20at 10:14; Start 03/22/20 at 09:45; Stop 03/22/20 at 09:48; Status DC Dronabinol (Marinol) 2.5 mg BIDACLD PO Last administered on 03/23/20at 12:33; Start 03/22/20 at 16:30 Tamsulosin HCl (Flomax) 0.4 mg DAILY PO ; Start 03/22/20 at 13:30; Stop 03/22/20 at 15:22; Status DC Lactobacillus Rhamnosus (Culturelle) 1 cap BID PO Last administered on 03/23/20at 08:59; Start 03/22/20 at 21:00 Active Scripts Active Oxycodone Hcl Immed.release (Oxycodone Hcl) 5 Mg Tablet 5 Mg PO PRN Q6HRS PRN Glucophage (Metformin Hcl) 1,000 Mg Tablet 1,000 Mg PO BIDWMEALS 30 Days Amaryl (Glimepiride) 2 Mg Tablet 2 Mg PO DAILY 30 Days Vitals/I & O Vital Sign - Last 24 Hours 03/22/20 03/22/20 03/22/20 03/23/20 19:28 20:00 22:48 03:03 Temp 97.4 97.7 97.7 97.4 97.7 97.7 Pulse 84 82 80 Resp 18 18 18 B/P (MAP) 116/73 (87) 126/74 (91) 129/77 (94) Pulse Ox 95 96 99 O2 Delivery Room Air Room Air Room Air Room Air 03/23/20 03/23/20 03/23/20 03/23/20 07:00 08:00 11:02 14:58 Temp 98.1 98.0 98.7 98.1 98.0 98.7 Pulse 89 81 76 Resp 18 18 16 B/P (MAP) 147/82 (103) 122/73 (89) 133/81 (98) Pulse Ox 99 96 96 O2 Delivery Room Air Room Air Room Air Room Air Intake and Output 03/22/20 03/22/20 03/23/20 15:00 23:00 07:00 Intake Total 0 ml 180 ml 0 ml Output Total 2300 ml 125 ml 400 ml Balance -2300 ml 55 ml -400 ml Justicifation of Admission Dx: Justifications for Admission: Justification of Admission Dx: Yes PENNY DELGADILLO MD Mar 23, 2020 16:16
[2020-03-23 19:13] VITALS: BP 109/72
[2020-03-23] MEDS: TAMSULOSIN 0.4 MG CAP.ER.24H. PO SCH (21:32)
[2020-03-23 22:33] VITALS: BP 142/82
[2020-03-24] MEDS: PIPERACILLIN/TAZOBACTAM 3.375 GM in IV NORMAL SALINE 50ML 50 ML IV SCH ×6 (00:35→23:20)
[2020-03-24 02:01] VITALS: BP 148/86
[2020-03-24] MEDS: IV NORMAL SALINE 1000ML BAG 1,000 ML IV SCH ×3 (04:37→22:20)
[2020-03-24 06:49] LABS: CALCIUM 7.1 mg/dL (8.5-10.1); CREATININE 2.3 mg/dL (0.7-1.3); GFR 30.9; POTASSIUM 3.9 mmol/L (3.5-5.1)
[2020-03-24 07:00] VITALS: BP 163/89
--- NOTE | 2020-03-24 07:49 | PDOC ---
Infectious Disease Note Subjective Subjective pt is feeling better ROS ROS no n/v/d/sob/fever Vital Sign Vital Signs Vital Signs Date Time Temp Pulse Resp B/P (MAP) Pulse Ox O2 Delivery O2 Flow Rate FiO2 03/24/20 02:01 98.3 77 18 148/86 (106) 97 Room Air 98.3 Physical Exam PHYSICAL EXAM GENERAL: Alert and oriented gentleman, not in distress. VITAL SIGNS: Stable, afebrile. HEENT: NAD. NECK: Supple, no JVP, no lymphadenopathy. LUNGS: Clear. Decreased breath sounds. HEART: S1, S2 regular. No gallop or murmur. ABDOMEN: Soft, nontender, no organomegaly. EXTREMITIES: No edema, cyanosis. SKIN: Unremarkable. The patient does have a Kumar catheter in place as he had a retention. Labs Lab Laboratory Tests Test 03/23/20 11:33 03/23/20 16:13 03/23/20 20:24 03/24/20 05:10 Glucose (Fingerstick) 95 mg/dL (70-99) 141 mg/dL (70-99) 186 mg/dL (70-99) Sodium Level 142 mmol/L (136-145) Potassium Level 3.9 mmol/L (3.5-5.1) Chloride Level 109 mmol/L (98-107) Carbon Dioxide Level 27 mmol/L (21-32) Anion Gap 6 (6-14) Blood Urea Nitrogen 22 mg/dL (8-26) Creatinine 2.3 mg/dL (0.7-1.3) Estimated GFR (Cockcroft-Gault) 30.9 Glucose Level 98 mg/dL (70-99) Calcium Level 7.1 mg/dL (8.5-10.1) Micro pleural fluid culture neg AFB neg Objective Assessment IMPRESSION: 1. Loculated right-sided pleural effusion, status post chest tube drainage. 2. Renal insufficiency. 3. Diabetes. Plan Plan of Care cont antibiotics once chest tube is removed, then d/c on po antibiotics ASHLEIGH SANFORD MD Mar 24, 2020 07:49
[2020-03-24] MEDS: INSULIN LISPRO 300 UNITS/3 ML VIAL. SQ SCH ×3 (08:00→17:00)
[2020-03-24] MEDS: LACTOBACILLUS RHAMNOSUS GG 1 CAPSULE. PO SCH ×2 (08:44→22:04)
[2020-03-24] MEDS: INSULIN GLARGINE SYRINGE. SQ SCH ×2 (08:49→22:07)
--- NOTE | 2020-03-24 10:21 | PDOC ---
PULMONARY PROGRESS NOTES DATE: 03/24/20 TIME: 10:17 Subjective S/P D/C posterior CT on 03/23/2020 Minimal drainage from remaining Chest tube remains on room air, a-febrile No cough or SOA Vitals Vital Signs Date Time Temp Pulse Resp B/P (MAP) Pulse Ox O2 Delivery O2 Flow Rate FiO2 03/24/20 07:00 97.7 78 18 163/89 (113) 98 Room Air 97.7 ROS: No Nausea, No Chest Pain, No Abdominal Pain, No Increase Cough General: Alert, No acute distress Lungs: Clear, Other (decrease bs right, chest tube in place) Cardiovascular: S1 Abdomen: Soft, Non-tender Neuro Exam: Alert Extremities: No Edema Skin: Warm Labs Laboratory Tests Test 03/22/20 11:51 03/22/20 16:55 03/22/20 20:47 03/23/20 04:10 Glucose (Fingerstick) 67 mg/dL (70-99) 108 mg/dL (70-99) 153 mg/dL (70-99) Sodium Level 143 mmol/L (136-145) Potassium Level 4.3 mmol/L (3.5-5.1) Chloride Level 109 mmol/L (98-107) Carbon Dioxide Level 28 mmol/L (21-32) Anion Gap 6 (6-14) Blood Urea Nitrogen 22 mg/dL (8-26) Creatinine 2.4 mg/dL (0.7-1.3) Estimated GFR (Cockcroft-Gault) 29.4 Glucose Level 82 mg/dL (70-99) Calcium Level 7.2 mg/dL (8.5-10.1) Test 03/23/20 06:53 03/23/20 11:33 03/23/20 16:13 03/23/20 20:24 Glucose (Fingerstick) 77 mg/dL (70-99) 95 mg/dL (70-99) 141 mg/dL (70-99) 186 mg/dL (70-99) Test 03/24/20 05:10 03/24/20 08:11 Sodium Level 142 mmol/L (136-145) Potassium Level 3.9 mmol/L (3.5-5.1) Chloride Level 109 mmol/L (98-107) Carbon Dioxide Level 27 mmol/L (21-32) Anion Gap 6 (6-14) Blood Urea Nitrogen 22 mg/dL (8-26) Creatinine 2.3 mg/dL (0.7-1.3) Estimated GFR (Cockcroft-Gault) 30.9 Glucose Level 98 mg/dL (70-99) Calcium Level 7.1 mg/dL (8.5-10.1) Glucose (Fingerstick) 64 mg/dL (70-99) Laboratory Tests Test 03/23/20 11:33 03/23/20 16:13 03/23/20 20:24 03/24/20 05:10 Glucose (Fingerstick) 95 mg/dL (70-99) 141 mg/dL (70-99) 186 mg/dL (70-99) Sodium Level 142 mmol/L (136-145) Potassium Level 3.9 mmol/L (3.5-5.1) Chloride Level 109 mmol/L (98-107) Carbon Dioxide Level 27 mmol/L (21-32) Anion Gap 6 (6-14) Blood Urea Nitrogen 22 mg/dL (8-26) Creatinine 2.3 mg/dL (0.7-1.3) Estimated GFR (Cockcroft-Gault) 30.9 Glucose Level 98 mg/dL (70-99) Calcium Level 7.1 mg/dL (8.5-10.1) Test 03/24/20 08:11 Glucose (Fingerstick) 64 mg/dL (70-99) Medications Active Scripts Medications Dose Route/Sig Max Daily Dose Days Date Category Oxycodone Hcl Immed.release (Oxycodone Hcl) 5 Mg Tablet 5 Mg PO PRN Q6HRS PRN 02/26/17 Rx Glucophage (Metformin Hcl) 1,000 Mg Tablet 1,000 Mg PO BIDWMEALS 30 02/26/17 Rx Amaryl (Glimepiride) 2 Mg Tablet 2 Mg PO DAILY 30 02/26/17 Rx Comments cxr 03/23 improving infiltrates right Impression . 1. Abnormal CT chest with multi-loculated right sided pleural-effusions along with mediastinal and right hilar adenopathy and narrowing of the right mainstem bronchus. He has another pocket of density in the left lung as well. The patient has lost weight, loss of appetite and came in with chest wall pain. Differential diagnosis would include: A. Empyema with reactive adenopathy.--- improving with CT B. less likely malignancy. C. less likely TB pleuritis. 2. Acute kidney injury. 3. Hyponatremia. 4. Anemia of chronic disease. 5. Hyperglycemia. Plan . RECOMMENDATIONS: Will obtain CT of chest today, plan to D/C remaining Chest tube in am if improved CT chest s/p right chest tubes CT-guided . vita pus . PH 5.4 ? reliable. s/p second chest tube 03/22 , 60 cc came out. Not much drainage from both chest tubes in last 24 hrs f/u cxr.improving. CT chest 03/21 reviewed. S/P D/C 1st chest tube Follow Renal recommendations--- cr remains the same TB QuantiFERON test D-dimer is high, related to an empyema or malignancy. Neg v. Dopplers. Monitoring of glucose per PCP. Abx per ID-- culture NGTD D/W CLAYTON JONES MD Mar 24, 2020 10:21
--- NOTE | 2020-03-24 10:53 | RAD ---
EXAM: CHEST 1 VIEW History: Empyema COMPARISON: 03/23/2020 TECHNIQUE: Single portable radiograph of the chest Findings/ impression: The cardiac silhouette is unremarkable. Right-sided pigtail catheter is again identified. The previously visualized pigtail catheter in the right lower lobe of the is not evident. Mild airspace opacity identified in the right lower lobe of the lung likely atelectasis or infiltrate. Electronically signed by: Epi De La Cruz MD (03/24/2020 10:51 AM) [id number]
[2020-03-24 11:00] VITALS: BP 137/79
--- NOTE | 2020-03-24 11:33 | PDOC ---
Renal-Progress Notes Subjective Notes Notes FEELING BETTER History of Present Illness Hx of present illness STABLE Vitals Vitals Vital Signs Date Time Temp Pulse Resp B/P (MAP) Pulse Ox O2 Delivery O2 Flow Rate FiO2 03/24/20 07:00 97.7 78 18 163/89 (113) 98 Room Air 97.7 Weight Weight [ ] I.O. Intake and Output Intake and Output 03/24/20 07:00 Intake Total 1410 ml Output Total 735 ml Balance 675 ml Intake Oral 1360 ml IV Total 50 ml Output Urine Total 550 ml Chest Tube Drainage Total 185 ml # Voids 1 # Bowel Movements 1 Labs Labs Laboratory Tests Test 03/23/20 11:33 03/23/20 16:13 03/23/20 20:24 03/24/20 05:10 Glucose (Fingerstick) 95 mg/dL (70-99) 141 mg/dL (70-99) 186 mg/dL (70-99) Sodium Level 142 mmol/L (136-145) Potassium Level 3.9 mmol/L (3.5-5.1) Chloride Level 109 mmol/L (98-107) Carbon Dioxide Level 27 mmol/L (21-32) Anion Gap 6 (6-14) Blood Urea Nitrogen 22 mg/dL (8-26) Creatinine 2.3 mg/dL (0.7-1.3) Estimated GFR (Cockcroft-Gault) 30.9 Glucose Level 98 mg/dL (70-99) Calcium Level 7.1 mg/dL (8.5-10.1) Test 03/24/20 08:11 03/24/20 11:27 Glucose (Fingerstick) 64 mg/dL (70-99) 83 mg/dL (70-99) Micro Micro Microbiology 03/22/20 Gram Stain - Final, Resulted 03/22/20 Aerobic and Anaerobic Culture - Preliminary, Resulted 03/19/20 Blood Culture - Final, Complete NO GROWTH AFTER 5 DAYS Review of Systems Constitutional: yes: weakness, alert, oriented Ears/Nose/Throat: Yes: no symptom reported Eyes: Yes: no symptom reported Pulmonary: Yes dyspnea Cardiovascular: Yes no symptom reported Gastrointestional: Yes: nausea Genitourinary: Yes: no symptom reported Musculoskeletal: Yes: muscle pain, muscle stiffness Skin: Yes no symptom reported Psychiatric/Neurological: Yes: no symptom reported Endocrine: Yes: no symptom reported Hematologic/Lymphatic: Yes: no symptom reported Physical Exam General Appearance: no apparent distress Skin: warm Respiratory: decreased breath sounds Heart: S1S2, RRR Abdomen: soft, bowel sounds present Genitourinary: bladder flat, epps catheter Extremities: pulses present, no edema Neurology: alert, oriented Assessment Assessment IMP URINARY RETENTION-1.8 LITERS OUT THIS AM AFTER NO MUCH OVERNIGHT-EPPS APPEARS POSITIONAL ARSLAN-IMPROVED WITH CR DOWN TO 2.4 FROM PEAK OF 3.4 CKD STAGE 3 WITH CR OF 1.5-1.6 EMPYEMA WITH CHEST ADENOPATHY PLEURAL EFFUSION HYPONATREMIA-RESOLVED HYPERGLYCEMIA-RESOLVED ANEMIA OF CHRONIC DISEASE PLAN CHEST DRAINS HYDRATION STARTED FLOMAX AVOID IRON DUE TO ACUTE INFECTION CONTROL BG' WILL FOLLOW SANJAY CAMPA MD Mar 24, 2020 11:32
[2020-03-24] MEDS: DRONABINOL 2.5 MG CAPSULE. PO SCH ×2 (12:25→17:28)
--- NOTE | 2020-03-24 12:34 | NUR ---
0600 zoysn not given from retail shift leader.
--- NOTE | 2020-03-24 12:44 | NUR ---
SS following up with discharge planning. SS reviewed pt chart and discussed with pt RN. Pt is currently on room air. One chest tube still in place. Pt is self pay. Discharge plan is to home when medically stable. SS will continue to follow for discharge planning.
--- NOTE | 2020-03-24 13:33 | NUR ---
0776 NS not hung pervious bag still running
--- NOTE | 2020-03-24 13:34 | RAD ---
EXAM: CT Chest without IV contrast INDICATION: Reason: follow up lung abcesses / Spl. Instructions: / History: TECHNIQUE: Multi-detector row CT images were acquired from the thoracic inlet through the upper abdomen without the use of IV contrast. Sagittal and coronal images were acquired from the transaxial data. All CT scans performed at this facility utilize dose optimization techniques as appropriate to the exam, including the following: Automated exposure control and adjustment of the mA and/or KV according to patient size (this includes techniques or standardized protocols for targeted exams where dose is indication/reason for exam). COMPARISON: Chest CT without IV contrast of 03/21/2020, chest x-ray of 03/24/2020 FINDINGS: The absence of IV contrast limits evaluation of soft tissue pathology. CARDIOVASCULAR: Nonspecific low density to the intracardiac chambers is a finding associated with anemia. MEDIASTINUM & LEE: No adenopathy with a normal mediastinal lymph nodes noted, including a 7 mm right lower paratracheal lymph node. Lack of IV contrast limits detailed assessment. LUNGS: In the periphery of the left upper lobe, a 2.7 x 2.4 cm area of consolidation demonstrates interval cavitation and now measures 2.8 x 2.3 cm, essentially unchanged. There are moderate dependent atelectatic changes in the bilateral lower lobes. Interlobular septal thickening is present in the right lung, affecting the right middle lobe and lower lobes the greatest extent. PLEURAL SPACE: No pneumothorax. Anterior right-sided drainage catheter remains present with interval evacuation (compared with the chest CT of 3 days ago) of the fluid collection in the anterior right chest abutting the mediastinum. There persists nodular thickening along the right pleural space and a small left pleural effusion remains present as well. Nodularity along the right pleural space is most conspicuous between the right middle and lower lobes abutting the thickened minor fissure where it measures 1.8 x 1.7 cm, compared with 1.6 x 1.4 cm previously. The pigtail drainage catheter in the posterior right chest has been removed. OSSEOUS & SOFT TISSUE: Unremarkable ABDOMEN: Included abdomen shows apparent slight decrease in perihepatic ascites. IMPRESSION: 1. Evacuated fluid collection in the anterior right chest that could represent an evacuated lung abscess. 2. Developing cavitation in the peripheral nodular opacity in the left upper lobe, compatible with necrotizing pneumonia in the appropriate clinical context. 3. There remain bilateral pleural effusions with associated atelectasis but no pneumothorax. Electronically signed by: Terrell Estrada MD (03/24/2020 1:31 PM) [id number]
[2020-03-24 14:45] VITALS: BP 151/85
--- NOTE | 2020-03-24 17:10 | PDOC ---
PROGRESS NOTES Date of Service: DATE: 03/24/20 TIME: 17:08 Chief Complaint Chief Complaint Assessment/Plan Multiloculated right-sided pleural effusion Mediastinal and right hilar adenopathy Hyponatremia Acute renal failure secondary to most likely vasomotor nephropathy and post renal component given urinary retention Diabetes mellitus type 2 uncontrolled Anemia of chronic disease Plan tube placed and draining purulent material will probably instill tpa as per strategic solutions consultant. Broad-spectrum antibiotics follow QuantiFERON test Nephrology consultation appreciated will give albumin and lasix and follow urinary output D-dimer is high we will continue to monitor his respiratory status unlikely to have benefit from a VQ scan Insulin therapy for better glycemic control Further recommendations based on the clinical course History of Present Illness History of Present Illness First chest tube removed. Patient admits to some incisional pain, controlled with medication. No complaints, no acute events overnight. Vitals Vitals Vital Signs Date Time Temp Pulse Resp B/P (MAP) Pulse Ox O2 Delivery O2 Flow Rate FiO2 03/24/20 14:45 98.0 77 18 151/85 (107) 99 Room Air 98.0 Physical Exam Physical Exam GENERAL: Alert and oriented gentleman, not in distress. VITAL SIGNS: Stable, afebrile. HEENT: NAD. NECK: Supple, no JVP, no lymphadenopathy. LUNGS: Clear. Decreased breath sounds. HEART: S1, S2 regular. No gallop or murmur. ABDOMEN: Soft, nontender, no organomegaly. EXTREMITIES: No edema, cyanosis. SKIN: Unremarkable. The patient does have a Kumar catheter in place as he had a retention. General: Alert, No acute distress Heart: Regular rate, Normal S1, Normal S2 Lungs: Clear, Other (decrease bs right, chest tube in place) Abdomen: Soft, No tenderness Extremities: No clubbing, No edema Skin: No rashes, No breakdown Labs LABS Laboratory Tests Test 03/23/20 20:24 03/24/20 05:10 03/24/20 08:11 03/24/20 11:27 Glucose (Fingerstick) 186 mg/dL (70-99) 64 mg/dL (70-99) 83 mg/dL (70-99) Sodium Level 142 mmol/L (136-145) Potassium Level 3.9 mmol/L (3.5-5.1) Chloride Level 109 mmol/L (98-107) Carbon Dioxide Level 27 mmol/L (21-32) Anion Gap 6 (6-14) Blood Urea Nitrogen 22 mg/dL (8-26) Creatinine 2.3 mg/dL (0.7-1.3) Estimated GFR (Cockcroft-Gault) 30.9 Glucose Level 98 mg/dL (70-99) Calcium Level 7.1 mg/dL (8.5-10.1) Test 03/24/20 16:58 Glucose (Fingerstick) 107 mg/dL (70-99) Review of Systems Review of Systems Incisional pain. Denies any fever, nausea, diaphoresis. Assessment and Plan Assessmemt and Plan Loculated right-sided pleural effusion, empyema Plan:Plan: Continue current antibiotics. Will follow ID, pulmonology, nephrology recommendations. Cultures pending. Comment Review of Relevant I have reviewed the following items ammon (where applicable) has been applied. Labs Laboratory Tests Test 03/22/20 20:47 03/23/20 04:10 03/23/20 06:53 03/23/20 11:33 Glucose (Fingerstick) 153 mg/dL (70-99) 77 mg/dL (70-99) 95 mg/dL (70-99) Sodium Level 143 mmol/L (136-145) Potassium Level 4.3 mmol/L (3.5-5.1) Chloride Level 109 mmol/L (98-107) Carbon Dioxide Level 28 mmol/L (21-32) Anion Gap 6 (6-14) Blood Urea Nitrogen 22 mg/dL (8-26) Creatinine 2.4 mg/dL (0.7-1.3) Estimated GFR (Cockcroft-Gault) 29.4 Glucose Level 82 mg/dL (70-99) Calcium Level 7.2 mg/dL (8.5-10.1) Test 03/23/20 16:13 03/23/20 20:24 03/24/20 05:10 03/24/20 08:11 Glucose (Fingerstick) 141 mg/dL (70-99) 186 mg/dL (70-99) 64 mg/dL (70-99) Sodium Level 142 mmol/L (136-145) Potassium Level 3.9 mmol/L (3.5-5.1) Chloride Level 109 mmol/L (98-107) Carbon Dioxide Level 27 mmol/L (21-32) Anion Gap 6 (6-14) Blood Urea Nitrogen 22 mg/dL (8-26) Creatinine 2.3 mg/dL (0.7-1.3) Estimated GFR (Cockcroft-Gault) 30.9 Glucose Level 98 mg/dL (70-99) Calcium Level 7.1 mg/dL (8.5-10.1) Test 03/24/20 11:27 03/24/20 16:58 Glucose (Fingerstick) 83 mg/dL (70-99) 107 mg/dL (70-99) Laboratory Tests Test 03/23/20 20:24 03/24/20 05:10 03/24/20 08:11 03/24/20 11:27 Glucose (Fingerstick) 186 mg/dL (70-99) 64 mg/dL (70-99) 83 mg/dL (70-99) Sodium Level 142 mmol/L (136-145) Potassium Level 3.9 mmol/L (3.5-5.1) Chloride Level 109 mmol/L (98-107) Carbon Dioxide Level 27 mmol/L (21-32) Anion Gap 6 (6-14) Blood Urea Nitrogen 22 mg/dL (8-26) Creatinine 2.3 mg/dL (0.7-1.3) Estimated GFR (Cockcroft-Gault) 30.9 Glucose Level 98 mg/dL (70-99) Calcium Level 7.1 mg/dL (8.5-10.1) Test 03/24/20 16:58 Glucose (Fingerstick) 107 mg/dL (70-99) Microbiology 03/22/20 Gram Stain - Final, Resulted 03/22/20 Aerobic and Anaerobic Culture - Preliminary, Resulted 03/19/20 Blood Culture - Final, Complete NO GROWTH AFTER 5 DAYS Medications Current Medications Sodium Chloride 1,000 ml @ 1,000 mls/hr 1X ONCE IV Last administered on 03/18/20at 23:48; Start 03/18/20 at 23:45; Stop 03/19/20 at 00:44; Status DC Piperacillin Sod/ Tazobactam Sod 3.375 gm/Sodium Chloride 50 ml @ 100 mls/hr 1X ONCE IV Last administered on 03/19/20at 02:56; Start 03/19/20 at 02:30; Stop 03/19/20 at 02:59; Status DC Insulin Human Regular (HumuLIN R VIAL) 8 unit 1X ONCE IV Last administered on 03/19/20at 04:42; Start 03/19/20 at 04:15; Stop 03/19/20 at 04:35; Status DC Sodium Chloride 1,000 ml @ 100 mls/hr Q10H IV Last administered on 03/20/20at 09:23; Start 03/19/20 at 08:22; Stop 03/20/20 at 13:35; Status DC Ondansetron HCl (Zofran) 4 mg PRN Q4HRS PRN IV NAUSEA/VOMITING; Start 03/19/20 at 08:30 Zolpidem Tartrate (Ambien) 5 mg PRN QHS PRN PO INSOMNIA; Start 03/19/20 at 08:30 Acetaminophen (Tylenol) 650 mg PRN Q4HRS PRN PO TEMP OVER 100.4F OR MILD PAIN; Start 03/19/20 at 08:30 Diphenhydramine HCl (Benadryl) 25 mg PRN Q4HRS PRN IVP ITCHING; Start 03/19/20 at 08:30 Albuterol Sulfate (Ventolin Neb Soln) 2.5 mg PRN Q4HRS PRN NEB SHORTNESS OF BREATH; Start 03/19/20 at 08:30 Guaifenesin (Robitussin) 200 mg PRN Q4HRS PRN PO COUGH; Start 03/19/20 at 08:30 Lorazepam (Ativan) 0.5 mg PRN Q4HRS PRN PO ANXIETY / AGITATION; Start 03/19/20 at 08:30 Enoxaparin Sodium (Lovenox 40mg Syringe) 40 mg Q24H SQ ; Start 03/19/20 at 08:30; Status UNV Oxycodone HCl (Roxicodone) 5 mg PRN Q6HRS PRN PO MODERATE-SEVERE PAIN Last administered on 03/19/20at 22:04; Start 03/19/20 at 08:30 Piperacillin Sod/ Tazobactam Sod 3.375 gm/Sodium Chloride 50 ml @ 100 mls/hr Q6HRS IV Last administered on 03/24/20at 12:00; Start 03/19/20 at 12:00 Insulin Human Lispro (HumaLOG) 0-9 UNITS TIDWMEALS SQ ; Start 03/19/20 at 12:00; Stop 03/19/20 at 08:36; Status DC Dextrose (Dextrose 50%-Water Syringe) 12.5 gm PRN Q15MIN PRN IV SEE COMMENTS; Start 03/19/20 at 08:30 Insulin Glargine (Lantus Syringe) 10 unit BID SQ Last administered on 03/20/20at 09:22; Start 03/19/20 at 09:00; Stop 03/20/20 at 21:19; Status DC Insulin Human Lispro (HumaLOG) 0-9 UNITS TIDWMEALS SQ Last administered on 03/20/20at 12:16; Start 03/19/20 at 08:45 Enoxaparin Sodium (Lovenox 30mg Syringe) 30 mg Q24H SQ ; Start 03/19/20 at 09:00; Stop 03/20/20 at 08:51; Status DC Lidocaine HCl (Buffered Lidocaine 1%) 12 ml 1X ONCE INJ ; Start 03/19/20 at 11:00; Stop 03/19/20 at 11:01; Status DC Lidocaine HCl (Lidocaine 1% 20ml Vial) 20 ml STK-MED ONCE .ROUTE ; Start 03/19/20 at 10:53; Stop 03/19/20 at 10:53; Status DC Insulin Human Lispro (HumaLOG) 5 units 1X ONCE SQ Last administered on at 12:51; Start 03/19/20 at 13:00; Stop 03/19/20 at 13:01; Status DC Insulin Glargine (Lantus Syringe) 10 unit BID SQ Last administered on 03/24/20at 08:49; Start 03/20/20 at 21:30 Albumin Human 100 ml @ 100 mls/hr 1X ONCE IV Last administered on 03/21/20at 11:58; Start 03/21/20 at 10:30; Stop 03/21/20 at 11:29; Status DC Furosemide (Lasix) 20 mg 1X ONCE IVP Last administered on 03/21/20at 11:57; Start 03/21/20 at 10:30; Stop 03/21/20 at 10:33; Status DC Sodium Chloride 1,000 ml @ 75 mls/hr [id number] IV Last administered on 03/24/20at 04:37; Start 03/21/20 at 12:45 Tamsulosin HCl (Flomax) 0.4 mg QHS PO Last administered on 03/23/20at 21:32; Start 03/21/20 at 21:00 Lidocaine HCl (Buffered Lidocaine 1%) 3 ml STK-MED ONCE .ROUTE ; Start 03/22/20 at 09:39; Stop 03/22/20 at 09:39; Status DC Midazolam HCl (Versed) 2 mg STK-MED ONCE .ROUTE ; Start 03/22/20 at 09:43; Stop 03/22/20 at 09:44; Status DC Fentanyl Citrate (Fentanyl 2ml Vial) 100 mcg STK-MED ONCE .ROUTE ; Start 03/22/20 at 09:43; Stop 03/22/20 at 09:44; Status DC Lidocaine HCl (Buffered Lidocaine 1%) 3 ml 1X ONCE IJ Last administered on 03/22/20at 10:15; Start 03/22/20 at 09:45; Stop 03/22/20 at 09:48; Status DC Midazolam HCl (Versed) 2 mg 1X ONCE IV Last administered on 03/22/20at 10:14; Start 03/22/20 at 09:45; Stop 03/22/20 at 09:48; Status DC Fentanyl Citrate (Fentanyl 2ml Vial) 100 mcg 1X ONCE IV Last administered on 03/22/20at 10:14; Start 03/22/20 at 09:45; Stop 03/22/20 at 09:48; Status DC Dronabinol (Marinol) 2.5 mg BIDACLD PO Last administered on 03/24/20at 12:25; Start 03/22/20 at 16:30 Tamsulosin HCl (Flomax) 0.4 mg DAILY PO ; Start 03/22/20 at 13:30; Stop 03/22/20 at 15:22; Status DC Lactobacillus Rhamnosus (Culturelle) 1 cap BID PO Last administered on 03/24/20at 08:44; Start 03/22/20 at 21:00 Active Scripts Active Oxycodone Hcl Immed.release (Oxycodone Hcl) 5 Mg Tablet 5 Mg PO PRN Q6HRS PRN Glucophage (Metformin Hcl) 1,000 Mg Tablet 1,000 Mg PO BIDWMEALS 30 Days Amaryl (Glimepiride) 2 Mg Tablet 2 Mg PO DAILY 30 Days Vitals/I & O Vital Sign - Last 24 Hours 03/23/20 03/23/20 03/23/20 03/24/20 19:13 20:05 22:33 02:01 Temp 98.2 97.9 98.3 98.2 97.9 98.3 Pulse 80 76 77 Resp 16 16 18 B/P (MAP) 109/72 (84) 142/82 (102) 148/86 (106) Pulse Ox 97 97 97 O2 Delivery Room Air Room Air Room Air Room Air 03/24/20 03/24/20 03/24/20 07:00 11:00 14:45 Temp 97.7 97.8 98.0 97.7 97.8 98.0 Pulse 78 83 77 Resp 18 18 18 B/P (MAP) 163/89 (113) 137/79 (98) 151/85 (107) Pulse Ox 98 98 99 O2 Delivery Room Air Room Air Room Air Intake and Output 03/23/20 03/23/20 03/24/20 15:00 23:00 07:00 Intake Total 360 ml 600 ml 450 ml Output Total 100 ml 625 ml 10 ml Balance 260 ml -25 ml 440 ml Justicifation of Admission Dx: Justifications for Admission: Justification of Admission Dx: Yes PENNY DELGADILLO MD Mar 24, 2020 17:10
[2020-03-24 19:14] VITALS: BP 142/83
[2020-03-24] MEDS: TAMSULOSIN 0.4 MG CAP.ER.24H. PO SCH (22:04)
[2020-03-24 23:25] VITALS: BP 166/87
[2020-03-25 03:17] VITALS: BP 177/87
[2020-03-25 05:49] LABS: CALCIUM 7.2 mg/dL (8.5-10.1); CREATININE 2.3 mg/dL (0.7-1.3); GFR 30.9; POTASSIUM 3.9 mmol/L (3.5-5.1)
[2020-03-25] MEDS: PIPERACILLIN/TAZOBACTAM 3.375 GM in IV NORMAL SALINE 50ML 50 ML IV SCH ×2 (05:53→11:43)
[2020-03-25 07:00] VITALS: BP 163/84
[2020-03-25] MEDS: INSULIN LISPRO 300 UNITS/3 ML VIAL. SQ SCH ×2 (07:04→11:44)
--- NOTE | 2020-03-25 08:51 | PDOC ---
PULMONARY PROGRESS NOTES DATE: 03/25/20 TIME: 08:51 Subjective S/P D/C posterior CT on 03/23/[address] D/C today remains on room air, a-febrile No cough or SOA Vitals Vital Signs Date Time Temp Pulse Resp B/P (MAP) Pulse Ox O2 Delivery O2 Flow Rate FiO2 03/25/20 07:00 97.6 76 20 163/84 (110) 99 Room Air 97.6 ROS: No Nausea, No Chest Pain, No Abdominal Pain, No Increase Cough General: Alert, No acute distress Lungs: Clear, Other (decrease bs right, chest tube in place) Cardiovascular: S1 Abdomen: Soft, Non-tender Neuro Exam: Alert Extremities: No Edema Skin: Warm Labs Laboratory Tests Test 03/23/20 11:33 03/23/20 16:13 03/23/20 20:24 03/24/20 05:10 Glucose (Fingerstick) 95 mg/dL (70-99) 141 mg/dL (70-99) 186 mg/dL (70-99) Sodium Level 142 mmol/L (136-145) Potassium Level 3.9 mmol/L (3.5-5.1) Chloride Level 109 mmol/L (98-107) Carbon Dioxide Level 27 mmol/L (21-32) Anion Gap 6 (6-14) Blood Urea Nitrogen 22 mg/dL (8-26) Creatinine 2.3 mg/dL (0.7-1.3) Estimated GFR (Cockcroft-Gault) 30.9 Glucose Level 98 mg/dL (70-99) Calcium Level 7.1 mg/dL (8.5-10.1) Test 03/24/20 08:11 03/24/20 11:27 03/24/20 16:58 03/24/20 21:12 Glucose (Fingerstick) 64 mg/dL (70-99) 83 mg/dL (70-99) 107 mg/dL (70-99) 166 mg/dL (70-99) Test 03/25/20 05:00 03/25/20 06:58 Sodium Level 142 mmol/L (136-145) Potassium Level 3.9 mmol/L (3.5-5.1) Chloride Level 110 mmol/L (98-107) Carbon Dioxide Level 27 mmol/L (21-32) Anion Gap 5 (6-14) Blood Urea Nitrogen 19 mg/dL (8-26) Creatinine 2.3 mg/dL (0.7-1.3) Estimated GFR (Cockcroft-Gault) 30.9 Glucose Level 99 mg/dL (70-99) Calcium Level 7.2 mg/dL (8.5-10.1) Glucose (Fingerstick) 54 mg/dL (70-99) Laboratory Tests Test 03/24/20 11:27 03/24/20 16:58 03/24/20 21:12 03/25/20 05:00 Glucose (Fingerstick) 83 mg/dL (70-99) 107 mg/dL (70-99) 166 mg/dL (70-99) Sodium Level 142 mmol/L (136-145) Potassium Level 3.9 mmol/L (3.5-5.1) Chloride Level 110 mmol/L (98-107) Carbon Dioxide Level 27 mmol/L (21-32) Anion Gap 5 (6-14) Blood Urea Nitrogen 19 mg/dL (8-26) Creatinine 2.3 mg/dL (0.7-1.3) Estimated GFR (Cockcroft-Gault) 30.9 Glucose Level 99 mg/dL (70-99) Calcium Level 7.2 mg/dL (8.5-10.1) Test 03/25/20 06:58 Glucose (Fingerstick) 54 mg/dL (70-99) Medications Active Scripts Medications Dose Route/Sig Max Daily Dose Days Date Category Oxycodone Hcl Immed.release (Oxycodone Hcl) 5 Mg Tablet 5 Mg PO PRN Q6HRS PRN 02/26/17 Rx Glucophage (Metformin Hcl) 1,000 Mg Tablet 1,000 Mg PO BIDWMEALS 30 02/26/17 Rx Amaryl (Glimepiride) 2 Mg Tablet 2 Mg PO DAILY 30 02/26/17 Rx Comments CXR 03/25/2020 IMPRESSION: * Repeat demonstration of right-sided drain at the chest with hazy opacity within the right lung which could be a combination of the patient's known pleural fluid as well as adjacent airspace consolidation. Appears similar to one day prior. Impression . 1. Abnormal CT chest with multi-loculated right sided pleural-effusions along with mediastinal and right hilar adenopathy and narrowing of the right mainstem bronchus. He has another pocket of density in the left lung as well. The patient has lost weight, loss of appetite and came in with chest wall pain. Differential diagnosis would include: A. Empyema with reactive adenopathy.--- improving with CT-- now both CT D/C B. less likely malignancy. C. less likely TB pleuritis. 2. Acute kidney injury, CR stable at 2.3 -- CKD 3. Hyponatremia-resolved 4. Anemia of chronic disease. 5. Hyperglycemia. Plan . RECOMMENDATIONS: CT reviewed improved signficantly, CXR also reviewed continued improvement s/p right chest tubes CT-guided . vita pus . PH 5.4 ? reliable. s/p second chest tube 03/22 f/u cxr.improving. CT chest 03/21 reviewed. S/P D/C 1st chest tube, D/C chest #2 today Follow Renal recommendations--- cr remains the same D-dimer is high, related to an empyema or malignancy. Neg v. Dopplers. Monitoring of glucose per PCP. Abx per ID-- culture NGTD spoke with Dr jewell will dc home on mono D/W RN ok To D/C from our standpoint LEO MELTON MD Mar 25, 2020 08:51
--- NOTE | 2020-03-25 08:56 | RAD ---
INDICATION: Reason: empyema / Spl. Instructions: / History: COMPARISON: One day prior FINDINGS: Single view of chest obtained. Cardiac silhouette is similar to prior. Focal opacity in the left midlung is again seen. Volume loss on the right with blunting of the right costophrenic angle and haziness throughout the right lung is again seen. IMPRESSION: * Repeat demonstration of right-sided drain at the chest with hazy opacity within the right lung which could be a combination of the patient's known pleural fluid as well as adjacent airspace consolidation. Appears similar to one day prior. Electronically signed by: Michael Noriega MD (03/25/2020 8:53 AM) [id number]
[2020-03-25] MEDS: INSULIN GLARGINE SYRINGE. SQ SCH (09:00)
--- NOTE | 2020-03-25 09:03 | PDOC ---
Infectious Disease Note Subjective Subjective pt is feeling better ROS ROS no n/v/d/fever Vital Sign Vital Signs Vital Signs Date Time Temp Pulse Resp B/P (MAP) Pulse Ox O2 Delivery O2 Flow Rate FiO2 03/25/20 07:00 97.6 76 20 163/84 (110) 99 Room Air 97.6 Physical Exam PHYSICAL EXAM GENERAL: Alert and oriented gentleman, not in distress. VITAL SIGNS: Stable, afebrile. HEENT: NAD. NECK: Supple, no JVP, no lymphadenopathy. LUNGS: Clear. Decreased breath sounds. had a chest tube in place HEART: S1, S2 regular. No gallop or murmur. ABDOMEN: Soft, nontender, no organomegaly. EXTREMITIES: No edema, cyanosis. SKIN: Unremarkable. The patient does have a Kumar catheter in place as he had a retention. Labs Lab Laboratory Tests Test 03/24/20 11:27 03/24/20 16:58 03/24/20 21:12 03/25/20 05:00 Glucose (Fingerstick) 83 mg/dL (70-99) 107 mg/dL (70-99) 166 mg/dL (70-99) Sodium Level 142 mmol/L (136-145) Potassium Level 3.9 mmol/L (3.5-5.1) Chloride Level 110 mmol/L (98-107) Carbon Dioxide Level 27 mmol/L (21-32) Anion Gap 5 (6-14) Blood Urea Nitrogen 19 mg/dL (8-26) Creatinine 2.3 mg/dL (0.7-1.3) Estimated GFR (Cockcroft-Gault) 30.9 Glucose Level 99 mg/dL (70-99) Calcium Level 7.2 mg/dL (8.5-10.1) Test 03/25/20 06:58 Glucose (Fingerstick) 54 mg/dL (70-99) Micro pleural fluid culture neg AFB neg Objective Assessment IMPRESSION: 1. Loculated right-sided pleural effusion, status post chest tube drainage. 2. Renal insufficiency. 3. Diabetes. Plan Plan of Care cont antibiotics once chest tube is removed, then d/c on po antibiotics ASHLEIGH SANFORD MD Mar 25, 2020 09:03
[2020-03-25] MEDS: LACTOBACILLUS RHAMNOSUS GG 1 CAPSULE. PO SCH (09:07)
[2020-03-25] MEDS: IV NORMAL SALINE 1000ML BAG 1,000 ML IV SCH (10:05)
[2020-03-25 11:00] VITALS: BP 154/88
--- NOTE | 2020-03-25 11:32 | PDOC ---
Renal-Progress Notes Subjective Notes Notes NO CHANGE History of Present Illness Hx of present illness STABLE Vitals Vitals Vital Signs Date Time Temp Pulse Resp B/P (MAP) Pulse Ox O2 Delivery O2 Flow Rate FiO2 03/25/20 11:00 97.8 76 20 154/88 (110) 98 Room Air 97.8 Weight Weight [ ] I.O. Intake and Output Intake and Output 03/25/20 07:00 Intake Total 2086 ml Output Total 0 ml Balance 2086 ml Intake Oral 1470 ml IV Total 616 ml Chest Tube Drainage Total 0 ml # Voids 1 # Bowel Movements 1 Labs Labs Laboratory Tests Test 03/24/20 16:58 03/24/20 21:12 03/25/20 05:00 03/25/20 06:58 Glucose (Fingerstick) 107 mg/dL (70-99) 166 mg/dL (70-99) 54 mg/dL (70-99) Sodium Level 142 mmol/L (136-145) Potassium Level 3.9 mmol/L (3.5-5.1) Chloride Level 110 mmol/L (98-107) Carbon Dioxide Level 27 mmol/L (21-32) Anion Gap 5 (6-14) Blood Urea Nitrogen 19 mg/dL (8-26) Creatinine 2.3 mg/dL (0.7-1.3) Estimated GFR (Cockcroft-Gault) 30.9 Glucose Level 99 mg/dL (70-99) Calcium Level 7.2 mg/dL (8.5-10.1) Micro Micro Microbiology 03/22/20 Gram Stain - Final, Resulted 03/22/20 Aerobic and Anaerobic Culture - Preliminary, Resulted 03/19/20 Blood Culture - Final, Complete NO GROWTH AFTER 5 DAYS Review of Systems Constitutional: yes: weakness, alert, oriented Ears/Nose/Throat: Yes: no symptom reported Eyes: Yes: no symptom reported Pulmonary: Yes dyspnea Cardiovascular: Yes no symptom reported Gastrointestional: Yes: nausea Genitourinary: Yes: no symptom reported Musculoskeletal: Yes: muscle pain, muscle stiffness Skin: Yes no symptom reported Psychiatric/Neurological: Yes: no symptom reported Endocrine: Yes: no symptom reported Hematologic/Lymphatic: Yes: no symptom reported Physical Exam General Appearance: no apparent distress Skin: warm Respiratory: decreased breath sounds Heart: S1S2, RRR Abdomen: soft, bowel sounds present Genitourinary: bladder flat, epps catheter Extremities: pulses present, no edema Neurology: alert, oriented Assessment Assessment IMP URINARY RETENTION-1.8 LITERS OUT THIS AM AFTER NO MUCH OVERNIGHT-EPPS APPEARS POSITIONAL ARSLAN-IMPROVED WITH CR DOWN TO 2.3 FROM PEAK OF 3.4 CKD STAGE 3 WITH CR OF 1.5-1.6 IN TH PAST. SUSPECT CR OF 2.3 ABOUT NEW BASELINE EMPYEMA WITH CHEST ADENOPATHY PLEURAL EFFUSION HYPONATREMIA-RESOLVED HYPERGLYCEMIA-RESOLVED ANEMIA OF CHRONIC DISEASE PLAN CHEST DRAINS HYDRATION ON FLOMAX EPPS OUT COUPLE DAYS AGO. WILL CHECK BLADDER SCAN AVOID IRON DUE TO ACUTE INFECTION CONTROL BG' WILL FOLLOW SANJAY CAMPA MD Mar 25, 2020 11:32
[2020-03-25] MEDS: DRONABINOL 2.5 MG CAPSULE. PO SCH (11:43)
--- NOTE | 2020-03-25 12:22 | NUR ---
SS following up with discharge planning. SS reviewed pt chart and discussed with pt RN. Pt had chest x-ray today. Chest tube removed. Pt on IV Rocephin and per RN, will switch to PO antibiotics. Pt is currently on room air. Discharge plan is to home when medically ready. SS will continue to follow for discharge planning.
[2020-03-25 15:00] VITALS: BP 147/81
--- NOTE | 2020-03-25 16:32 | PDOC ---
PROGRESS NOTES Date of Service: DATE: 03/25/20 TIME: 16:31 Chief Complaint Chief Complaint Assessment/Plan Multiloculated right-sided pleural effusion Mediastinal and right hilar adenopathy Hyponatremia Acute renal failure secondary to most likely vasomotor nephropathy and post renal component given urinary retention Diabetes mellitus type 2 uncontrolled Anemia of chronic disease Plan tube placed and draining purulent material will probably instill tpa as per linux consultant. Broad-spectrum antibiotics follow QuantiFERON test Nephrology consultation appreciated will give albumin and lasix and follow urinary output D-dimer is high we will continue to monitor his respiratory status unlikely to have benefit from a VQ scan Insulin therapy for better glycemic control Further recommendations based on the clinical course History of Present Illness History of Present Illness Feeling better. Denies chest pain. Stable for discharge. Vitals Vitals Vital Signs Date Time Temp Pulse Resp B/P (MAP) Pulse Ox O2 Delivery O2 Flow Rate FiO2 03/25/20 15:00 97.9 72 19 147/81 (103) 97 Room Air 97.9 Physical Exam Physical Exam GENERAL: Alert and oriented gentleman, not in distress. VITAL SIGNS: Stable, afebrile. HEENT: NAD. NECK: Supple, no JVP, no lymphadenopathy. LUNGS: Clear. Decreased breath sounds. had a chest tube in place HEART: S1, S2 regular. No gallop or murmur. ABDOMEN: Soft, nontender, no organomegaly. EXTREMITIES: No edema, cyanosis. SKIN: Unremarkable. The patient does have a Kumar catheter in place as he had a retention. General: Alert, No acute distress Heart: Regular rate, Normal S1, Normal S2 Lungs: Clear, Other (decrease bs right, chest tube in place) Abdomen: Soft, No tenderness Extremities: No clubbing, No edema Skin: No rashes, No breakdown Labs LABS Laboratory Tests Test 03/24/20 16:58 03/24/20 21:12 03/25/20 05:00 03/25/20 06:58 Glucose (Fingerstick) 107 mg/dL (70-99) 166 mg/dL (70-99) 54 mg/dL (70-99) Sodium Level 142 mmol/L (136-145) Potassium Level 3.9 mmol/L (3.5-5.1) Chloride Level 110 mmol/L (98-107) Carbon Dioxide Level 27 mmol/L (21-32) Anion Gap 5 (6-14) Blood Urea Nitrogen 19 mg/dL (8-26) Creatinine 2.3 mg/dL (0.7-1.3) Estimated GFR (Cockcroft-Gault) 30.9 Glucose Level 99 mg/dL (70-99) Calcium Level 7.2 mg/dL (8.5-10.1) Test 03/25/20 11:37 03/25/20 16:16 Glucose (Fingerstick) 106 mg/dL (70-99) 132 mg/dL (70-99) Review of Systems Review of Systems Denies chest pain, denies fever, denies nausea. Denies shortness of breath. Assessment and Plan Assessmemt and Plan Loculated right-sided pleural effusion, empyema Plan:Plan: Chest tubes removed. Discharge on antibiotics per ID. Comment Review of Relevant I have reviewed the following items ammon (where applicable) has been applied. Labs Laboratory Tests Test 03/23/20 20:24 03/24/20 05:10 03/24/20 08:11 03/24/20 11:27 Glucose (Fingerstick) 186 mg/dL (70-99) 64 mg/dL (70-99) 83 mg/dL (70-99) Sodium Level 142 mmol/L (136-145) Potassium Level 3.9 mmol/L (3.5-5.1) Chloride Level 109 mmol/L (98-107) Carbon Dioxide Level 27 mmol/L (21-32) Anion Gap 6 (6-14) Blood Urea Nitrogen 22 mg/dL (8-26) Creatinine 2.3 mg/dL (0.7-1.3) Estimated GFR (Cockcroft-Gault) 30.9 Glucose Level 98 mg/dL (70-99) Calcium Level 7.1 mg/dL (8.5-10.1) Test 03/24/20 16:58 03/24/20 21:12 03/25/20 05:00 03/25/20 06:58 Glucose (Fingerstick) 107 mg/dL (70-99) 166 mg/dL (70-99) 54 mg/dL (70-99) Sodium Level 142 mmol/L (136-145) Potassium Level 3.9 mmol/L (3.5-5.1) Chloride Level 110 mmol/L (98-107) Carbon Dioxide Level 27 mmol/L (21-32) Anion Gap 5 (6-14) Blood Urea Nitrogen 19 mg/dL (8-26) Creatinine 2.3 mg/dL (0.7-1.3) Estimated GFR (Cockcroft-Gault) 30.9 Glucose Level 99 mg/dL (70-99) Calcium Level 7.2 mg/dL (8.5-10.1) Test 03/25/20 11:37 03/25/20 16:16 Glucose (Fingerstick) 106 mg/dL (70-99) 132 mg/dL (70-99) Laboratory Tests Test 03/24/20 16:58 03/24/20 21:12 03/25/20 05:00 03/25/20 06:58 Glucose (Fingerstick) 107 mg/dL (70-99) 166 mg/dL (70-99) 54 mg/dL (70-99) Sodium Level 142 mmol/L (136-145) Potassium Level 3.9 mmol/L (3.5-5.1) Chloride Level 110 mmol/L (98-107) Carbon Dioxide Level 27 mmol/L (21-32) Anion Gap 5 (6-14) Blood Urea Nitrogen 19 mg/dL (8-26) Creatinine 2.3 mg/dL (0.7-1.3) Estimated GFR (Cockcroft-Gault) 30.9 Glucose Level 99 mg/dL (70-99) Calcium Level 7.2 mg/dL (8.5-10.1) Test 03/25/20 11:37 03/25/20 16:16 Glucose (Fingerstick) 106 mg/dL (70-99) 132 mg/dL (70-99) Microbiology 03/22/20 Gram Stain - Final, Resulted 03/22/20 Aerobic and Anaerobic Culture - Preliminary, Resulted 03/19/20 Blood Culture - Final, Complete NO GROWTH AFTER 5 DAYS Medications Current Medications Sodium Chloride 1,000 ml @ 1,000 mls/hr 1X ONCE IV Last administered on 03/18/20at 23:48; Start 03/18/20 at 23:45; Stop 03/19/20 at 00:44; Status DC Piperacillin Sod/ Tazobactam Sod 3.375 gm/Sodium Chloride 50 ml @ 100 mls/hr 1X ONCE IV Last administered on 03/19/20at 02:56; Start 03/19/20 at 02:30; Stop 03/19/20 at 02:59; Status DC Insulin Human Regular (HumuLIN R VIAL) 8 unit 1X ONCE IV Last administered on 03/19/20at 04:42; Start 03/19/20 at 04:15; Stop 03/19/20 at 04:35; Status DC Sodium Chloride 1,000 ml @ 100 mls/hr Q10H IV Last administered on 03/20/20at 09:23; Start 03/19/20 at 08:22; Stop 03/20/20 at 13:35; Status DC Ondansetron HCl (Zofran) 4 mg PRN Q4HRS PRN IV NAUSEA/VOMITING; Start 03/19/20 at 08:30 Zolpidem Tartrate (Ambien) 5 mg PRN QHS PRN PO INSOMNIA; Start 03/19/20 at 08:30 Acetaminophen (Tylenol) 650 mg PRN Q4HRS PRN PO TEMP OVER 100.4F OR MILD PAIN; Start 03/19/20 at 08:30 Diphenhydramine HCl (Benadryl) 25 mg PRN Q4HRS PRN IVP ITCHING; Start 03/19/20 at 08:30 Albuterol Sulfate (Ventolin Neb Soln) 2.5 mg PRN Q4HRS PRN NEB SHORTNESS OF BREATH; Start 03/19/20 at 08:30 Guaifenesin (Robitussin) 200 mg PRN Q4HRS PRN PO COUGH; Start 03/19/20 at 08:30 Lorazepam (Ativan) 0.5 mg PRN Q4HRS PRN PO ANXIETY / AGITATION; Start 03/19/20 at 08:30 Enoxaparin Sodium (Lovenox 40mg Syringe) 40 mg Q24H SQ ; Start 03/19/20 at 08:30; Status UNV Oxycodone HCl (Roxicodone) 5 mg PRN Q6HRS PRN PO MODERATE-SEVERE PAIN Last adm inistered on 03/19/20at 22:04; Start 03/19/20 at 08:30 Piperacillin Sod/ Tazobactam Sod 3.375 gm/Sodium Chloride 50 ml @ 100 mls/hr Q6HRS IV Last administered on 03/25/20at 11:43; Start 03/19/20 at 12:00 Insulin Human Lispro (HumaLOG) 0-9 UNITS TIDWMEALS SQ ; Start 03/19/20 at 12:00; Stop 03/19/20 at 08:36; Status DC Dextrose (Dextrose 50%-Water Syringe) 12.5 gm PRN Q15MIN PRN IV SEE COMMENTS; Start 03/19/20 at 08:30 Insulin Glargine (Lantus Syringe) 10 unit BID SQ Last administered on 03/20/20at 09:22; Start 03/19/20 at 09:00; Stop 03/20/20 at 21:19; Status DC Insulin Human Lispro (HumaLOG) 0-9 UNITS TIDWMEALS SQ Last administered on 03/20/20at 12:16; Start 03/19/20 at 08:45 Enoxaparin Sodium (Lovenox 30mg Syringe) 30 mg Q24H SQ ; Start 03/19/20 at 09:00 ; Stop 03/20/20 at 08:51; Status DC Lidocaine HCl (Buffered Lidocaine 1%) 12 ml 1X ONCE INJ ; Start 03/19/20 at 11:00; Stop 03/19/20 at 11:01; Status DC Lidocaine HCl (Lidocaine 1% 20ml Vial) 20 ml STK-MED ONCE .ROUTE ; Start 03/19/20 at 10:53; Stop 03/19/20 at 10:53; Status DC Insulin Human Lispro (HumaLOG) 5 units 1X ONCE SQ Last administered on 03/19/20at 12:51; Start 03/19/20 at 13:00; Stop 03/19/20 at 13:01; Status DC Insulin Glargine (Lantus Syringe) 10 unit BID SQ Last administered on 03/24/20at 22:07; Start 03/20/20 at 21:30 Albumin Human 100 ml @ 100 mls/hr 1X ONCE IV Last administered on 03/21/20at 11:58; Start 03/21/20 at 10:30; Stop 03/21/20 at 11:29; Status DC Furosemide (Lasix) 20 mg 1X ONCE IVP Last administered on 03/21/20at 11:57; Start 03/21/20 at 10:30; Stop 03/21/20 at 10:33; Status DC Sodium Chloride 1,000 ml @ 75 mls/hr [id number] IV Last administered on 03/25/20at 10:05; Start 03/21/20 at 12:45 Tamsulosin HCl (Flomax) 0.4 mg QHS PO Last administered on 03/24/20at 22:04; Start 03/21/20 at 21:00 Lidocaine HCl (Buffered Lidocaine 1%) 3 ml STK-MED ONCE .ROUTE ; Start 03/22/20 at 09:39; Stop 03/22/20 at 09:39; Status DC Midazolam HCl (Versed) 2 mg STK-MED ONCE .ROUTE ; Start 03/22/20 at 09:43; Stop 03/22/20 at 09:44; Status DC Fentanyl Citrate (Fentanyl 2ml Vial) 100 mcg STK-MED ONCE .ROUTE ; Start 03/22/20 at 09:43; Stop 03/22/20 at 09:44; Status DC Lidocaine HCl (Buffered Lidocaine 1%) 3 ml 1X ONCE IJ Last administered on 03/22/20at 10:15; Start 03/22/20 at 09:45; Stop 03/22/20 at 09:48; Status DC Midazolam HCl (Versed) 2 mg 1X ONCE IV Last administered on 03/22/20at 10:14; Start 03/22/20 at 09:45; Stop 03/22/20 at 09:48; Status DC Fentanyl Citrate (Fentanyl 2ml Vial) 100 mcg 1X ONCE IV Last administered on 03/22/20at 10:14; Start 03/22/20 at 09:45; Stop 03/22/20 at 09:48; Status DC Dronabinol (Marinol) 2.5 mg BIDACLD PO Last administered on 03/25/20at 11:43; Start 03/22/20 at 16:30 Tamsulosin HCl (Flomax) 0.4 mg DAILY PO ; Start 03/22/20 at 13:30; Stop 03/22/20 at 15:22; Status DC Lactobacillus Rhamnosus (Culturelle) 1 cap BID PO Last administered on 03/25/20at 09:07; Start 03/22/20 at 21:00 Active Scripts Active Oxycodone Hcl Immed.release (Oxycodone Hcl) 5 Mg Tablet 5 Mg PO PRN Q6HRS PRN Glucophage (Metformin Hcl) 1,000 Mg Tablet 1,000 Mg PO BIDWMEALS 30 Days Amaryl (Glimepiride) 2 Mg Tablet 2 Mg PO DAILY 30 Days Vitals/I & O Vital Sign - Last 24 Hours 03/24/20 03/24/20 03/24/20 03/25/20 19:14 20:02 23:25 03:17 Temp 97.8 98.2 98.3 97.8 98.2 98.3 Pulse 74 76 73 Resp 18 20 18 B/P (MAP) 142/83 (102) 166/87 (113) 177/87 (117) Pulse Ox 97 96 96 O2 Delivery Room Air Room Air Room Air Room Air 03/25/20 03/25/20 03/25/20 07:00 11:00 15:00 Temp 97.6 97.8 97.9 97.6 97.8 97.9 Pulse 76 76 72 Resp 19 B/P (MAP) 163/84 (110) 154/88 (110) 147/81 (103) Pulse Ox 99 98 97 O2 Delivery Room Air Room Air Room Air Intake and Output 03/24/20 03/24/20 03/25/20 15:00 23:00 07:00 Intake Total 350 ml 600 ml 1136 ml Output Total 0 ml 0 ml Balance 350 ml 600 ml 1136 ml Justicifation of Admission Dx: Justifications for Admission: Justification of Admission Dx: Yes PENNY DELGADILLO MD Mar 25, 2020 16:32
--- NOTE | 2020-03-25 18:14 | NUR ---
Discharge Note: PORSCHE SPEAR WARSAW Discharge instructions and discharge home medications reviewed with Patient and a copy given. All questions have been answered and understanding verbalized. The following instructions and handouts were given: PNA Discontinued lines and drains: Peripheral IV intact. Patient discharged to Home or Self Care with Family Member via Wheelchair
--- NOTE | 2020-03-25 22:30 | PDOC3 ---
Discharge Summary Visit Information Date of Admission: Mar 19, 2020 Date of Discharge: Mar 25, 2020 Final Diagnosis Multiloculated right-sided pleural effusion Brief Hospital Course Allergies Allergies Coded Allergies Type Severity Reaction Last Updated Verified No Known Drug Allergies 03/10/17 No Vital Signs Vital Signs Date Time Temp Pulse Resp B/P (MAP) Pulse Ox O2 Delivery O2 Flow Rate FiO2 03/25/20 15:00 97.9 72 19 147/81 (103) 97 Room Air 97.9 Lab Results Laboratory Tests Test 03/24/20 05:10 03/24/20 08:11 03/24/20 11:27 03/24/20 16:58 Sodium Level 142 mmol/L (136-145) Potassium Level 3.9 mmol/L (3.5-5.1) Chloride Level 109 mmol/L (98-107) Carbon Dioxide Level 27 mmol/L (21-32) Anion Gap 6 (6-14) Blood Urea Nitrogen 22 mg/dL (8-26) Creatinine 2.3 mg/dL (0.7-1.3) Estimated GFR (Cockcroft-Gault) 30.9 Glucose Level 98 mg/dL (70-99) Calcium Level 7.1 mg/dL (8.5-10.1) Glucose (Fingerstick) 64 mg/dL (70-99) 83 mg/dL (70-99) 107 mg/dL (70-99) Test 03/24/20 21:12 03/25/20 05:00 03/25/20 06:58 03/25/20 11:37 Glucose (Fingerstick) 166 mg/dL (70-99) 54 mg/dL (70-99) 106 mg/dL (70-99) Sodium Level 142 mmol/L (136-145) Potassium Level 3.9 mmol/L (3.5-5.1) Chloride Level 110 mmol/L (98-107) Carbon Dioxide Level 27 mmol/L (21-32) Anion Gap 5 (6-14) Blood Urea Nitrogen 19 mg/dL (8-26) Creatinine 2.3 mg/dL (0.7-1.3) Estimated GFR (Cockcroft-Gault) 30.9 Glucose Level 99 mg/dL (70-99) Calcium Level 7.2 mg/dL (8.5-10.1) Test 03/25/20 16:16 Glucose (Fingerstick) 132 mg/dL (70-99) Laboratory Tests Test 03/25/20 05:00 03/25/20 06:58 03/25/20 11:37 03/25/20 16:16 Sodium Level 142 mmol/L (136-145) Potassium Level 3.9 mmol/L (3.5-5.1) Chloride Level 110 mmol/L (98-107) Carbon Dioxide Level 27 mmol/L (21-32) Anion Gap 5 (6-14) Blood Urea Nitrogen 19 mg/dL (8-26) Creatinine 2.3 mg/dL (0.7-1.3) Estimated GFR (Cockcroft-Gault) 30.9 Glucose Level 99 mg/dL (70-99) Calcium Level 7.2 mg/dL (8.5-10.1) Glucose (Fingerstick) 54 mg/dL (70-99) 106 mg/dL (70-99) 132 mg/dL (70-99) Brief Hospital Course Mr. Urban is a 44 old male who presented with Multiloculated right-sided pleural effusion, mediastinal and right hilar adenopathy, acute renal failure secondary vasomotor nephropathy and post renal. Consults were placed to Pulmonology, ID, and Nephrology. Chest tubes were placed, draining purulent material. Patient was treated with road-spectrum antibiotics. As purulent drai nage resolved, chest tubes were removed and patient was stable for discharge on PO antibiotics. Discharge Information Condition at Discharge: Improved Disposition/Orders: D/C to Home Scheduled Glimepiride (Amaryl) 2 Mg Tablet, 2 MG PO DAILY for 30 Days, #30 Prescribed by: ABRAHAM PARKER MD on 02/26/17948 Last Action: HELD on 03/19/20824 by BEVERLY VALERIO MD Metformin Hcl (Glucophage) 1,000 Mg Tablet, 1,000 MG PO BIDWMEALS for 30 Days, #60 Prescribed by: ABRAHAM PARKER MD on 02/26/17948 Last Action: HELD on 03/19/20824 by BEVERLY VALERIO MD Scheduled PRN Oxycodone Hcl (Oxycodone Hcl Immed.release ) 5 Mg Tablet, 5 MG PO PRN Q6HRS PRN for MILD - MODERATE PAIN, #20 Prescribed by: ABRAHAM PARKER MD on 02/26/17 0949 Last Action: Continued on 03/19/20 08 by BEVERLY VALERIO MD Justicifation of Admission Dx: Justifications for Admission: Justification of Admission Dx: Yes PENNY DELGADILLO MD Mar 25, 2020 22:30
== END 2020-03-25 18:15 | disposition home or self-care (01) | DRG 177 ==
LOC: ER 22:19 → 2 NORTH 03-19 02:30
PROVIDERS: ADMIT Internal Medicine; ATTEND Internal Medicine
PROC: 0WP9X0Z Removal of Drainage Device from Right Pleural Cavity, External Approach (ICD-10-PCS; 2020-03-19)
PROC: 0W9930Z Drainage of Right Pleural Cavity with Drainage Device, Percutaneous Approach (ICD-10-PCS; principal; 2020-03-22)
DX: J86.9 Pyothorax without fistula (principal); N17.0 Acute kidney failure with tubular necrosis; J90 Pleural effusion, not elsewhere classified; E87.1 Hypo-osmolality and hyponatremia; J94.8 Other specified pleural conditions; D63.8 Anemia in other chronic diseases classified elsewhere; E11.22 Type 2 diabetes mellitus with diabetic chronic kidney disease; E11.65 Type 2 diabetes mellitus with hyperglycemia; E78.5 Hyperlipidemia, unspecified; F17.200 Nicotine dependence, unspecified, uncomplicated; I12.9 Hypertensive chronic kidney disease with stage 1 through stage 4 chronic kidney disease, or unspecified chronic kidney disease; J98.4 Other disorders of lung; N18.3 Chronic kidney disease, stage 3 (moderate); Z79.84 Long term (current) use of oral hypoglycemic drugs; Z83.3 Family history of diabetes mellitus
CPT/HCPCS: 32557; 36415; 71045; 71250; 76770; 80048; 80053; 80069; 81001; 82550; 82570; 82728; 82945; 82962; 83540; 83550; 83615; 83690; 83880; 83986; 84156; 84157; 84484; 85025; 85379; 85610; 85730; 86140; 87040; 87071; 87075; 87116; 88112; 88305; 88312; 88341; 88342; 89050; 93970; 94760; 96361; 96365; 96375; 99152; 99285; A4215; C1729; C1769; C1892; C1894; J1815; J1940; J2250; J2543; J3010; J3490; J7030; P9046; G0378; Q0167